=== PATIENT | female | born 1960 | race Caucasian/White ===

== ENCOUNTER 2019-09-16 12:26 | Outpatient (REF) | payer OTHER, SELFPAY ==
[2019-09-16 18:41] LABS: Hemoglobin A1C 10.1 % (3.8-5.6)
[2019-09-16 18:44] LABS: ALT 54 U/L (14-59); AST 47 U/L (15-37); Albumin 3.4 g/dL (3.4-5.0); Alkaline Phosphatase 49 U/L (46-116); Anion Gap 10.3 mmol/L (3-11); BUN 13 mg/dL (7-18); Bilirubin, Total 0.6 mg/dL (0.2-1.0); CO2 28.7 mmol/L (21.0-32.0); CREATININE 0.94 mg/dL (0.55-1.02); Calcium 8.9 mg/dL (8.5-10.1); Calculated LDL 58 mg/dL; Chloride 103 mmol/L (98-107); Cholesterol 141 mg/dL (<200); Glucose 233 mg/dL (74-106); HDL Cholesterol 41 mg/dL (40-60); Potassium 4.3 mmol/L (3.5-5.1); Sodium 142 mmol/L (136-145); Total Protein 6.7 g/dL (6.4-8.2); Triglyceride 212 mg/dL (<150)
[2019-09-16 19:23] LABS: Microalb ug/mg Crea 10.6 ug/mg Cr
== END 2019-09-16 12:46 ==
LOC: NCHCN 12:26
PROVIDERS: PCP Nurse Practitioner; Visit Provider Nurse Practitioner
DX: E11.9 Type 2 diabetes mellitus without complications (principal); I10 Essential (primary) hypertension; E78.5 Hyperlipidemia, unspecified
CPT/HCPCS: 80053; 80061; 82043; 82570; 83036

== ENCOUNTER 2019-11-13 02:35 | Outpatient (CLI) | payer OTHER, SELFPAY ==
--- NOTE | 2019-11-13 12:14 | DI.MAMMO_ITS ---
EXAM: MAMMO SCREENING CLINICAL HISTORY: SCREENING, Z12.29 TECHNIQUE: Mammograms were interpreted according to the usual protocol including computer analysis w [employer] CAD system, tomosynthesis and C-view imaging. COMPARISON: 2010 through 2018 FINDINGS: The breasts are composed of mainly fatty density , Breast Density category A. No suspicious masses or suspicious microcalcifications are seen. No skin thickening or abnormal axillary lymph nodes are seen. There has been no significant change from prior exams. IMPRESSION: Bi rads category 1, negative. Yearly screening mammography is recommended. Breast density category A, fatty density. Density:
== END 2019-11-13 02:55 ==
PROVIDERS: PCP Nurse Practitioner; Visit Provider Nurse Practitioner
DX: Z12.31 Encounter for screening mammogram for malignant neoplasm of breast (principal)
CPT/HCPCS: 77063; 77067

== ENCOUNTER 2020-05-26 20:58 | Outpatient (REF) | payer SELFPAY ==
[2020-05-28 17:17] LABS: Patient Race White; SARS-CoV-2 RNA Undetected (Undetected); SARS-CoV-2 Specimen Source Nasal
== END 2020-05-26 21:18 ==
LOC: NCHCN 20:58
PROVIDERS: PCP Nurse Practitioner; Visit Provider Nurse Practitioner
DX: Z11.59 Encounter for screening for other viral diseases (principal)
CPT/HCPCS: U0003

== ENCOUNTER 2020-06-23 14:56 | Outpatient (REF) | payer OTHER, SELFPAY ==
[2020-06-25 17:48] LABS: Patient Race White; SARS-CoV-2 RNA Undetected (Undetected); SARS-CoV-2 Specimen Source Nasal
== END 2020-06-23 15:16 ==
LOC: NCHCN 14:56
PROVIDERS: PCP Nurse Practitioner; Visit Provider Nurse Practitioner Family
DX: Z20.828 Contact with and (suspected) exposure to other viral communicable diseases (principal)
CPT/HCPCS: U0003

== ENCOUNTER 2021-02-17 12:50 | Outpatient (REF) | payer OTHER, SELFPAY ==
--- NOTE | 2021-02-17 12:15 | PAPFT_PTH ---
PATIENT: Jyoti Bonilla LOC: [facility]#:[id number] AGE/SX: 60/F ROOM: RE02/17/[address]: Akanksha Jackson : 1960 BED: DIS: 02/17/2021 SPEC #: [id number] RECD: 02/18/21 12:37 STATUS: JUAN MIGUEL REDany #: [id number] PATT: 02/17/21 12:[address]: Akanksha Jackson DEPT: [facility] Cytology RECD BY: Jessenia Narayanan Tissues: 1 - CX/ENDOCX FOR PAP SMEARS Procedures: PAP THIN PREP/UVM Screening HPV DNA PROBE Comments: [id number]
[2021-02-17 17:51] LABS: COMMENT (LAB VIEW ONLY) 401.37 mg/dL; Microalb ug/mg Crea 13.8 ug/mg Cr
[2021-02-17 20:23] LABS: ALT 49 U/L (14-59); AST 30 U/L (15-37); Albumin 3.6 g/dL (3.4-5.0); Alkaline Phosphatase 50 U/L (46-116); Anion Gap 10.7 mmol/L (3-11); BUN 15 mg/dL (7-18); Bilirubin, Total 0.4 mg/dL (0.2-1.0); CO2 27.3 mmol/L (21.0-32.0); Calcium 9.2 mg/dL (8.5-10.1); Calculated LDL 50 mg/dL (<100); Chloride 104 mmol/L (98-107); Cholesterol 130 mg/dL (<200); Estimated GFR 56.18 (mL/min/1.73m2); Glucose 232 mg/dL (74-106); HDL Cholesterol 46 mg/dL (40-60); Potassium 3.6 mmol/L (3.5-5.1); Sodium 142 mmol/L (136-145); Total Protein 6.9 g/dL (6.4-8.2); Triglyceride 174 mg/dL (<150)
== END 2021-02-17 12:51 | disposition home or self-care (01) ==
LOC: NCHCN 12:50
PROVIDERS: PCP Nurse Practitioner; Visit Provider Nurse Practitioner
DX: Z12.4 Encounter for screening for malignant neoplasm of cervix (principal); Z11.51 Encounter for screening for human papillomavirus (HPV); I10 Essential (primary) hypertension; E11.9 Type 2 diabetes mellitus without complications; E78.5 Hyperlipidemia, unspecified; Z00.00 Encounter for general adult medical examination without abnormal findings
CPT/HCPCS: 80053; 80061; 88142; 82043; 82570; 87624

== ENCOUNTER 2021-10-12 16:43 | Outpatient (REF) | payer OTHER, SELFPAY ==
[2021-10-12 15:31] LABS: BUN 15 mg/dL (7-18); CREATININE 0.8 mg/dL (0.55-1.02); Calcium 9.7 mg/dL (8.5-10.1); Chloride 103 mmol/L (98-107); Glucose 133 mg/dL (74-106); Sodium 141 mmol/L (136-145)
== END 2021-10-12 16:44 | disposition home or self-care (01) ==
LOC: LBN 16:43
PROVIDERS: PCP Nurse Practitioner; Visit Provider Nurse Practitioner Family
DX: E11.9 Type 2 diabetes mellitus without complications (principal)
CPT/HCPCS: 80048

== ENCOUNTER 2021-10-12 17:20 | Outpatient (REF) | payer OTHER, SELFPAY | END 2021-10-12 17:21 | disposition home or self-care (01) | LOC: LBN 17:20 | PROVIDERS: PCP Nurse Practitioner; Visit Provider Nurse Practitioner Family ==

== ENCOUNTER 2022-02-14 07:43 | Day surgery (SDC) | payer OTHER, SELFPAY ==
--- NOTE | 2022-02-14 06:41 | COLE_ITS ---
Colonoscopy Report Date of procedure: 02/14/22 Pre-op diagnosis general: Colon Cancer screening Post-op diagnosis procedure note: same Procedure: Colonoscopy Surgeon: Tracy Javier Anesthesia Type: General:No Airway Estimated blood loss (mL): 0 Pathology: none sent Complications: None Disposition: same day Indications: The patient is here for Colonoscopy pre-op. Her last screening was in 2010, at which time biopsies were taken however they were insufficient for diagnosis. She has no family history of colon cancer. She has not had any bowel habit changes. -Discussed colonoscopy bowel prep as well as the procedure. Discussed possible complications of the procedure to include bleeding, pain, perforation, missed small lesion/polyp, sore throat, aspiration and adverse reaction to the medications. Questions were answered to patient?s satisfaction. No guarantees were implied or given.? Prep: Miralax/Dulcolax Procedure Start Time: 08:33 Procedure End Time: 08:54 Retraction Time: 8 minutes Findings: Normal colonoscopy Procedure Description: After informed consent was obtained the patient was taken to the procedure room and placed in a left decubitous position. Monitors were applied and a time out was done. The patients name, date of , procedure, allergies to m edications and metal in their body was reviewed. The patient was then sedated. Once sedated and comfortable a rectal exam was done. External exam was normal. Internal exam revealed a normal sphincter tone and no palpable masses. The scope was then introduced and retro-flexed. No internal hemorrhoids, polyps or masses were identified on retro-flexion. The scope was then advanced to the cecum without difficulty. The ileocecal vlave and appendiceal orifice were identified. The prep was good. The scope was then slowly retracted over 8 minutes back into the rectum. There were no polyps. There was no diverticulosis noted. The scope was removed and the patient was woken up and taken back to Same day surgery in stable condition. The patient tolerated the procedure well and there were no immediate complications. Follow up: The patient should follow up in 10 years unless they develop changes in bowel habits or other new gastrointestinal complaints.
--- NOTE | 2022-02-14 06:42 | W.PM.DSUDISC ---
Discharge Plan Disposition Patient Disposition: HOME Condition: Good Discharge Details Reason For Visit: Colonoscopy Attending Provider: Tracy Javier Primary Care Provider: Akanksha Jackson Home Meds and New Rx's Prescriptions: Continued insulin glargine [Lantus Solostar U-100 Insulin] 100 unit/mL (3 mL) insulin pen 20 unit subcut QPM metformin 500 mg tablet 1,000 mg PO BID simvastatin 20 mg tablet 20 mg PO DAILY aspirin [Adult Aspirin Regimen] 81 mg tablet,delayed release (DR/EC) 81 mg PO DAILY cholecalciferol (vitamin D3) 25 mcg (1,000 unit) capsule 25 mcg PO DAILY omega-3 fatty acids 500 mg capsule 500 mg PO DAILY Antacid (calcium carbonate) 215 mg calcium (500 mg) tablet,chewable 430 mg PO DAILY multivitamin Tablet 1 tab PO DAILY lisinopril 5 mg tablet 5 mg PO DAILY Trulicity 3 mg/0.5 mL pen injector 3 mg subcut QWEEK Discharge Instructions Additional Instructions: Findings: Normal colonoscopy Follow up: 10 years Please call if you develop: fevers >101.5 Nausea or Vomiting Abdominal pain that is not transient Rectal bleeding that is more then a tbsp A hard abdomen and inability to pass gas DAY SURGERY UNIT POST ENDOSCOPY INSTRUCTIONS Instructions for everyone who is given Anesthesia: For your safety, please do the following for the next 24 Hours: a. Do not drive or operate dangerous equipment b. Do not drink alcohol beverages or use any recreational drugs for the first 24 hours or while taking pain medications. The medications in your body may have a reaction that can be dangerous. c. Do not make any important decisions or sign any important papers 1. Generally there are no restrictions on your activity after a day or so has gone by, but you may feel a bit fatigued for a few days. 2. After you arrive home you may have a light meal and return to a normal diet as you can tolerate it without feeling sick to your stomach. 3. After surgery, you may feel pain or discomfort. This should be only transient, but if it persists please contact your doctor. 4. If there are any questions regarding the findings of your procedure, please feel free to contact your doctor. 6. If you are unable to contact your doctor with a problem, contact the hospital at [phone]. 7. Continue all your regular medications unless directed otherwise. I understand the above instructions and have no questions. Signature of Patient or Responsible Adult Escort Date/Time Name of Responsible Adult Escort Signature of Nurse Date/Time Activity:: Activity as Tolerated Diet:: As Tolerated Discharge Orders Discharge Orders: Discharge Order (Routine); Ordered 02/14/22 Ordered By: Tracy Javier
[2022-02-14 08:05] VITALS: BP 142/73; PULSE 88; RESP 16; TEMP 35.9; O2SAT 97
[2022-02-14] MEDS: Lactated Ringers 1,000 ML 80 ML IV (08:13)
--- NOTE | 2022-02-14 08:18 | W.ANESPRE ---
General Info Date of Service Date Performed: 02/14/22 Height: 5 ft 5 in Weight: 110.4 kg Body Mass Index (BMI): 40.5 Surgical Procedure: Operation Date: 02/14/22 08:50 Proposed Procedure Side Surgeon bereket Javier MD Meds Allergies and Home Medications Allergies Allergy/AdvReac Type Severity Reaction Status Date / Time No Known Allergies Allergy Verified 02/14/22 08:02 Home Medication Medication Instructions Recorded aspirin 81 mg tablet,delayed 81 mg PO DAILY 01/21/22 release (Adult Aspirin Regimen) calcium carbonate 215 mg calcium 430 mg PO DAILY 01/21/22 (500 mg) chewable tablet (Antacid (calcium carbonate)) cholecalciferol (vitamin D3) 25 25 mcg PO DAILY 01/21/22 mcg (1,000 unit) capsule insulin glargine 100 unit/mL (3 20 unit subcut QPM 01/21/22 mL) subcutaneous pen (Lantus Solostar U-100 Insulin) metformin 500 mg tablet 1,000 mg PO BID 01/21/22 multivitamin 1 tab PO DAILY 01/21/22 omega-3 fatty acids 500 mg capsule 500 mg PO DAILY 01/21/22 simvastatin 20 mg tablet 20 mg PO DAILY 01/21/22 lisinopril 5 mg tablet 5 mg PO DAILY 01/27/22 dulaglutide 3 mg/0.5 mL 3 mg subcut QWEEK 01/28/22 subcutaneous pen injector (Trulicity) Current Visit Medications: Current Medications Generic Name Dose Route Start Last Admin Trade Name Freq PRN Reason Stop Dose Admin Hyoscyamine Sulfate 0.125 mg 02/14/22 06:43 Hyoscyamine 0.125 Mg Sl/Oral/Chew SL DIRECTED PRN Ringer's Solution 1,000 mls @ 80 mls/hr 02/14/22 06:00 02/14/22 08:13 IV 03/13/22 23:59 80 mls/hr INFUSION SILVIANO Administration IV Miscellaneous Supplies 1 each 02/14/22 06:00 Iv Access IV 03/13/22 23:59 DIRECTED SILVIANO Ondansetron HCl 4 mg 02/14/22 06:43 Ondansetron 4 Mg/2 Ml Vial IVP Q4H PRN PRN Nausea / Vomiting Sodium Chloride 0 ml 02/14/22 06:00 Normal Saline Flush 10 Ml Syr IV 03/13/22 23:59 PRN PRN Sodium Chloride 0 ml 02/14/22 06:00 Normal Saline 10 Ml Vial IJ 03/13/22 23:59 DIRECTED PRN Sterile Water 0 ml 02/14/22 06:00 Water,Injection,Sterile 10 Ml Vial IJ 03/13/22 23:59 DIRECTED PRN PFSH Active Problems Active Problems: Problem Status Onset Code Screening for colon cancer Z12.11 Diabetes E11.9 Hypertension I10 Morbid obesity E66.01 Medical History Medical History Chronic back pain Depression Headache Hyperlipidemia Neoplasm of unspecified nature of bone, soft tissue, 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 Surgical History Surgical History History of cholecystectomy History of colonoscopy History of tubal ligation Tobacco Smoking/Tobacco Use Status: Never Alcohol Alcohol Intake: current Alcohol intake frequency: a few times a month Alcohol type: wine and hard liquor Substance Use Substance use: Never Substance use type: does not use Vital Signs and Lab Results Vital Signs Most Recent Vital Signs in EMR: Most Recent Vital Signs Temp Pulse Resp BP Pulse Ox 35.9 C L 88 16 142/73 H 97 02/14/22 08:05 02/14/22 08:05 02/14/22 08:05 02/14/22 08:05 02/14/22 08:05 Point of Care Results Point of Care Results: Finger Stick Blood Glucose 99 02/14/22 08:12 Lab Results Blood Type / Crossmatch: No Data to Display Complete Blood Count: No Data to Display Complete Metabolic Panel: No Data to Display Liver Function Panel: No Data to Display Coagulation Panel: No Data to Display Cardiac Panel: No Data to Display Arterial Blood Gas: No Data to Display Venous Blood Gas: No Data to Display Pancreas Panel: No Data to Display Thyroid Panel: No Data to Display Infectious Disease: No Data to Display Blood Cultures: No Data to Display Toxicology Panel: No Data to Display Anesthesia Assessment and Plan Anesthesia History Personal History: No History of Anesthesia Complications Family History: No Family History of Anesthesia Complications Exercise Tolerance Exercise Tolerance: Metabolic Equivalents>4 Pertinent Negatives Pertinent Negatives: No Symptoms of GERD, No Major Cardiovascular Symptoms or Complaints and No Major Pulmonary Symptoms or Complaints Cardiac & Pulmonary Exam Cardiac Exam: Normal S1/S2 Heart Sounds Pulmonary Exam: Clear Bilateral Breath Sounds Implantable Cardiac Device Does patient have a Pacemaker or an ICD?: No Airway Exam Known Difficult Airway: No Mallampati Class: 3 Mouth Opening: Narrow (< 3cm) Thyromental Distance: Greater than 3 cm Neck Range of Motion: Full ROM Neck Circumference: Normal Teeth Condition: Normal Dentition ASA Classification ASA Score: ASA 3 Emergency Case?: No NPO Status NPO Status: NPO Clears >2 hours, Solids >8 hours Anesthesia Plan Resuscitation Status: Full Code Anesthesia Technique: General Anesthesia Airway Planned: Natural Airway Monitors Used: Standard Monitors
[2022-02-14 08:25] VITALS: BMI 40.5
[2022-02-14 09:00] VITALS: BP 106/57; PULSE 79; RESP 20; TEMP 36.1; O2SAT 96
[2022-02-14 09:26] VITALS: BP 111/63; PULSE 74; RESP 18; TEMP 36.1; O2SAT 96
--- NOTE | 2022-02-14 09:39 | W.ANESPOSTOP ---
Postoperative Evaluation Date, Time and Location Date Performed: 02/14/22 Time Performed: 09:15 Patient Location: Day Surgery Unit Vital Signs Most Recent Imported Vital Signs: Most Recent Vital Signs Temp Pulse Resp BP Pulse Ox 36.1 C L 74 18 111/63 96 02/14/22 09:26 02/14/22 09:26 02/14/22 09:26 02/14/22 09:26 02/14/22 09:26 Pain Score Most Recent Pain Score: Most Recent Pain Score Pain Level 0 02/14/22 09:26 Assessment Mental Status: Awake (Alert & Oriented to Patient Baseline) Airway and Respiratory Function: Patent airway with normal (patient baseline) respiratory exam Cardiovascular Function: Hemodynamically Stable Hydration Status: Adequately Hydrated Nausea & Vomiting: No Nausea or Vomiting Pain: Pt. Denies Any Pain Peripheral Nerve Block: Patient did not receive a nerve block
== END 2022-02-14 09:47 | disposition home or self-care (01) ==
PROVIDERS: PCP Nurse Practitioner; Visit Provider Surgery
PROC: 0DJD8ZZ Inspection of Lower Intestinal Tract, Via Natural or Artificial Opening Endoscopic (ICD-10-PCS; CPT 45378; principal; 2022-02-14 08:45)
DX: Z12.11 Encounter for screening for malignant neoplasm of colon (principal); E11.9 Type 2 diabetes mellitus without complications; E66.01 Morbid (severe) obesity due to excess calories; I10 Essential (primary) hypertension
CPT/HCPCS: 45378

== ENCOUNTER 2022-10-24 01:36 | Outpatient (CLI) | payer OTHER, SELFPAY ==
--- NOTE | 2022-10-24 12:45 | DI.MAMMO_ITS ---
Exam(s) MAMMO SCREENING EXAM: MAMMO SCREENING CLINICAL HISTORY: SCREENING, Z12.39 TECHNIQUE: Mammograms were interpreted according to the usual protocol including computer analysis w [employer] CAD system, tomosynthesis and C-view imaging. COMPARISON: 2013 through 2019 FINDINGS: The breasts are composed of mainly fatty density , Breast Density category A. No suspicious masses or suspicious microcalcifications are seen. No skin thickening or abnormal axillary lymph nodes are seen. There has been no significant change from prior exams. IMPRESSION: BI-RADS Category 1, Negative mammogram Yearly screening mammography is recommended. Breast Density - Category A, fatty density. A negative radiographic report should not delay biopsy if a dominant or clinically suspicious mass is present. Up to ten percent of cancers are not identified on mammography. A negative report may reinforce clinical impression. Adenosis and dense breasts may obscure an underlying neoplasm. False positive reports average 6 to 10%. Patient will receive a letter notifying them of these results.
== END 2022-10-24 01:56 ==
LOC: DI 01:36
PROVIDERS: PCP Nurse Practitioner; Visit Provider Nurse Practitioner Family
DX: Z12.31 Encounter for screening mammogram for malignant neoplasm of breast (principal)
CPT/HCPCS: 77063; 77067

== ENCOUNTER 2023-05-23 12:48 | Outpatient (CLI) | payer OTHER, SELFPAY ==
[2023-05-23 12:56] LABS: Abs Immature Grans 0.01 10^3/uL (0.0-0.06); Absolute Basophil Count 0.01 10^3/uL (0.0-0.2); Absolute Eosinophil Count 0.05 10^3/uL (0.0-0.7); Absolute Lymphocyte Count 1.47 10^3/uL (1.2-3.4); Absolute Monocyte Count 0.28 10^3/uL (0.1-0.8); Basophils % 0.2; Eosinophils % 1.2; HCT 38.3 % (36.0-46.0); HGB 12.4 g/dL (11.2-15.7); Immature Grans % 0.2; MCHC 32.4 % (32.0-36.0); MCV 93 fL (80-95); MPV 10.5 fL (8.0-11.0); Monocytes % 6.5; Neutrophils % 57.9; Platelet Count 100 10^3/uL (130-400); RBC 4.13 10^6/uL (3.93-5.22); RDW 13.2 % (11.7-14.6); RDW-SD 45.1 fL; WBC 4.32 10^3/uL (4.4-10.8)
[2023-05-23 13:20] LABS: ALT 54 U/L (14-59); AST 66 U/L (15-37); Albumin 3.2 g/dL (3.4-5.0); Alkaline Phosphatase 50 U/L (46-116); Anion Gap 9.2 mmol/L (3-11); BUN 20 mg/dL (7-18); Bilirubin, Total 0.4 mg/dL (0.2-1.0); CO2 25.8 mmol/L (21.0-32.0); Calcium 9.3 mg/dL (8.5-10.1); Calculated LDL 58 mg/dL (<100); Chloride 104 mmol/L (98-107); Cholesterol 145 mg/dL (<200); Estimated GFR 62.91 (mL/min/1.73m2); Glucose 195 mg/dL (74-106); HDL Cholesterol 46 mg/dL (40-60); Sodium 139 mmol/L (136-145); Total Protein 6.8 g/dL (6.4-8.2); Triglyceride 208 mg/dL (<150)
== END 2023-05-23 12:49 | disposition home or self-care (01) ==
LOC: LBO 12:48
PROVIDERS: PCP Nurse Practitioner; Visit Provider Nurse Practitioner Family
DX: E11.9 Type 2 diabetes mellitus without complications (principal); I10 Essential (primary) hypertension; E78.5 Hyperlipidemia, unspecified
CPT/HCPCS: 36415; 80053; 80061; 85025

== ENCOUNTER 2024-06-18 15:16 | Outpatient (CLI) | payer OTHER, SELFPAY ==
[2024-06-18 15:01] LABS: HCT 37.4 % (36.0-46.0); HGB 12.2 g/dL (11.2-15.7); MCH 29.6 pg (27.0-33.0); MCHC 32.6 % (32.0-36.0); MCV 91 fL (80-95); MPV 9.8 fL (8.0-11.0); Platelet Count 123 10^3/uL (130-400); RBC 4.12 10^6/uL (3.93-5.22); RDW 13.2 % (11.7-14.6); WBC 4.83 10^3/uL (4.4-10.8)
[2024-06-18 16:37] LABS: ALT 24 U/L (14-59); AST 25 U/L (15-37); Albumin 3.3 g/dL (3.4-5.0); Alkaline Phosphatase 59 U/L (46-116); Anion Gap 9.2 mmol/L (3-11); BUN 16 mg/dL (7-18); Bilirubin, Total 0.54 mg/dL (0.2-1.0); CO2 27.8 mmol/L (21.0-32.0); CREATININE 0.9 mg/dL (0.55-1.02); Calcium 9.6 mg/dL (8.5-10.1); Calculated LDL 99 mg/dL (<100); Chloride 109 mmol/L (98-107); Cholesterol 180 mg/dL (<200); Estimated GFR 70.95 (mL/min/1.73m2); Glucose 105 mg/dL (74-106); HDL Cholesterol 52 mg/dL (40-60); Potassium 4.3 mmol/L (3.5-5.1); Sodium 146 mmol/L (136-145); Total Protein 6.8 g/dL (6.4-8.2); Triglyceride 147 mg/dL (<150); Vitamin D 25 Total 36.6 ng/mL (30-100)
[2024-06-18 16:57] LABS: Hemoglobin A1C 5.7 % (<5.7)
[2024-06-18 23:27] LABS: HIV-1/2 Ag & Ab Screen Negative (Negative)
[2024-06-18 23:35] LABS: Hepatitis C Ab w Rflx HCV PCR Negative (Negative)
== END 2024-06-18 15:17 | disposition home or self-care (01) ==
LOC: LBO 15:18
PROVIDERS: Visit Provider Nurse Practitioner Family
DX: Z00.00 Encounter for general adult medical examination without abnormal findings (principal)
CPT/HCPCS: 36415; 80053; 80061; 82306; 85027; 86803; 87389; 83036

== ENCOUNTER 2024-06-26 02:22 | Outpatient (CLI) | payer OTHER, SELFPAY ==
--- NOTE | 2024-06-26 | DI.MAMMO_ITS ---
Exam(s) MAMMO SCREENING EXAM: MAMMO SCREENING CLINICAL HISTORY: SCREENING, Z12.31. TECHNIQUE: Bilateral full field digital CC and MLO mammographic images were obtained with 3D tomosyn thesis and utilizing computer aided detection (CAD). COMPARISON: Prior mammograms were reviewed. FINDINGS: There has been no significant change in the appearance and distribution of the fibroglandular tissue. Skin moles bilaterally again noted. There are no new spiculated masses nor malignant appearing microcalcification groups. There is no significant architectural distortion nor skin thickening-retraction. IMPRESSION: No radiographic evidence of malignancy. BI-RADS Category 1 - Negative Breast Density - Category A - Almost entirely fatty Breast density Category C or D implies that the patient has dense breast tissue. Dense breast tissue can make it harder to find cancer on a mammogram. Dense breast tissue is also associated with an incr eased risk of breast cancer. This information about the result of the mammogram report was provided to the patient to raise their awareness. Use this report when you speak with the patient about their risks for breast cancer, which includes their family history. At that time, you may recommend additional screening tests (Ultrasoun d or MRI) as these tests may add significant information. A negative radiographic report should not delay biopsy if a dominant or clinically suspicious mass is present. Up to ten percent of cancers are not identified on mammography. A negative report may reinforce clinical impression. Adenosis and dense breasts may obscure an underlying neoplasm. False positive reports average 6 to 10%. Patient will receive a letter notifying them of these results.
== END 2024-06-26 02:42 ==
LOC: DI 02:22
PROVIDERS: Visit Provider Nurse Practitioner Family
DX: Z12.31 Encounter for screening mammogram for malignant neoplasm of breast (principal)
CPT/HCPCS: 77063; 77067

== ENCOUNTER 2024-07-04 02:18 | Outpatient (CLI) | payer OTHER, SELFPAY ==
--- NOTE | 2024-07-04 | DI.DEXA_ITS ---
Exam(s) XR DEXA BONE DENSITY W/WO LALITHA EXAM: XR DEXA BONE DENSITY W/WO LALITHA CLINICAL HISTORY: Asymptomatic menopausal state, Z78.0; Screening for osteoporosis, Z13.820 TECHNIQUE: [employer] C densitometer analysis of left hip, lumbar spine and left forearm. Lat eral survey image of the thoracic and lumbar spine. COMPARISON: No exams were available for comparison FINDINGS: Lateral view of the thoracic and lumbar spine shows no evidence of compression fractures. Bone mineral density measurements of the lumbar spine correspond to a total T-score of 2.4, in the n ormal range. Bone mineral density measurements of the left hip correspond to a total T-score of 0.7. The femoral neck T-score is 0.7, in the normal range. Theleft forearm bone mineral density measurements correspond to a T-score of the distal 3rd of -0.5, in the normal range. IMPRESSION: Normal bone mineral density.
== END 2024-07-04 02:38 ==
PROVIDERS: PCP Nurse Practitioner Family; Visit Provider Nurse Practitioner Family
DX: Z13.820 Encounter for screening for osteoporosis (principal); Z78.0 Asymptomatic menopausal state
CPT/HCPCS: 77080

== ENCOUNTER 2024-10-10 14:32 | Outpatient (REF) | payer OTHER, SELFPAY ==
--- NOTE | 2024-10-10 14:30 | PAPFT_PTH ---
PATIENT: Jyoti Bonilla LOC: [facility] U#:[id number] AGE/SX: 64/F ROOM: RE10/10/[address]: Bonnie Crawford DO : 1960 BED: DIS: 10/10/2024 SPEC #: [id number] RECD: 10/10/24 17:36 STATUS: RAFAELAAarti REQ #: [id number] PATT: 10/10/24 14:[address]: Bonnie Crawford DEPT: [facility] Cytology RECD BY: Jessenia Narayanan ENTERED: 10/10/24 17:37 SP TYPE: PAPFT OTHR DR: JAYDA AGUILERA NP Tissues: 1 - CX/ENDOCX FOR PAP SMEARS Procedures: PAP THIN PREP/UVM Screening HPV DNA PROBE Comments: [id number] (HPV 16 & 18/45)
--- NOTE | 2024-10-10 14:30 | ENDOMET_PTH ---
PATIENT: Jyoti oBnilla LOC: [facility] U#:[id number] AGE/SX: 64/F ROOM: RE10/10/[address]: Bonnie Crawford DO : 1960 BED: DIS: 10/10/2024 SPEC #: [id number] RECD: 10/10/24 16:29 STATUS: JUAN MIGUEL RE #: [id number] PATT: 10/10/24 14:[address]: Bonnie Crawford DEPT: Surgical Specimen RECD BY: Jessenia Narayanan ENTERED: 10/10/24 16:30 SP TYPE: Endomet OTHR DR: JAYDA AGUILERA NP Tissues: 1 - ENDOMETRIUM BX/ALFREDA Procedures: GROSS AND MICRO LEVEL 4 IMMUNOPEROXIDASE STAIN Comments: [id number]
== END 2024-10-10 14:33 | disposition home or self-care (01) ==
LOC: LBN 14:32
PROVIDERS: PCP Nurse Practitioner Family; Visit Provider Obstetrics & Gynecology
DX: Z11.51 Encounter for screening for human papillomavirus (HPV) (principal); Z01.419 Encounter for gynecological examination (general) (routine) without abnormal findings; C54.1 Malignant neoplasm of endometrium
CPT/HCPCS: 88142; 88305; 87624; 88361

== ENCOUNTER 2025-01-15 02:35 | Outpatient (RCR) | payer OTHER, SELFPAY ==
[2025-01-15] MEDS: Normal Saline Flush 10 ML SYR IVP (07:59)
[2025-01-15 08:07] LABS: Abs Immature Grans 0.02 10^3/uL (0.0-0.06); Absolute Basophil Count 0.05 10^3/uL (0.0-0.2); Absolute Eosinophil Count 0.11 10^3/uL (0.0-0.7); Absolute Lymphocyte Count 2.02 10^3/uL (1.2-3.4); Absolute Monocyte Count 0.52 10^3/uL (0.1-0.8); Absolute Neutrophil Count 2.56 10^3/uL (1.2-6.7); Basophils % 0.9 %; Eosinophils % 2.1 %; HCT 34.2 % (36.0-46.0); HGB 11.2 g/dL (11.2-15.7); Immature Grans % 0.4 %; Lymphocytes % 38.3 %; MCH 28.3 pg (27.0-33.0); MCHC 32.7 % (32.0-36.0); MCV 86 fL (80-95); MPV 9.2 fL (8.0-11.0); Monocytes % 9.8 %; Neutrophils % 48.5 %; Platelet Count 193 10^3/uL (130-400); RBC 3.96 10^6/uL (3.93-5.22); RDW 15.3 % (11.7-14.6); RDW-SD 46.2 fL; WBC 5.28 10^3/uL (4.4-10.8)
[2025-01-15 08:37] LABS: ALT 28 U/L (14-59); AST 24 U/L (15-37); Albumin 2.7 g/dL (3.4-5.0); Alkaline Phosphatase 67 U/L (46-116); Anion Gap 10.4 mmol/L (3-11); BUN 15 mg/dL (7-18); Bilirubin, Total 0.3 mg/dL (0.2-1.0); CO2 25.6 mmol/L (21.0-32.0); CREATININE 0.8 mg/dL (0.55-1.02); Calcium 9.1 mg/dL (8.5-10.1); Chloride 106 mmol/L (98-107); Estimated GFR 81.21 (mL/min/1.73m2); Glucose 156 mg/dL (74-106); Potassium 3.2 mmol/L (3.5-5.1); Sodium 142 mmol/L (136-145); TSH 5.21 uIU/mL (0.36-3.74); Total Protein 6.5 g/dL (6.4-8.2)
== END 2025-02-01 23:59 | disposition home or self-care (01) ==
LOC: INF 02:35
PROVIDERS: Obstetrics & Gynecology Gynecologic Oncology; PCP Nurse Practitioner Family; Visit Provider Internal Medicine Hematology & Oncology
DX: C54.1 Malignant neoplasm of endometrium (principal)
CPT/HCPCS: 36591; 80053; 84439; 84443; 85025

== ENCOUNTER 2025-01-20 14:41 | Outpatient (CLI) | payer OTHER, SELFPAY ==
--- NOTE | 2025-01-20 | DI.US_ITS ---
Exam(s) US LOWER EXTREMITY VENOUS LT EXAM: US LOWER EXTREMITY VENOUS LT CLINICAL HISTORY: EDEMA LT LOWER LEG, ?? DVT,R60.0. TECHNIQUE: Lower extremity venous ultrasound performed using grayscale, color-flow, and spectral Do ppler analysis. COMPARISON: No exams were available for comparison FINDINGS: The common femoral, femoral and popliteal veins demonstrate normal compressibility, augmentation, and color Doppler. The posterior tibial and peroneal veins are patent. No saphenous vein thrombosis or other superficial venous thrombosis is seen. No hematoma or Martines's cyst is seen. IMPRESSION: Negative lower extremity ultrasound. No evidence of DVT. DATA REPOSITORY:
[2025-01-20 16:48] LABS: Bilirubin Negative (Negative); Blood Negative (Negative); Clarity Clear (Clear); Glucose Negative (Negative); Ketones Negative (Negative); Leukocyte Esterase Negative (Negative); Nitrite Negative (Negative); Urobilinogen 0.2 mg/dL (Up to 0.2); pH 5.5 (5-8)
== END 2025-01-20 14:42 | disposition home or self-care (01) ==
LOC: DI 14:41 → LBN 16:11
PROVIDERS: PCP Nurse Practitioner Family; Visit Provider Nurse Practitioner Family
DX: R35.0 Frequency of micturition (principal)
CPT/HCPCS: 81003; 93971

== ENCOUNTER 2025-02-05 02:03 | Outpatient (RCR) | payer OTHER, SELFPAY ==
[2025-02-05] MEDS: Normal Saline Flush 10 ML SYR IVP (07:47)
[2025-02-05 08:15] LABS: Abs Immature Grans 0.06 10^3/uL (0.0-0.06); Absolute Basophil Count 0.03 10^3/uL (0.0-0.2); Absolute Eosinophil Count 0.07 10^3/uL (0.0-0.7); Absolute Lymphocyte Count 2.41 10^3/uL (1.2-3.4); Absolute Monocyte Count 0.63 10^3/uL (0.1-0.8); Basophils % 0.4 %; Eosinophils % 0.9 %; HCT 33.3 % (36.0-46.0); HGB 10.6 g/dL (11.2-15.7); Immature Grans % 0.7 %; Lymphocytes % 29.4 %; MCH 28.6 pg (27.0-33.0); MCHC 31.8 % (32.0-36.0); MCV 90 fL (80-95); MPV 9.6 fL (8.0-11.0); Monocytes % 7.7 %; Neutrophils % 60.9 %; Platelet Count 190 10^3/uL (130-400); RBC 3.71 10^6/uL (3.93-5.22); RDW 18.6 % (11.7-14.6); RDW-SD 57.2 fL
[2025-02-05 08:56] LABS: ALT 24 U/L (14-59); AST 21 U/L (15-37); Albumin 3.1 g/dL (3.4-5.0); Alkaline Phosphatase 56 U/L (46-116); Anion Gap 11.2 mmol/L (3-11); BUN 17 mg/dL (7-18); Bilirubin, Total 0.5 mg/dL (0.2-1.0); CO2 25.8 mmol/L (21.0-32.0); CREATININE 0.9 mg/dL (0.55-1.02); Calcium 9.3 mg/dL (8.5-10.1); Chloride 105 mmol/L (98-107); Estimated GFR 70.51 (mL/min/1.73m2); Glucose 122 mg/dL (74-106); Potassium 3.8 mmol/L (3.5-5.1); Sodium 142 mmol/L (136-145); TSH 10.31 uIU/mL (0.36-3.74); Total Protein 7.1 g/dL (6.4-8.2)
[2025-02-05 09:26] LABS: T4 10.3 ug/dL (4.7-13.3)
[2025-02-05 10:21] LABS: FREE T4 1.25 ng/dL (0.76-1.46)
[2025-02-05 19:16] LABS: CA 125 38 U/mL (<30)
== END 2025-03-03 23:59 | disposition home or self-care (01) ==
LOC: INF 02:03
PROVIDERS: PCP Nurse Practitioner Family; Visit Provider Internal Medicine Hematology & Oncology
DX: C54.1 Malignant neoplasm of endometrium (principal); Z45.2 Encounter for adjustment and management of vascular access device
CPT/HCPCS: 36591; 80053; 86304; 84436; 84439; 84443; 85025

== ENCOUNTER 2025-02-28 16:51 | Inpatient (IN) | payer OTHER, SELFPAY ==
[2025-02-28] VITALS (41 sets, daily range): BP systolic 86–146; BP diastolic 22–81; PULSE 92–126; RESP 15–30; TEMP 36.7; O2SAT 91–95
--- NOTE | 2025-02-28 16:45 | RT.EKG_ITS ---
APPROVED REPORT Exam: Resting ECG Reason for Exam: dizziness Patient Location: E HR:105 bpm ECG Measurements Heart Rate 105 AXIS SC 147 P 42 QRSd 80 QRS -26 QT 330 T 28 QTc 436 Conclusion Sinus tachycardia 105 normal axis no stemi
--- NOTE | 2025-02-28 17:28 | W.ED.GENAD ---
Discharge Plan Disposition Patient Disposition: Admit to [facility] Condition: Stable Discharge Details Clinical Impression: Pleural effusion Primary Care Provider: JAYDA AGUILERA ED Provider: Rajinder Pete Home Meds and New Rx's Prescriptions: No Action ondansetron 4 mg tablet,disintegrating 4 - 8 mg PO Q8H PRN Patient Comments: place ONE TO TWO tablets ON THE TONGUE every EIGHT hours needed, not TO exceed FOUR tablets PER DAY prochlorperazine maleate 10 mg tablet 10 mg PO Q6H PRN Patient Comments: TAKE ONE TABLET BY MOUTH EVERY 6 HOURS ON schedule FOR THE first THREE DAYS AFTER chemotherapy, THEN take ONE tablet every SIX hours needed FOR NAUSEA AND vomiting dexamethasone 4 mg tablet 4 mg PO BID PRN Patient Comments: TAKE ONE TABLET BY MOUTH TWICE DAILY NEEDED FOR NAUSEA OR FOR VOMITING insulin glargine [Lantus Solostar U-100 Insulin] 100 unit/mL (3 mL) insulin pen 20 unit subcut QPM Patient Comments: states she is not taking - moved to [facility] metformin 500 mg tablet 1,000 mg PO BID simvastatin 20 mg tablet 20 mg PO DAILY cholecalciferol (vitamin D3) 25 mcg (1,000 unit) capsule 25 mcg PO DAILY omega-3 fatty acids 500 mg capsule 500 mg PO DAILY multivitamin Tablet 1 tab PO DAILY lisinopril 5 mg tablet 5 mg PO DAILY Antacid (calcium carbonate) 215 mg calcium (500 mg) tablet,chewable 500 mg PO DAILY cetirizine 5 mg tablet 5 mg PO DAILY PRN Ozempic 0.25 mg or 0.5 mg (2 mg/3 mL) pen injector 0.25 mg subcut QWEEK Rx Instructions: for 4 weeks insulin glargine U-300 conc [Toujeo Max U-300 SoloStar] 300 unit/mL (3 mL) insulin pen 20 unit subcut HS Xiidra 5 % dropperette 2 drp ophthalmic (eye) QAM AND QPM Rx Instructions: administer approximately 12 hours apart HPI General Date/Time Provider Initiated Documentation: 02/28/25 17:26. HPI Narrative: 64 year-old female presents to ED today by POV/ambulating with her with a chief complaint of increased dizziness, shortness of breath, only able to take a few steps with onset for weeks, but worse lately. Patient has active cancer treatment last chemo 02/05 with primary uterine mass, and mets to lungs- with history of pleural effusion requiring IR drainage at [facility]. Quality described as just feels weaker than normal, denies fever and chest pain, no radiation to nausea/vomiting, endorses diarrhea, denies fainting, denies fever, denies abdominal pain. Severity is described as severe for weakness. Palliating factors include nothing specific attempted. Provoking factors include nothing specific. Events leading up to the incident/Associated Symptoms: Patient has another upcoming 6 rounds of chemo. Patient not anticoagulated. Related Data Home Medications ?Medication ?Instructions ?Recorded ?Confirmed cholecalciferol (vitamin D3) 25 25 mcg PO DAILY 01/21/22 02/28/25 mcg (1,000 unit) capsule insulin glargine 100 unit/mL (3 20 unit subcut QPM 01/21/22 02/28/25 mL) subcutaneous pen (Lantus Solostar U-100 Insulin) metformin 500 mg tablet 1,000 mg PO BID 01/21/22 02/28/25 multivitamin 1 tab PO DAILY 01/21/22 02/28/25 omega-3 fatty acids 500 mg capsule 500 mg PO DAILY 01/21/22 02/28/25 simvastatin 20 mg tablet 20 mg PO DAILY 01/21/22 02/28/25 lisinopril 5 mg tablet 5 mg PO DAILY 01/27/22 02/28/25 calcium carbonate (Antacid 500 mg PO DAILY 08/08/24 02/28/25 (calcium carbonate)) cetirizine 5 mg tablet 5 mg PO DAILY PRN 12/10/24 02/28/25 semaglutide 0.25 mg or 0.5 mg (2 0.25 mg subcut QWEEK 12/10/24 02/28/25 mg/3 mL) subcutaneous pen injector (Ozempic) dexamethasone 4 mg tablet 4 mg PO BID PRN 01/07/25 02/28/25 ondansetron 4 mg disintegrating 4 - 8 mg PO Q8H PRN 01/07/25 02/28/25 tablet prochlorperazine maleate 10 mg 10 mg PO Q6H PRN 01/07/25 02/28/25 tablet insulin glargine U-300 conc 300 20 unit subcut HS 02/28/25 02/28/25 unit/mL (3 mL) subcutaneous pen (Toujeo Max U-300 SoloStar) lifitegrast 5 % eye drops in a 2 drp ophthalmic (eye) QAM AND QPM 02/28/25 02/28/25 dropperette (Xiidra) Allergies Allergy/AdvReac Type Severity Reaction Status Date / Time No Known Allergies Allergy Verified 02/28/25 17:06 General Stated Complaint: Dizzy/Sync BALTA: 3 Review of Systems All systems reviewed & are unremarkable except as noted in HPI and below Exam Narrative Exam Narrative: GENERAL APPEARANCE: Well-nourished, non-toxic, awake and alert, atraumatic, moderate acute distress. SKIN: Warm, pale, dry, intact, without rashes/lesions/ulcerations. HEAD: Normocephalic, atraumatic EYES: Normal conjunctiva, no exudates on lids/lashes. ENT: Nares patent, no circumoral cyanosis, no facial swelling NECK: Supple, trachea midline, painless cervical ROM. LUNGS/CHEST: Lungs - R lungs sound diminished, no wheezing L lung, labored respirations, normal A/P diameter, symmetrical expansion, no chest wall deformity HEART (CV/PV): Regular rate and rhythm without murmur, no peripheral edema, no JVD. ABDOMEN: Soft, non-distended, no guarding, no tenderness. MSK: Normal ROM, no swelling/deformity to bilateral UEs or LEs, moving all extremities without weakness, no cyanosis, spine midline without tenderness, normal curvature. NEURO: Mental Status AAOx4 - alert to person, place, time, events No facial droop, no forehead involvement. Motor: No focal weakness - strength 5/5 in bilateral UEs and LEs, proximal and distal, symmetric. Sensory: sensation intact to light touch globally. Gait normal: patient ambulated without ataxia into ED room. PSYCH: euthymic, cooperative, pleasant, appropriate speech Course Vital Signs Vital signs: Vital Signs Temperature 36.7 C 02/28/25 17:01 Pulse 110 H 02/28/25 17:01 Respiratory Rate 18 02/28/25 17:01 Blood Pressure 146/81 H 02/28/25 17:01 Pulse Oximetry 91 L 02/28/25 17:01 Temperature 36.7 C 02/28/25 17:01 Temperature Source Oral 02/28/25 17:01 Pulse 110 H 02/28/25 17:01 Respiratory Rate 18 02/28/25 17:20 Respiratory Effort Normal, Non-Labored 02/28/25 17:20 Respiratory Depth Normal 02/28/25 17:20 Respiratory Pattern Normal 02/28/25 17:20 Blood Pressure 146/81 H 02/28/25 17:01 Pulse Oximetry 91 L 02/28/25 17:01 Pain Level 0 02/28/25 17:01 Medical Decision Making This dictation utilizes [id number] dictation software and may contain unedited grammatical errors. 64 year-old female presents to ED today by POV/ambulating with her with a chief complaint of increased dizziness, shortness of breath, only able to take a few steps with onset for weeks, but worse lately. Patient has active cancer treatment last chemo 02/05 with primary uterine mass, and mets to lungs- with history of pleural effusion requiring IR drainage at [facility] [facility]. Quality described as just feels weaker than normal, denies fever and chest pain, no radiation to nausea/vomiting, endorses diarrhea, denies fainting, denies fever, denies abdominal pain. Severity is described as severe for weakness. Palliating factors include nothing specific attempted. Provoking factors include nothing specific. Events leading up to the incident/Associated Symptoms: Patient has another upcoming 6 rounds of chemo. Patients' medical history: Known uterine mass with tumors in the lungs, headache, back pain, palliative care, Port-A-Cath in place T2DM, hypertension. Family and social history: Lives at home with , no sick contacts, no recent travel, eating high protein diet for chemo. Pertinent exam findings / vital signs include diminished lung sounds in the right, transient hypotension, afebrile, no abdominal tenderness. Differential / pathologies of concern include pleural effusion, PE, pneumonia, sepsis, ACS, CHF, malignancy and further metastasis. Diagnostic studies of: - CBC, VBG, lactate, CMP, uric acid, phosphorus, magnesium, troponin, BNP,, lipase, TSH, procalcitonin, blood cultures, CTA chest PE study. Interventions of: -[facility] cannot accept transfer tonight- prior pleural effusion had required IR, do have IR consult pending. Possible to admit here- as drainage could possibly be performed here, Dr. Springer is aware, will pursue hospitalist admission- [facility] stated to call back tomorrow for possible transfer, vs down & back drain placement. Spoke with Dr. Early of IR who stated that down & back would not be possible over the weekend. Consulting with Dr. Chen for admission, accepted at 2228. 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 Her pleural effusion has returned, she is tachypneic and it is causing some mediastinal shift which I think should be admitted to the hospital, Dr. Springer is aware, he may be able to drain it though it may require IR as it has in the past, this should be evaluated through consult, [facility] would like us to call back tomorrow for possible transfer if we cannot take care of it at this hospital. The patient was onboard with this plan and her is aware of the plan as well. Disposition of Pleural Effusion. Patient verbalized understanding of the plan and return to ED criteria and engaged in shared decision making. Medical Records Medical records reviewed: Yes I reviewed the patient's medical records. Imaging Data Radiologic Study: Attestation: I personally reviewed and interpreted this imaging study as follows: Imaging: CT Scan Radiologist's impression: Exam: CTA Chest With Contrast Exam date and time: 02/28/2025 8:09 PM Age: 64 years old Clinical indication: Prior surgery; Surgery date: 1-6 months; Surgery type: Port; Tachy, SOB, active cancer. Patient has primary uterine cancer TECHNIQUE: Imaging protocol: Computed tomographic angiography of the chest with contrast. Exam focused on the arteries. 3D rendering (Not supervised by radiologist): MIP and/or 3D reconstructed images were created by the technologist. Radiation optimization: All CT scans at this facility use at least one of these dose optimization techniques: automated exposure control; mA and/or kV adjustment per patient size (includes targeted exams where dose is matched to clinical indication); or iterative reconstruction. Contrast material: [id number]; Contrast volume: 100 ml; Contrast route: INTRAVENOUS (IV); COMPARISON: US ABDOMEN LIMITED 08/29/2023 8:36 AM FINDINGS: Tubes, catheters and devices: Right chest wall port, satisfactory position. Pulmonary arteries: No pulmonary emboli. Aorta: 42 mm ascending aortic aneurysm. No rupture. Normal caliber of the descending aorta.. No aortic dissection. Lungs: Motion artifact in the lungs. Moderate multifocal right-sided airspace disease worst in the right lower lobe, pattern favoring compressive atelectasis over pneumonia. Scattered mild air trapping in the lungs. Pleural spaces: Moderate leftward cardiomediastinal shift due to the large right-sided pleural effusion. Large partially loculated right pleural effusion. No pneumothorax. Heart: No cardiomegaly. No pericardial effusion. Lymph nodes: No enlarged lymph nodes. Bones/joints: Chronic bony changes with no acute fracture. Soft tissues: Prominent subcutaneous fat. IMPRESSION: 1. Large partially loculated right pleural effusion. This causes moderate leftward cardiomediastinal shift. 2. Moderate multifocal right-sided airspace disease worst in the right lower lobe, pattern favoring compressive atelectasis over pneumonia. 3. Pulmonary air trapping, likely small airways disease. 4. Incidental findings as described. PROCEDURE INFORMATION: Exam: CT Abdomen And Pelvis With Contrast Exam date and time: 02/28/2025 8:09 PM Age: 64 years old Clinical indication: Prior surgery; Surgery date: 1-6 months; Surgery type: Port; Tachy, SOB, active cancer. Patient has primary uterine cancer TECHNIQUE: Imaging protocol: Computed tomography of the abdomen and pelvis with contrast. Radiation optimization: All CT scans at this facility use at least one of these dose optimization techniques: automated exposure control; mA and/or kV adjustment per patient size (includes targeted exams where dose is matched to clinical indication); or iterative reconstruction. Contrast material: [id number]; Contrast volume: 100 ml; Contrast route: INTRAVENOUS (IV); COMPARISON: US PELVIS TRANSVAGINAL 10/08/2024 12:03 PM FINDINGS: Liver: No hepatic masses. Gallbladder and biliary ducts: Cholecystectomy. Typical caliber of the CBD for a post cholecystectomy patient. Pancreas: No ductal dilation. No mass . Spleen: No splenomegaly or suspicious lesions. Adrenal glands: No suspicious mass. Kidneys and ureters: Benign-appearing renal cyst(s) and/or probable cyst(s). No renal masses or hydronephrosis bilaterally. Stomach and bowel: No obstruction. No mucosal thickening. Appendix: No evidence of appendicitis. Intraperitoneal space: No free air. No significant fluid collection. Vasculature: No abdominal aortic aneurysm. Lymph nodes: Mild multifocal retroperitoneal and moderate left iliac adenopathy likely metastatic given the history. Urinary bladder: No gross wall thickening. Reproductive: Coarsely calcified left adnexal lesion of about 3 cm. Very heterogeneous endometrium is consistent with the history of uterine malignancy. Bones/joints: Chronic bony changes with no acute fracture. Soft tissues: No suspicious lesions. IMPRESSION: 1. No acute findings. 2. Findings consistent with history of uterine malignancy with left iliac and retroperitoneal adenopathy likely metastatic. Additional findings as above. Dictated and Authenticated by: Laura Llamas MD. Lab Data Lab results reviewed: Yes I reviewed the patient's lab results. Labs: 02/28/25 19:39 Blood Blood Culture - Pending 02/28/25 17:40 Blood Blood Culture - Pending Laboratory Tests Range/Units 02/28/25 19:39 WBC (4.4-10.8) 10^3/uL 3.97 L RBC (3.93-5.22) 10^6/uL 3.68 L Hgb (11.2-15.7) g/dL 10.7 L Hct (36.0-46.0) % 33.6 L MCV (80-95) fL 91 MCH (27.0-33.0) pg 29.1 MCHC (32.0-36.0) % 31.8 L RDW (11.7-14.6) % 19.2 H Plt Count (130-400) 10^3/uL 155 MPV (8.0-11.0) fL 9.8 Immature Gran % % 0.5 Neutrophils % % 61.7 Lymphocytes % % 30.7 Monocytes % % 6.0 Eosinophils % % 0.8 Basophils % % 0.3 Nucleated RBC % (0.0-0.3) % 0.0 Absolute Neutrophils (1.2-6.7) 10^3/uL 2.45 Absolute Lymphocytes (1.2-3.4) 10^3/uL 1.22 Absolute Monocytes (0.1-0.8) 10^3/uL 0.24 Absolute Eosinophils (0.0-0.7) 10^3/uL 0.03 Absolute Basophils (0.0-0.2) 10^3/uL 0.01 VBG pH (7.31-7.41) 7.39 VBG pCO2 (41-51) mmHg 46 VBG pO2 mmHg 33 VBG HCO3 (23-28) mmol/L 28 VBG Total CO2 (24-29) mmol/L 26 VBG O2 Saturation % 59 VBG Base Excess (-2-3) mmol/L 3 VBG Lactate (<or=2.0) mmol/L 1.5 Sodium (136-145) mmol/L 141 Potassium (3.5-5.1) mmol/L 3.7 Chloride (98-107) mmol/L 104 Carbon Dioxide (21.0-32.0) mmol/L 29.5 Anion Gap (3-11) mmol/L 7.5 BUN (7-18) mg/dL 14 Creatinine (0.55-1.02) mg/dL 0.8 Est GFR (CKD-EPI 2020) (mL/min/1.73m2) 81.21 Glucose (74-106) mg/dL 92 Uric Acid (2.6-6.0) mg/dL 5.3 Calcium (8.5-10.1) mg/dL 9.2 Phosphorus (2.6-4.7) mg/dL 3.6 Magnesium (1.8-2.4) mg/dL 1.1 L Total Bilirubin (0.2-1.0) mg/dL 0.5 AST (15-37) U/L 23 ALT (14-59) U/L 21 Alkaline Phosphatase (46-116) U/L 50 Troponin I (<or=51) ng/L 7 NT-Pro-B Natriuret Pep (<300) pg/mL 93 Total Protein (6.4-8.2) g/dL 6.8 Albumin (3.4-5.0) g/dL 3.1 L Lipase (<78) U/L 29 Procalcitonin ng/mL < 0.10 TSH (0.36-3.74) uIU/mL 3.20 PFSH All Active Problems (Updated 02/28/25 @ 22:31 by Bay Chen) Pleural effusion (Acute) Advanced care planning/counseling discussion (Acute) Palliative care patient (Acute) Obesity (Chronic) Port-A-Cath in place (Acute) Stage IV adenocarcinoma of endometrium (Acute) Dx 2024: Large R pleural effusion and +retroperitoneal and pelvic lymph nodes. 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 Staging hysterectomy scheduled 12/10/24 Thickened endometrium (Acute) Postmenopausal bleeding (Acute) Nail dystrophy (Acute) Onychomycosis (Acute) Type 2 diabetes mellitus with peripheral neuropathy (Chronic) Peripheral neuropathy (Acute) Screening for colon cancer (Acute) Diabetes (Chronic) Hypertension (Chronic) Morbid obesity (Acute) Medical History Accessory skin tags Back pain Chronic back pain Depression Headache Hyperlipidemia Neoplasm of unspecified nature of bone, soft tissue, and skin (02/05/18) Ocular hypertension Seborrheic keratosis, inflamed Snoring (02/05/18) Surgical History History of cholecystectomy History of colonoscopy (~02/2022) History of tubal ligation Family History Father FH: prostate cancer Sister Cancer cervical Social History Smoking/Tobacco Use Status: Never Second Hand Exposure: No Smoking risk assessment performed?: Yes Alcohol Intake: former Drug use: Never Substance use type: does not use Household members: spouse Sexually active: Yes Current gender identity: female What is your relationship status?: Panel score (0-1 are the most socially isolated patients): 1 What type of physical activity do you participate in: none Seatbelt use: always Helmet use: Yes Do you feel safe at home: Yes Do you feel safe in your relationship?: Yes Female Reproductive History Menstrual Age of Menarche: 9 History History 4 Para 3 Hx # Term Pregnancies Multiple births Hx # Pregnancies Ectopic pregnancies AB induced Hx Number of Living Children AB spontaneous 1 Past Pregnancies Del. Date GA/Weeks # Preg Succ Route Wgt Sex Labor Lgth Anesthesia Location Prov Complic 08/29/87 37 No Yes vaginal 3316.894 g Female 12/21/89 40 Yes vaginal 3628.739 g Male 07/14/92 40 No Yes vaginal 3685.438 g Female
--- NOTE | 2025-02-28 17:30 | DI.CT_ITS ---
Exam(s) CT CHEST PE ABD PELVIS W EXAM: CT CHEST PE ABD PELVIS W CLINICAL HISTORY: tachy, SOB, active CA. TECHNIQUE: Imaging Protocol: Axial CT angiography was performed with multi- slice acquisition and multi-planar and/or 3D reconstructions. Computer aided detection (CAD) was utilized. CONTRAST MATERIAL: Intravenous: Omnipaque 350 Contrast volume:100 ml COMPARISON: US ABDOMEN ULTRASOUND from 06/09/2009 US US PELVIS TRANSVAGINAL from 10/08/2024 FINDINGS: CHEST: Pulmonary Arteries: No evidence of filling defects to suggest pulmonary emboli. Tracheobronchial tree: No bronchiectasis or mucus plugging. Mediastinum and Mery: No dominant adenopathy. Evaluation mildly limited by surrounding pleural fluid Pulmonary parenchyma: Evaluation is somewhat limited due to motion artifact. Diffuse bilateral ground-glass infiltrates. Compressive atelectasis of the right lower lobe. Pleura: Large partially loculated right pleural effusion causing some midline shift toward the left. No pneumothorax. Heart: The heart is notdilated. No coronary artery calcifications are seen. Mild calcification visible at the aortic valve. Aorta: Ascending aorta measures 4.5 cm. Descending aorta measures 2.3 cm. Bones: Unremarkable for age. No compression fracture. No visible lytic or blastic lesions. Tubes, Catheters, and Lines: Port in right upper chest wall. Soft tissues: Unremarkable. ABDOMEN and PELVIS: Liver: Normal size. Normal density. No suspicious measurable mass. Portal, Superior Mesenteric, and Splenic Veins: Unremarkable. Gallbladder and Biliary Tract: Cholecystectomy. No biliary dilatation. Pancreas: Normal density, no abnormal calcifications or inflammatory process. Spleen: Normal. Adrenals: No masses seen. Kidneys: Normal size, contour and axis. No radiodense stones. No obstructive uropathy. Simple renal cysts. No suspicious masses seen. Vasculature: Abdominal aorta non-dilated. Bowel: No obstruction or bowel wall thickening. Appendix is not visualized.. Peritoneal Cavity: No ascites, collection or mesenteric inflammatory response. Lymph Nodes: Mildly enlarged para-aortic lymph nodes measuring on the order of 13-15 millimeters. Enlarged iliac chain lymph nodes are also present. The largest node is on the left external iliac chain measuring 2.5 cm Soft Tissues: Unremarkable. Bladder: Symmetric distention, no gross wall thickening. 2.5 collection of rounded calcifications at superior aspect of bladder wall. It appears external to the bladder but abuts the wall. It may represent a bladder diverticulum with multiple calcifications or may be a diverticulum from adjacent sigmoid colon, however there are no other diverticula visible. It does not appear connected to the uterus or ovaries. No soft tissue components are visible. Reproductive Organs: Heterogeneous uterus consistent with the patient's history of uterine cancer. Both ovaries appear normal in size and appearance. No cyst or mass is identified. Bones: Unremarkable for age. No lytic or blastic lesions are identified.. IMPRESSION: 1. No evidence of pulmonary embolism. 2. Large right pleural effusion with compressive atelectasis and mediastinal shift. 3. Bilateral ground-glass opacities could represent expiratory changes and respiratory motion versus pneumonitis. 4. Heterogeneous uterus consistent with diagnosis of uterine CA. Enlarged para- aortic and iliac chain lymph nodes consistent with metastatic adenopathy. 5. Collection of calcifications at the superior bladder wall calcifications within colonic diverticula versus bladder diverticulum. The preliminary [facility] report was reviewed. RADIATION DOSE DELIVERED: Total DLP DATA REPOSITORY: All CT scans at this facility are submitted to the National Radiology Data Registry (NRDR) Dose Index Registry (DIR) with the [employer] ([employer]). RADIATION OPTIMIZATION: All CT scans at this facility use at least one of these dose optimization techniques: automated exposure control; mA and/or kV adjustment per patient size (includes targeted exams where dose is matched to clinical indication); or iterative reconstruction.
[2025-02-28 19:51] LABS: BE (Venous) 3 mmol/L (-2-3); HCO3 (Venous) 28 mmol/L (23-28); Lactate 1.5 mmol/L (<or=2.0); O2 Sat (Venous) 59 %; TCO2 (Venous) 26 mmol/L (24-29); pCO2 (Venous) 46 mmHg (41-51); pH (Venous) 7.39 (7.31-7.41); pO2 (Venous) 33 mmHg
[2025-02-28 19:53] LABS: Abs Immature Grans 0.02 10^3/uL (0.0-0.06); Absolute Basophil Count 0.01 10^3/uL (0.0-0.2); Absolute Eosinophil Count 0.03 10^3/uL (0.0-0.7); Absolute Lymphocyte Count 1.22 10^3/uL (1.2-3.4); Absolute Monocyte Count 0.24 10^3/uL (0.1-0.8); Absolute Neutrophil Count 2.45 10^3/uL (1.2-6.7); Basophils % 0.3 %; Eosinophils % 0.8 %; HCT 33.6 % (36.0-46.0); HGB 10.7 g/dL (11.2-15.7); Immature Grans % 0.5 %; Lymphocytes % 30.7 %; MCH 29.1 pg (27.0-33.0); MCHC 31.8 % (32.0-36.0); MCV 91 fL (80-95); MPV 9.8 fL (8.0-11.0); Neutrophils % 61.7 %; Platelet Count 155 10^3/uL (130-400); RBC 3.68 10^6/uL (3.93-5.22); RDW 19.2 % (11.7-14.6); RDW-SD 64.1 fL; WBC 3.97 10^3/uL (4.4-10.8)
[2025-02-28] MEDS: Omnipaque 350 MG/ML 100 ML BTL IJ (20:11)
[2025-02-28] MEDS: Normal Saline - Diluent 50 ML VIAL IJ (20:12)
[2025-02-28 20:21] LABS: ALT 21 U/L (14-59); AST 23 U/L (15-37); Albumin 3.1 g/dL (3.4-5.0); Alkaline Phosphatase 50 U/L (46-116); Anion Gap 7.5 mmol/L (3-11); BUN 14 mg/dL (7-18); Bilirubin, Total 0.5 mg/dL (0.2-1.0); CO2 29.5 mmol/L (21.0-32.0); CREATININE 0.8 mg/dL (0.55-1.02); Calcium 9.2 mg/dL (8.5-10.1); Chloride 104 mmol/L (98-107); Estimated GFR 81.21 (mL/min/1.73m2); Glucose 92 mg/dL (74-106); Lipase 29 U/L (<78); Magnesium 1.1 mg/dL (1.8-2.4); NT-proBNP 93 pg/mL (<300); Potassium 3.7 mmol/L (3.5-5.1); Sodium 141 mmol/L (136-145); Total Protein 6.8 g/dL (6.4-8.2); Troponin I 7 ng/L (<or=51)
[2025-02-28 20:22] LABS: PHOSPHORUS 3.6 mg/dL (2.6-4.7); Uric Acid 5.3 mg/dL (2.6-6.0)
[2025-02-28 20:24] LABS: Procalcitonin < 0.10 ng/mL
--- NOTE | 2025-02-28 20:51 | DI.VRAD_ITS ---
PROCEDURE INFORMATION: Exam: CTA Chest With Contrast Exam date and time: 02/28/2025 8:09 PM Age: 64 years old Clinical indication: Prior surgery; Surgery date: 1-6 months; Surgery type: Port; Tachy, SOB, active cancer. Patient has primary uterine cancer TECHNIQUE: Imaging protocol: Computed tomographic angiography of the chest with contrast. Exam focused on the arteries. 3D rendering (Not supervised by radiologist): MIP and/or 3D reconstructed images were created by the technologist. Radiation optimization: All CT scans at this facility use at least one of these dose optimization techniques: automated exposure control; mA and/or kV adjustment per patient size (includes targeted exams where dose is matched to clinical indication); or iterative reconstruction. Contrast material: [id number]; Contrast volume: 100 ml; Contrast route: INTRAVENOUS (IV); COMPARISON: US ABDOMEN LIMITED 08/29/2023 8:36 AM FINDINGS: Tubes, catheters and devices: Right chest wall port, satisfactory position. Pulmonary arteries: No pulmonary emboli. Aorta: 42 mm ascending aortic aneurysm. No rupture. Normal caliber of the descending aorta.. No aortic dissection. Lungs: Motion artifact in the lungs. Moderate multifocal right-sided airspace disease worst in the right lower lobe, pattern favoring compressive atelectasis over pneumonia. Scattered mild air trapping in the lungs. Pleural spaces: Moderate leftward cardiomediastinal shift due to the large right-sided pleural effusion. Large partially loculated right pleural effusion. No pneumothorax. Heart: No cardiomegaly. No pericardial effusion. Lymph nodes: No enlarged lymph nodes. Bones/joints: Chronic bony changes with no acute fracture. Soft tissues: Prominent subcutaneous fat. IMPRESSION: 1. Large partially loculated right pleural effusion. This causes moderate leftward cardiomediastinal shift. 2. Moderate multifocal right-sided airspace disease worst in the right lower lobe, pattern favoring compressive atelectasis over pneumonia. 3. Pulmonary air trapping, likely small airways disease. 4. Incidental findings as described. PROCEDURE INFORMATION: Exam: CT Abdomen And Pelvis With Contrast Exam date and time: 02/28/2025 8:09 PM Age: 64 years old Clinical indication: Prior surgery; Surgery date: 1-6 months; Surgery type: Port; Tachy, SOB, active cancer. Patient has primary uterine cancer TECHNIQUE: Imaging protocol: Computed tomography of the abdomen and pelvis with contrast. Radiation optimization: All CT scans at this facility use at least one of these dose optimization techniques: automated exposure control; mA and/or kV adjustment per patient size (includes targeted exams where dose is matched to clinical indication); or iterative reconstruction. Contrast material: [id number]; Contrast volume: 100 ml; Contrast route: INTRAVENOUS (IV); COMPARISON: US PELVIS TRANSVAGINAL 10/08/2024 12:03 PM FINDINGS: Liver: No hepatic masses. Gallbladder and biliary ducts: Cholecystectomy. Typical caliber of the CBD for a post cholecystectomy patient. Pancreas: No ductal dilation. No mass . Spleen: No splenomegaly or suspicious lesions. Adrenal glands: No suspicious mass. Kidneys and ureters: Benign-appearing renal cyst(s) and/or probable cyst(s). No renal masses or hydronephrosis bilaterally. Stomach and bowel: No obstruction. No mucosal thickening. Appendix: No evidence of appendicitis. Intraperitoneal space: No free air. No significant fluid collection. Vasculature: No abdominal aortic aneurysm. Lymph nodes: Mild multifocal retroperitoneal and moderate left iliac adenopathy likely metastatic given the history. Urinary bladder: No gross wall thickening. Reproductive: Coarsely calcified left adnexal lesion of about 3 cm. Very heterogeneous endometrium is consistent with the history of uterine malignancy. Bones/joints: Chronic bony changes with no acute fracture. Soft tissues: No suspicious lesions. IMPRESSION: 1. No acute findings. 2. Findings consistent with history of uterine malignancy with left iliac and retroperitoneal adenopathy likely metastatic. Additional findings as above. Dictated and Authenticated by: Laura Llamas MD. Orderin Yanci Calvillo MD
[2025-02-28] MEDS: MAGNESIUM SULFATE 2 GM/50 ML BAG IV_INF (21:02)
--- NOTE | 2025-02-28 22:28 | W.PM.HP.N ---
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 She also has lymph node involvement at the time of diagnosis. She is on chemotherapy but is having recurring loculated right pleural effusion which will need to be drained. This will be therapeutic. [place] radiology [place] [facility] [place] is [place] or at the first of the next week. Locally, did general surgery will be consulted for possible thoracentesis. Oxygen supplementation as needed. She is a full code. 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 She is hopeful for some response to chemotherapy. (3) Type 2 diabetes mellitus with peripheral neuropathy: Status: Chronic Assessment and plan: Hold outpatient medical therapy with glucometer measurements before meals and at bedtime and moderate sliding scale coverage while hospitalized. (4) Hypertension: Status: Chronic Assessment and plan: Continue outpatient medical therapy adjusting as needed. (5) Hyperlipidemia: Assessment and plan: Continue statin therapy. History of Present Illness History of Present Illness Chief Complaint: Increasing dizziness last 3 days. Narrative: This is a 64-year-old female patient who was diagnosed with endometrial adenocarcinoma which was metastatic at the time of diagnosis on October 17, 2024. She was having a CT scan in November 2024 when she was found to have a pleural effusion which was drained at [facility] She has ongoing chemotherapy and for the last 2 to 3 days she has had increasing dizziness with ambulation and shortness of breath. Reports to the ED for evaluation was found to have a loculated, large right pleural effusion causing leftward mediastinal shift with some atelectasis but no apparent infiltrates or pneumonia. Patient has had no fever or cough. She denies any peripheral edema. Surgery was consulted and will consider thoracentesis though they would prefer interventional radiology to see the patient at [facility] which will not happen over the weekend. If [facility] [place] over the weekend, they did discuss possible transfer as they are treating the patient. This is not emergent and the local surgical evaluate in the morning for possible local care. She remains a full code. Review of Systems Narrative: 13 point review of systems otherwise unrevealing or stable. PFSH All Active Problems (Updated 03/01/25 @ 01:05 by Bay Chen) Pleural effusion (Acute) Advanced care planning/counseling discussion (Acute) Palliative care patient (Acute) Obesity (Chronic) Port-A-Cath in place (Acute) Stage IV adenocarcinoma of endometrium (Chronic) Dx 2024: Large R pleural effusion and +retroperitoneal and pelvic lymph nodes. 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 Staging hysterectomy scheduled 12/10/24 Thickened endometrium (Acute) Postmenopausal bleeding (Acute) Nail dystrophy (Acute) Onychomycosis (Acute) Type 2 diabetes mellitus with peripheral neuropathy (Chronic) Peripheral neuropathy (Acute) Screening for colon cancer (Acute) Diabetes (Chronic) Hypertension (Chronic) Morbid obesity (Acute) Medical History Accessory skin tags Seborrheic keratosis, inflamed Back pain Headache Chronic back pain Ocular hypertension Hyperlipidemia Depression Snoring (02/05/18) Neoplasm of unspecified nature of bone, soft tissue, and skin (02/05/18) Surgical History History of colonoscopy (~02/2022) History of tubal ligation History of cholecystectomy Family History Father FH: prostate cancer Sister Cancer cervical Social History Smoking/Tobacco Use Status: Never Second Hand Exposure: No Smoking risk assessment performed?: Yes Alcohol Intake: former Drug use: Never Substance use type: does not use Household members: spouse Sexually active: Yes Current gender identity: female What is your relationship status?: Panel score (0-1 are the most socially isolated patients): 1 What type of physical activity do you participate in: none Seatbelt use: always Helmet use: Yes Do you feel safe at home: Yes Do you feel safe in your relationship?: Yes Female Reproductive History Menstrual Age of Menarche: 9 History History 4 Para 3 Hx # Term Pregnancies Multiple births Hx # Pregnancies Ectopic pregnancies AB induced Hx Number of Living Children AB spontaneous 1 Past Pregnancies Del. Date GA/Weeks # Preg Succ Route Wgt Sex Labor Lgth Anesthesia Location Prov Complic 12/26/87 37 No Yes vaginal 3316.894 g Female 12/21/89 40 Yes vaginal 3628.739 g Male 07/14/92 40 No Yes vaginal 3685.438 g Female Meds Allergies and Home Medications Allergies Allergy/AdvReac Type Severity Reaction Status Date / Time No Known Allergies Allergy Verified 02/28/25 17:06 Home Medications ?Medication ?Instructions ?Recorded ?Confirmed ?Type cholecalciferol (vitamin D3) 25 25 mcg PO DAILY 01/21/22 02/28/25 History mcg (1,000 unit) capsule insulin glargine 100 unit/mL (3 20 unit subcut QPM 01/21/22 02/28/25 History mL) subcutaneous pen (Lantus Solostar U-100 Insulin) metformin 500 mg tablet 1,000 mg PO BID 01/21/22 02/28/25 History multivitamin 1 tab PO DAILY 01/21/22 02/28/25 History omega-3 fatty acids 500 mg capsule 500 mg PO DAILY 01/21/22 02/28/25 History simvastatin 20 mg tablet 20 mg PO DAILY 01/21/22 02/28/25 History lisinopril 5 mg tablet 5 mg PO DAILY 01/27/22 02/28/25 History calcium carbonate (Antacid 500 mg PO DAILY 08/08/24 02/28/25 History (calcium carbonate)) cetirizine 5 mg tablet 5 mg PO DAILY PRN 12/10/24 02/28/25 History semaglutide 0.25 mg or 0.5 mg (2 0.25 mg subcut QWEEK 12/10/24 02/28/25 History mg/3 mL) subcutaneous pen injector (Ozempic) dexamethasone 4 mg tablet 4 mg PO BID PRN 01/07/25 02/28/25 History ondansetron 4 mg disintegrating 4 - 8 mg PO Q8H PRN 01/07/25 02/28/25 History tablet prochlorperazine maleate 10 mg 10 mg PO Q6H PRN 01/07/25 02/28/25 History tablet insulin glargine U-300 conc 300 20 unit subcut HS 02/28/25 02/28/25 History unit/mL (3 mL) subcutaneous pen (Toujeo Max U-300 SoloStar) lifitegrast 5 % eye drops in a 2 drp ophthalmic (eye) QAM AND QPM 02/28/25 02/28/25 History dropperette (Xiidra) Exam Narrative Exam Narrative: General: Patient is obese, she is wearing a scarf of her head with alopecia secondary to her chemotherapy, she is very talkative, alert and oriented x 3 and in no acute distress at rest. HEENT: Normocephalic, alopecia as mentioned, eyes with pupils equal and rest to light specially, extraocular movement intact and sclera anicteric. Oropharynx with moist oral mucosa and fair dentition. Neck: Supple without JVD. Back: Stooped posture without CVA tenderness. Lungs: Decreased aeration of the right hemithorax with some dullness to percussion, otherwise fair aeration with no focalizing rales or rhonchi. Breast: Exam deferred. Heart: Regular rate and rhythm with 3/6 systolic murmur over the apex. No appreciable gallop or rub. Abdomen: Obese contour, soft and nontender to palpation with no palpable hepatosplenomegaly. No guarding or rebound. Bowel sounds positive in all quadrants. Genitalia/rectal: Exam deferred. Extremities: Without clubbing, cyanosis or grossly pitting edema. Patient does have obesity over lower extremities. Fair capillary refill. Skin: Pale, warm and dry. No bruising. Neuro: Cranial nerves II through XII grossly intact, no focalizing motor deficits and no tremor. Psych: Normal affect and mood. No normal thought processes. Slightly pressured speech. Remote and recent memory intact. Results Imaging Imaging Studies: Exam: CTA Chest With Contrast Exam date and time: 02/28/2025 8:09 PM Age: 64 years old Clinical indication: Prior surgery; Surgery date: 1-6 months; Surgery type: Port; Tachy, SOB, active cancer. Patient has primary uterine cancer TECHNIQUE: Imaging protocol: Computed tomographic angiography of the chest with contrast. Exam focused on the arteries. 3D rendering (Not supervised by radiologist): MIP and/or 3D reconstructed images were created by the technologist. Radiation optimization: All CT scans at this facility use at least one of these dose optimization techniques: automated exposure control; mA and/or kV adjustment per patient size (includes targeted exams where dose is matched to clinical indication); or iterative reconstruction. Contrast material: [id number]; Contrast volume: 100 ml; Contrast route: INTRAVENOUS (IV); COMPARISON: US ABDOMEN LIMITED 08/29/2023 8:36 AM FINDINGS: Tubes, catheters and devices: Right chest wall port, satisfactory position. Pulmonary arteries: No pulmonary emboli. Aorta: 42 mm ascending aortic aneurysm. No rupture. Normal caliber of the descending aorta.. No aortic dissection. Lungs: Motion artifact in the lungs. Moderate multifocal right-sided airspace disease worst in the right lower lobe, pattern favoring compressive atelectasis over pneumonia. Scattered mild air trapping in the lungs. Pleural spaces: Moderate leftward cardiomediastinal shift due to the large right-sided pleural effusion. Large partially loculated right pleural effusion. No pneumothorax. Heart: No cardiomegaly. No pericardial effusion. Lymph nodes: No enlarged lymph nodes. Bones/joints: Chronic bony changes with no acute fracture. Soft tissues: Prominent subcutaneous fat. IMPRESSION: 1. Large partially loculated right pleural effusion. This causes moderate leftward cardiomediastinal shift. 2. Moderate multifocal right-sided airspace disease worst in the right lower lobe, pattern favoring compressive atelectasis over pneumonia. 3. Pulmonary air trapping, likely small airways disease. 4. Incidental findings as described. PROCEDURE INFORMATION: Exam: CT Abdomen And Pelvis With Contrast Exam date and time: 02/28/2025 8:09 PM Age: 64 years old Clinical indication: Prior surgery; Surgery date: 1-6 months; Surgery type: Port; Tachy, SOB, active cancer. Patient has primary uterine cancer TECHNIQUE: Imaging protocol: Computed tomography of the abdomen and pelvis with contrast. Radiation optimization: All CT scans at this facility use at least one of these dose optimization techniques: automated exposure control; mA and/or kV adjustment per patient size (includes targeted exams where dose is matched to clinical indication); or iterative reconstruction. Contrast material: [id number]; Contrast volume: 100 ml; Contrast route: INTRAVENOUS (IV); COMPARISON: US PELVIS TRANSVAGINAL 10/08/2024 12:03 PM FINDINGS: Liver: No hepatic masses. Gallbladder and biliary ducts: Cholecystectomy. Typical caliber of the CBD for a post cholecystectomy patient. Pancreas: No ductal dilation. No mass . Spleen: No splenomegaly or suspicious lesions. Adrenal glands: No suspicious mass. Kidneys and ureters: Benign-appearing renal cyst(s) and/or probable cyst(s). No renal masses or hydronephrosis bilaterally. Stomach and bowel: No obstruction. No mucosal thickening. Appendix: No evidence of appendicitis. Intraperitoneal space: No free air. No significant fluid collection. Vasculature: No abdominal aortic aneurysm. Lymph nodes: Mild multifocal retroperitoneal and moderate left iliac adenopathy likely metastatic given the history. Urinary bladder: No gross wall thickening. Reproductive: Coarsely calcified left adnexal lesion of about 3 cm. Very heterogeneous endometrium is consistent with the history of uterine malignancy. Bones/joints: Chronic bony changes with no acute fracture. Soft tissues: No suspicious lesions. IMPRESSION: 1. No acute findings. 2. Findings consistent with history of uterine malignancy with left iliac and retroperitoneal adenopathy likely metastatic. Additional findings as above. Labs 02/28/25 19:39 02/28/25 19:39 Labs: Laboratory Results - last 24 hr 02/28/25 19:39 WBC 3.97 L RBC 3.68 L Hgb 10.7 L Hct 33.6 L MCV 91 MCH 29.1 MCHC 31.8 L RDW 19.2 H Plt Count 155 MPV 9.8 Immature Gran % 0.5 Neutrophils % 61.7 Lymphocytes % 30.7 Monocytes % 6.0 Eosinophils % 0.8 Basophils % 0.3 Nucleated RBC % 0.0 Absolute Neutrophils 2.45 Absolute Lymphocytes 1.22 Absolute Monocytes 0.24 Absolute Eosinophils 0.03 Absolute Basophils 0.01 VBG pH 7.39 VBG pCO2 46 VBG pO2 33 VBG HCO3 28 VBG Total CO2 26 VBG O2 Saturation 59 VBG Base Excess 3 VBG Lactate 1.5 Sodium 141 Potassium 3.7 Chloride 104 Carbon Dioxide 29.5 Anion Gap 7.5 BUN 14 Creatinine 0.8 Est GFR (CKD-EPI 2020) 81.21 Glucose 92 Uric Acid 5.3 Calcium 9.2 Phosphorus 3.6 Magnesium 1.1 L Total Bilirubin 0.5 AST 23 ALT 21 Alkaline Phosphatase 50 Troponin I 7 NT-Pro-B Natriuret Pep 93 Total Protein 6.8 Albumin 3.1 L Lipase 29 Procalcitonin < 0.10 TSH 3.20 Last Vital Signs Temp 36.7 C 02/28/25 17:01 Pulse 102 H 02/28/25 21:06 Resp 18 02/28/25 21:06 BP 124/73 02/28/25 21:06 Pulse Ox 93 02/28/25 21:06 Time Spent Time spent with Patient: >75 minutes Time was spent: preparing to see the patient(eg.review tests), obtaining and/or reviewing separately otained hiistory, ordering medications,tests, procedures, referring, communicating with other health morning caregiver, indepentently interpreting results, counseling the patient and care coordination
[2025-02-28 23:45] LABS: Bilirubin Negative (Negative); Blood Negative (Negative); Clarity Clear (Clear); Glucose Negative (Negative); Ketones Negative (Negative); Leukocyte Esterase Negative (Negative); Nitrite Negative (Negative); Specific Gravity 1.015 (1.005-1.025); Urobilinogen 0.2 mg/dL (Up to 0.2); pH 5.5 (5-8)
[2025-03-01] VITALS (53 sets, daily range): BP systolic 106–138; BP diastolic 59–79; PULSE 89–128; RESP 17–30; TEMP 36.1–36.5; O2SAT 86–98; BMI 34.3
--- NOTE | 2025-03-01 | DI.RAD_ITS ---
Exam(s) XR PORTABLE CHEST AP EXAM: XR PORTABLE CHEST AP CLINICAL HISTORY: new pleurx catheter TECHNIQUE: 2D digital imaging was performed. COMPARISON: CT CT CHEST PE ABD PELVIS W from 02/28/2025 FINDINGS: A central venous catheter has been inserted via the internal jugular vein. The tip is somewhat difficult to visualize secondary to superimposition over the spine, however it appears to projects in the region of the right atrium LUNGS: Increased densities in the right lower lobe consistent with previously noted compressive atelectasis. The pleural effusion appears to have decreased from the previous exam. Clinical correlation recommended. HEART: Normal size. AORTA: Normal diameter. BONES: Unremarkable for age. Soft tissues: Unremarkable. IMPRESSION: Interval placement right-sided poor with tip in right atrium. No pneumothorax. Decreased size of right pleural effusion. DATA REPOSITORY: RADIATION DOSE DELIVERED:
--- NOTE | 2025-03-01 01:47 | NUR.NOTE ---
PT provided with inpatient bed while she stays in ED overnight Nursing Note:
--- NOTE | 2025-03-01 08:19 | W.SURGCON ---
Date of service: 03/01/25 Time of Service: 08:19 Assessment and Plan Assessment and plan (1) Pleural effusion: Status: Acute Assessment and plan: Jyoti has metastatic endometrial cancer with a malignant right-sided pleural effusion. I do think she would benefit from pleural drainage. I did perform a limited ultrasound at the bedside that demonstrates a massive pleural effusion, that is clearly accessible. These images were not saved. I recommended at the very least thoracentesis, but I also suggested insertion of a Pleurx catheter, as this effusion will almost certainly recur. Jyoti would like to discuss this with her prior to making any decisions. For right now she will stay n.p.o., and I will revisit her within the next hour or 2 and adjust our plan accordingly. History of Present Illness History of Present Illness Chief Complaint: Lightheadedness and exertional dyspnea Narrative: Jyoti is 64 years old. 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 This has been drained in the past, with favorable improvement of her symptoms, which largely are exertional dyspnea. Unfortunately, the effusion has recurred, and this is certainly contributing to some of her symptoms. During the course of our conversation, she has conversational dyspnea. She came to the emergency department, and underwent a CT scan of the chest abdomen and pelvis that demonstrates a massive right-sided pleural effusion with some evidence of mediastinal shift away from the effusion Review of Systems Constitutional Constitutional: Reports fatigue, Denies fever(s), Reports lethargy and Reports poor appetite Eyes Eyes: Reports system reviewed and no additional complaints, except as documented ENT Ears, Nose, Mouth, and Throat: Reports system reviewed and no additional complaints, except as documented Cardiovascular Cardiovascular: Denies chest pain and Reports dyspnea on exertion Respiratory Respiratory: Denies chest congestion, Reports cough, Denies pain on inspiration and Reports dyspnea on exertion Endocrine Endocrine: Reports fatigue Hematologic/Lymphatic Hematologic/Lymphatic: Reports easy bruising PFSH All Active Problems (Updated 03/01/25 @ 01:05 by Bay Chen) Pleural effusion (Acute) Advanced care planning/counseling discussion (Acute) Palliative care patient (Acute) Obesity (Chronic) Port-A-Cath in place (Acute) Stage IV adenocarcinoma of endometrium (Chronic) Dx 2024: Large R pleural effusion and +retroperitoneal and pelvic lymph nodes. 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 Staging hysterectomy scheduled 12/10/24 Thickened endometrium (Acute) Postmenopausal bleeding (Acute) Nail dystrophy (Acute) Onychomycosis (Acute) Type 2 diabetes mellitus with peripheral neuropathy (Chronic) Peripheral neuropathy (Acute) Screening for colon cancer (Acute) Diabetes (Chronic) Hypertension (Chronic) Morbid obesity (Acute) Medical History Accessory skin tags Seborrheic keratosis, inflamed Back pain Headache Chronic back pain Ocular hypertension Hyperlipidemia Depression Snoring (02/05/18) Neoplasm of unspecified nature of bone, soft tissue, and skin (02/05/18) Surgical History History of colonoscopy (~02/2022) History of tubal ligation History of cholecystectomy Family History Father FH: prostate cancer Sister Cancer cervical Social History Smoking/Tobacco Use Status: Never Second Hand Exposure: No Smoking risk assessment performed?: Yes Alcohol Intake: former Drug use: Never Substance use type: does not use Household members: spouse Sexually active: Yes Current gender identity: female What is your relationship status?: Panel score (0-1 are the most socially isolated patients): 1 What type of physical activity do you participate in: none Seatbelt use: always Helmet use: Yes Do you feel safe at home: Yes Do you feel safe in your relationship?: Yes Female Reproductive History Menstrual Age of Menarche: 9 History History 4 Para 3 Hx # Term Pregnancies Multiple births Hx # Pregnancies Ectopic pregnancies AB induced Hx Number of Living Children AB spontaneous 1 Past Pregnancies Del. Date GA/Weeks # Preg Succ Route Wgt Sex Labor Lgth Anesthesia Location Prov Complic 08/29/87 37 No Yes vaginal 7 lb 5 oz Female 12/21/89 40 Yes vaginal 8 lb Male 07/14/92 40 No Yes vaginal 8 lb 2 oz Female Exam Const General: cooperative and no acute distress Orientation: alert, awake and oriented x3 Neck Other: No appreciable jugular venous distention Resp Effort & Inspection: no tracheal deviation and no use of accessory muscles Auscultation: diminished lung sounds (Nearly absent on the right) and no wheezes Percussion: dullness Results Last Vital Signs Temp 98.1 F 02/28/25 17:01 Pulse 95 H 03/01/25 06:20 Resp 20 03/01/25 06:20 BP 138/69 03/01/25 06:56 Pulse Ox 89 L 03/01/25 06:20 Labs 02/28/25 19:39 02/28/25 19:39 Labs: Laboratory Results - last 24 hr 02/28/25 02/28/25 19:39 23:17 WBC 3.97 L RBC 3.68 L Hgb 10.7 L Hct 33.6 L MCV 91 MCH 29.1 MCHC 31.8 L RDW 19.2 H Plt Count 155 MPV 9.8 Immature Gran % 0.5 Neutrophils % 61.7 Lymphocytes % 30.7 Monocytes % 6.0 Eosinophils % 0.8 Basophils % 0.3 Nucleated RBC % 0.0 Absolute Neutrophils 2.45 Absolute Lymphocytes 1.22 Absolute Monocytes 0.24 Absolute Eosinophils 0.03 Absolute Basophils 0.01 VBG pH 7.39 VBG pCO2 46 VBG pO2 33 VBG HCO3 28 VBG Total CO2 26 VBG O2 Saturation 59 VBG Base Excess 3 VBG Lactate 1.5 Sodium 141 Potassium 3.7 Chloride 104 Carbon Dioxide 29.5 Anion Gap 7.5 BUN 14 Creatinine 0.8 Est GFR (CKD-EPI 2020) 81.21 Glucose 92 Uric Acid 5.3 Calcium 9.2 Phosphorus 3.6 Magnesium 1.1 L Total Bilirubin 0.5 AST 23 ALT 21 Alkaline Phosphatase 50 Troponin I 7 NT-Pro-B Natriuret Pep 93 Total Protein 6.8 Albumin 3.1 L Lipase 29 Procalcitonin < 0.10 TSH 3.20 Urine Color Yellow Urine Clarity Clear Urine pH 5.5 Ur Specific [place] 1.015 Urine Protein Negative Urine Ketones Negative Urine Blood Negative Urine Nitrite Negative Urine Bilirubin Negative Urine Urobilinogen 0.2 Ur Leukocyte Esterase Negative Urine Glucose Negative Imaging CT scan - chest: report reviewed and image reviewed
--- NOTE | 2025-03-01 08:57 | W.EDPROG ---
Date of service: 03/01/25 Time of Service: 08:57 Medical Decision Making Patient was admitted to surgery during the late afternoon yesterday. However because of bed availability the patient has been held in the ED until a bed opens up. Patient is a candidate for surgical procedure, Dr. Springer discussed the case with myself and at this time after contacting the nursing phosphatic fertilizer supervisor there still is no bed availability on the floor or in the ICU. Patient does need surgical management. Patient will be brought to the OR for surgical management, and then because there is no bed upstairs and we are still holding, the ER is functioning as the transition higher level of care. Patient will be brought back to the ER not as an ED patient but as an admitted floor patient being held in the ED under the care of the admitting surgical physician until a bed becomes available upstairs. This decision was made through shared decision making process with myself and Dr. Springer. We are happy to help and assist in any way needed here in the ED in the meantime due to the bed crisis. Discharge Plan Disposition Patient Disposition: Admit to [facility] Condition: Stable Discharge Details Clinical Impression: Pleural effusion Admit Date/Time: 02/28/25 22:38 Admit Provider: Bay Chen Attending Provider: Bay Chen Primary Care Provider: JAYDA AGUILERA ED Provider: Rajinder Pete
--- NOTE | 2025-03-01 09:35 | INITIAL_ITS ---
Date of service: 03/01/25 Time of Service: 09:35 Care Management Initial Assmt Initial Assessment Reason for Hospitalization: dizziness, PE Functional Status/Living Situation Patient Presentation: Christina was sitting up in her bed when CM met with her. She was pleasant and engaged well in conversation. She reported that she had been in the ED for an extended time, waiting for a bed to open on M/S; she went to the OR this morning prior to coming to M/S to have a Pleurx catheter placed. She stated that per MD, she will remain overnight, and will likely discharge home tomorrow. Christina reported that she and her , Mil, live in [place] together. They have three children; their daughter Apolonia lives in [place], [place]. 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 She stated that she hasn't been driving a lot due to her recent dizziness, but is otherwise still fairly independent. She is receiving cancer treatment at the [facility], and also sees Palliative care in the same building. CM will continue to follow. Town of Residence: [place] Resides with: Spouse (Mil) Significant Other/Family: Out of area Natural Supports: , Mil two daughters, one in [place], [place], and one in [place], [place]; son, Jesse in [place], [place] Employment Status: Retired Instrumental Activities of Daily Living (ADLs): Independent Medications Medication Management: No Issues/Barriers identified Advance Directives Advance Directives: Do you have an Advance Directive: N , 14:08 AD On File at [facility]: N 02/28/13, 14:08 Date Asked 02/28/25 02/28/25, 16:52 AD Date Reviewed COLST On File at [facility] COLST Date Scanned Code Status Resuscitation Status Full Code Insurance Coverage/Financial Issues Insurance: [facility] ([facility]) Care Team Visit Care Team Role Provider Type Tawny Mendoza NP NURSE PRACTITIONER JAYDA AGUILERA NP Primary Care Provider [facility] STAFF PHYSICIAN Clayton Springer MD Other Providers [facility] STAFF PHYSICIAN LAURA Beck Emergency Provider [employer] Bay Chen Admit Provider NON-[facility] STAFF PHYSICIAN Attending Provider Discharge Potential Discharge Needs: PCP F/U Appt Anticipated Barriers to Discharge: None Identified Patient/Family Education Needs: Review discharge instructions, discuss Ask Me Three Transportation: Private vehicle Plan: Anticipate Jyoti will return home once medically cleared. Her will drive her home via private vehicle. She will follow up with her PCP and discharge plan of care. CM will continue to follow. Social Determinants of Health Screening Will the Patient Participate in the Screening?: Declined to provide PFSH All Active Problems (Updated 03/01/25 @ 01:05 by Bay Chen) Pleural effusion (Acute) Advanced care planning/counseling discussion (Acute) Palliative care patient (Acute) Obesity (Chronic) Port-A-Cath in place (Acute) Stage IV adenocarcinoma of endometrium (Chronic) Dx 2024: Large R pleural effusion and +retroperitoneal and pelvic lymph nodes. 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 Staging hysterectomy scheduled 12/10/24 Thickened endometrium (Acute) Postmenopausal bleeding (Acute) Nail dystrophy (Acute) Onychomycosis (Acute) Type 2 diabetes mellitus with peripheral neuropathy (Chronic) Peripheral neuropathy (Acute) Screening for colon cancer (Acute) Diabetes (Chronic) Hypertension (Chronic) Morbid obesity (Acute) Medical History Accessory skin tags Seborrheic keratosis, inflamed Back pain Headache Chronic back pain Ocular hypertension Hyperlipidemia Depression Snoring (02/05/18) Neoplasm of unspecified nature of bone, soft tissue, and skin (02/05/18) Surgical History History of colonoscopy (~02/2022) History of tubal ligation History of cholecystectomy Family History Father FH: prostate cancer Sister Cancer cervical Social History Smoking/Tobacco Use Status: Never Second Hand Exposure: No Smoking risk assessment performed?: Yes Alcohol Intake: former Drug use: Never Substance use type: does not use Household members: spouse Housing: house Sexually active: Yes Current gender identity: female What is your relationship status?: Panel score (0-1 are the most socially isolated patients): 1 What type of physical activity do you participate in: none Seatbelt use: always Helmet use: Yes Do you feel safe at home: Yes Do you feel safe in your relationship?: Yes Female Reproductive History Menstrual Age of Menarche: 9 History History 4 Para 3 Hx # Term Pregnancies Multiple births Hx # Pregnancies Ectopic pregnancies AB induced Hx Number of Living Children AB spontaneous 1 Past Pregnancies Del. Date GA/Weeks # Preg Succ Route Wgt Sex Labor Lgth Anesth esia Location Prov Complic 08/29/87 37 No Yes vaginal 3316.894 g Female 12/21/89 40 Yes vaginal 3628.739 g Male 07/14/92 40 No Yes vaginal 3685.438 g Female
--- NOTE | 2025-03-01 10:21 | W.ANESPRE ---
General Info Date of Service Date Performed: 03/01/25 Height: 5 ft 4 in Weight: 90.718 kg Body Mass Index (BMI): 34.3 Meds Allergies and Home Medications Allergies Allergy/AdvReac Type Severity Reaction Status Date / Time No Known Allergies Allergy Verified 02/28/25 17:06 Home Medication ?Medication ?Instructions ?Recorded cholecalciferol (vitamin D3) 25 25 mcg PO DAILY 01/21/22 mcg (1,000 unit) capsule insulin glargine 100 unit/mL (3 20 unit subcut QPM 01/21/22 mL) subcutaneous pen (Lantus Solostar U-100 Insulin) metformin 500 mg tablet 1,000 mg PO BID 01/21/22 multivitamin 1 tab PO DAILY 01/21/22 omega-3 fatty acids 500 mg capsule 500 mg PO DAILY 01/21/22 simvastatin 20 mg tablet 20 mg PO DAILY 01/21/22 lisinopril 5 mg tablet 5 mg PO DAILY 01/27/22 calcium carbonate (Antacid 500 mg PO DAILY 08/08/24 (calcium carbonate)) cetirizine 5 mg tablet 5 mg PO DAILY PRN 12/10/24 semaglutide 0.25 mg or 0.5 mg (2 0.25 mg subcut QWEEK 12/10/24 mg/3 mL) subcutaneous pen injector (Ozempic) dexamethasone 4 mg tablet 4 mg PO BID PRN 01/07/25 ondansetron 4 mg disintegrating 4 - 8 mg PO Q8H PRN 01/07/25 tablet prochlorperazine maleate 10 mg 10 mg PO Q6H PRN 01/07/25 tablet insulin glargine U-300 conc 300 20 unit subcut HS 02/28/25 unit/mL (3 mL) subcutaneous pen (Toujeo Max U-300 SoloStar) lifitegrast 5 % eye drops in a 2 drp ophthalmic (eye) QAM AND QPM 02/28/25 dropperette (Xiidra) Current Visit Medications: Current Medications Generic Name Dose Route Start Last Admin Trade Name Freq PRN Reason Stop Dose Admin Iohexol 100 ml 02/28/25 20:15 02/28/25 20:11 Omnipaque 350 Mg/Ml 100 Ml Btl IJ 03/30/25 23:59 100 ml DIRECTED SILVIANO Administration Sodium Chloride 50 ml 02/28/25 20:15 02/28/25 20:12 Normal Saline - Diluent 50 Ml Vial IJ 50 ml .FOR DI USE SILVIANO Administration PFSH Active Problems Active Problems: Problem Status Onset Code Pleural effusion Acute J90 Advanced care planning/counseling discussion Acute Z71.89 Palliative care patient Acute Z51.5 Obesity Chronic E66.9 Port-A-Cath in place Acute Z95.828 Stage IV adenocarcinoma of endometrium Chronic C54.1 Serous carcinoma of body of uterus Acute C54.9 Thickened endometrium Acute R93.89 Postmenopausal bleeding Acute N95.0 Nail dystrophy Acute L60.3 Onychomycosis Acute B35.1 Type 2 diabetes mellitus with peripheral neuropathy Chronic E11.42 Peripheral neuropathy Acute G62.9 Screening for colon cancer Acute Z12.11 Diabetes Chronic E11.9 Hypertension Chronic I10 Morbid obesity Acute E66.01 Medical History Medical History Accessory skin tags Seborrheic keratosis, inflamed Back pain Headache Chronic back pain Ocular hypertension Hyperlipidemia Depression Snoring (02/05/18) Neoplasm of unspecified nature of bone, soft tissue, and skin (02/05/18) Medical History Comments:: Patient has chronic allergies w/ runny nose. Surgical History Surgical History History of colonoscopy (~02/2022) History of tubal ligation History of cholecystectomy Tobacco Smoking/Tobacco Use Status: Never Passive smoking exposure: No Second hand exposure: No Alcohol Alcohol Intake: former Substance Use Substance use: Never Substance use type: does not use Prental History History 4 Para 3 Hx # Term Pregnancies Multiple births Hx # Pregnancies Ectopic pregnancies AB induced Hx Number of Living Children AB spontaneous 1 Past Pregnancies Del. Date GA/Weeks # Preg Succ Route Wgt Sex Labor Lgth Anesthesia Location Prov Complic 08/29/87 37 No Yes vaginal 3316.894 g Female 12/21/89 40 Yes vaginal 3628.739 g Male 07/14/92 40 No Yes vaginal 3685.438 g Female Vital Signs and Lab Results Vital Signs Most Recent Vital Signs in EMR: Most Recent Vital Signs Temp Pulse Resp BP Pulse Ox 36.7 C 93 H 20 138/69 89 L 02/28/25 17:01 03/01/25 06:55 03/01/25 06:20 03/01/25 06:56 03/01/25 06:20 Point of Care Results Point of Care Results: Finger Stick Blood Glucose 102 03/01/25 09:01 Lab Results 02/28/25 19:39 02/28/25 19:39 Complete Blood Count: WBC, (4.4-10.8) 3.97 10^3/uL L 02/28/25, 19:39 RBC, (3.93-5.22) 3.68 10^6/uL L 02/28/25, 19:39 Hgb, (11.2-15.7) 10.7 g/dL L 02/28/25, 19:39 Hct, (36.0-46.0) 33.6 % L 02/28/25, 19:39 Plt Count, (130-400) 155 10^3/uL 02/28/25, 19:39 VBG Lactate, (<or=2.0) 1.5 mmol/L 02/28/25, 19:39 Complete Metabolic Panel: Sodium, (136-145) 141 mmol/L 02/28/25, 19:39 Potassium, (3.5-5.1) 3.7 mmol/L 02/28/25, 19:39 Chloride, (98-107) 104 mmol/L 02/28/25, 19:39 Carbon Dioxide, (21.0-32.0) 29.5 mmol/L 02/28/25, 19:39 BUN, (7-18) 14 mg/dL 02/28/25, 19:39 Creatinine, (0.55-1.02) 0.8 mg/dL 02/28/25, 19:39 Est GFR (CKD-EPI 2020), (mL/min/1.73m2) 81.21 02/28/25, 19:39 Magnesium, (1.8-2.4) 1.1 mg/dL L 02/28/25, 19:39 Calcium, (8.5-10.1) 9.2 mg/dL 02/28/25, 19:39 Albumin, (3.4-5.0) 3.1 g/dL L 02/28/25, 19:39 Glucose, (74-106) 92 mg/dL 02/28/25, 19:39 Liver Function Panel: ALT, (14-59) 21 U/L 02/28/25, 19:39 AST, (15-37) 23 U/L 02/28/25, 19:39 Cardiac Panel: Troponin I, (<or=51) 7 ng/L 02/28/25 NT-Pro-B Natriuret Pep, (<300) 93 pg/mL 02/28/25 Venous Blood Gas: VBG pH, (7.31-7.41) 7.39 02/28/25, 19:39 VBG pO2 33 mmHg 02/28/25, 19:39 VBG pCO2, (41-51) 46 mmHg 02/28/25, :39 VBG O2 Saturation 59 % 02/28/25, :39 VBG HCO3, (23-28) 28 mmol/L 02/28/25, 19:39 VBG Base Excess, (-2-3) 3 mmol/L 02/28/25, :39 VBG Total CO2, (24-29) 26 mmol/L 02/28/25, :39 Pancreas Panel: Lipase, (<78) 29 U/L 02/28/25, 19:39 Thyroid Panel: TSH, (0.36-3.74) 3.20 uIU/mL 02/28/25, 19:39 Thyroxine (T4), (4.7-13.3) 10.3 ug/dL 02/05/25, 07:35 Imaging and Studies Imaging and Studies Study information below may be from another EMR and interpreted by another provider. Please see original notes in EMR for more complete details. EKG Summary: 02/28/25: Exam: Resting ECG Reason for Exam: dizziness Patient Location: E HR:105 bpm ECG Measurements Heart Rate 105 AXIS SD 147 P 42 QRSd 80 QRS -26 QT 330 T28 QTc 436 Conclusion Sinus tachycardia 105 normal axis no stemi Anesthesia Assessment and Plan Anesthesia History Personal History: No History of Anesthesia Complications Family History: No Family History of Anesthesia Complications Exercise Tolerance Exercise Tolerance: Metabolic Equivalents>4 Pertinent Negatives Pertinent Negatives: No Major Cardiovascular Symptoms or Complaints and No Major Pulmonary Symptoms or Complaints Cardiac & Pulmonary Exam Cardiac Exam: Normal S1/S2 Heart Sounds Pulmonary Exam: Clear Bilateral Breath Sounds Implantable Cardiac Device Does patient have a Pacemaker or an ICD?: No Airway Exam Known Difficult Airway: No Mallampati Class: 3 Mouth Opening: Narrow (< 3cm) Thyromental Distance: Greater than 3 cm Neck Range of Motion: Full ROM Neck Circumference: Normal Teeth Condition: Normal Dentition ASA Classification ASA Score: ASA 4 Emergency Case?: Yes NPO Status NPO Status: Full Stomach (Patient reports she took half a dose of Ozempic yesterday.) Anesthesia Plan Resuscitation Status: Full Code Anesthesia Technique: MAC Anesthesia Airway Planned: Natural Airway Monitors Used: Standard Monitors Preoperative Comments:: Plan for Dr. Springer to start procedure as LA, and will assist if indicated. Plan to avoid GA/ETT if possible and only provide MAC anesthesia given Ozempic status.
[2025-03-01] MEDS: ceFAZolin 2 GM/50 ML BAG IVPB (11:00)
--- NOTE | 2025-03-01 11:46 | ROE_ITS ---
Operative Note Operative Note PRE-OP DIAGNOSIS: Right-sided malignant pleural effusion POST-OP DIAGNOSIS: same PROCEDURE: Insertion of right sided Pleurx catheter SURGEON: Clayton Springer ANESTHESIA TYPE: Local By Surgeon Refer to Anesthesia Record ESTIMATED BLOOD LOSS: 5 PATHOLOGY: none sent COMPLICATIONS: None Patient was transported to: other (Patient boarding in the emergency department) Patient's condition: stable Implants: Pleurx catheter system Indications: Jyoti is a 64-year-old woman with a symptomatic recurrent right-sided pleural effusion. Findings: Simple appearing right-sided malignant pleural effusion Procedure Description: I explained the procedure of a Pleurx catheter insertion tomorrow and explained the risks and the benefits. She was able to provide informed consent. We moved her back to the operating room, she was left on her hospital stretcher. A few moments were taken to make sure that she was padded and supported appropriately. The right breast was taped out of the way. I performed a limited ultrasound of the right hemithorax confirming the presence of a large right-sided pleural effusion. These images were not saved. I marked the skin at the appropriate locations. I then prepped and draped the skin. I anesthetized the access site, as well as the tunneling site for the catheter. Then made a small skin incision, and directly entered the pleural space over the rib while aspirating. Thin straw-colored effusion was withdrawn, and the needle was left in place. The guidewire was advanced into the pleural space. I gently enlarged the insertion site, then made a small incision at the skin insertion site. I then delivered the Pleurx catheter through the insertion site up to the access site using the tunneling device according to the cash management coordinator's instructions until the Pleurx cuff was appropriately located in the subcutaneous space. The access site was then dilated, and the introducer was advanced over the guidewire, which was subsequently removed. The catheter was advanced through the peel-away introducer and gently delivered into the pleural space. The peel-away introducer was completely removed, and the catheter was gently palpated to ensure that it was appropriately oriented without any kinking and deep enough within the subcutaneous space for protection. A total of 1500 mL of effusion was drained. Jyoti did experience a little bit of coughing and mild chest discomfort with pulmonary reexpansion, so drainage was discontinued at that point. The access site was then closed with a interrupted Vicryl suture. The catheter was affixed to the skin with silk suture. The padded dressing, and occlusive dressing was then applied. Jyoti was transferred back to her hospital room. Date of Procedure: 03/01/25
--- NOTE | 2025-03-01 11:47 | NUR.NOTE ---
Patient returns from the OR s/p chest tube placement under local anesthesia. Patient comfortable at the moment. VSS. Report received from OR staff.
--- NOTE | 2025-03-01 12:35 | W.PM.PROGNOT ---
Date of Service Date of service: 03/01/25 Time of Service: 12:35 Assessment and Plan Assessment and plan (1) Pleural effusion: Status: Acute Assessment and plan: Status post Pleurx catheter placement by Dr. 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 She is hopeful for some response to chemotherapy. (3) Type 2 diabetes mellitus with peripheral neuropathy: Status: Chronic Assessment and plan: Hold outpatient medical therapy with glucometer measurements before meals and at bedtime and moderate sliding scale coverage while hospitalized. (4) Hypertension: Status: Chronic Assessment and plan: Continue outpatient medical therapy adjusting as needed. (5) Hyperlipidemia: Assessment and plan: Continue statin therapy. discussed with DR Lala Subjective Subjective Patient reports: no new complaints, tolerating liquids well and afebrile; denies shortness of breath Interval history since last seen: Pleurx catheter placed by Dr. Springer patient tolerated well Reports fatigue as she has not slept significantly since her arrival here last evening Exam Narrative Exam Narrative: Chronically ill-appearing female older than stated age head is atraumatic eyes nonicteric noninjected oral mucosas dry neck full range of motion cardiovascular regular rate and rhythm respirations even unlabored expiratory wheezing 0 Pleurx catheter intact right chest wall no crepitus dressing clean dry and intact no drainage abdomen round nontender moves all extremities equally neurologic she is awake alert oriented no focal deficits psychiatric appropriate mood and affect Objective Last Vital Signs Temp 36.7 C 02/28/25 17:01 Pulse 89 03/01/25 12:10 Resp 18 03/01/25 11:50 BP 113/65 03/01/25 12:00 Pulse Ox 93 03/01/25 12:10 Laboratory Results - last 24 hr 02/28/25 02/28/25 19:39 23:17 WBC 3.97 L RBC 3.68 L Hgb 10.7 L Hct 33.6 L MCV 91 MCH 29.1 MCHC 31.8 L RDW 19.2 H Plt Count 155 MPV 9.8 Immature Gran % 0.5 Neutrophils % 61.7 Lymphocytes % 30.7 Monocytes % 6.0 Eosinophils % 0.8 Basophils % 0.3 Nucleated RBC % 0.0 Absolute Neutrophils 2.45 Absolute Lymphocytes 1.22 Absolute Monocytes 0.24 Absolute Eosinophils 0.03 Absolute Basophils 0.01 VBG pH 7.39 VBG pCO2 46 VBG pO2 33 VBG HCO3 28 VBG Total CO2 26 VBG O2 Saturation 59 VBG Base Excess 3 VBG Lactate 1.5 Sodium 141 Potassium 3.7 Chloride 104 Carbon Dioxide 29.5 Anion Gap 7.5 BUN 14 Creatinine 0.8 Est GFR (CKD-EPI 2020) 81.21 Glucose 92 Uric Acid 5.3 Calcium 9.2 Phosphorus 3.6 Magnesium 1.1 L Total Bilirubin 0.5 AST 23 ALT 21 Alkaline Phosphatase 50 Troponin I 7 NT-Pro-B Natriuret Pep 93 Total Protein 6.8 Albumin 3.1 L Lipase 29 Procalcitonin < 0.10 TSH 3.20 Urine Color Yellow Urine Clarity Clear Urine pH 5.5 Ur Specific [place] 1.015 Urine Protein Negative Urine Ketones Negative Urine Blood Negative Urine Nitrite Negative Urine Bilirubin Negative Urine Urobilinogen 0.2 Ur Leukocyte Esterase Negative Urine Glucose Negative Time Spent with Patient Time Spent with Patient: 35-49 minutes Time was spent: preparing to see the patient(eg.review tests), obtaining and/or reviewing separately otained hiistory, ordering medications,tests, procedures, referring, communicating with other health auto care center manager, indepentently interpreting results and counseling the patient
--- NOTE | 2025-03-01 13:17 | DI.VRAD_ITS ---
PROCEDURE INFORMATION: Exam: XR Chest Exam date and time: 03/01/2025 11:59 AM Age: 64 years old Clinical indication: Other: New pleurx catheter; Prior surgery; Surgery date: Post-operative (0-2 days) TECHNIQUE: Imaging protocol: Radiologic exam of the chest. Views: 1 view. COMPARISON: CT CHEST PE ABD PELVIS W 02/28/2025 8:09 PM FINDINGS: Tubes, catheters and devices: There is a right internal jugular venous Port a catheter, tip is projecting over right atrium. Lungs: There is airspace opacity in the right lower lung which may represent atelectasis or consolidation. Mild interstitial and perihilar opacities in the bilateral lungs suspicious of pulmonary edema. Pleural spaces: There has been improvement of the right pleural effusion with mild residual effusion suspected. The effusion may extend into the minor fissure. Heart/Mediastinum: Unremarkable. No cardiomegaly. Bones/joints: Unremarkable. IMPRESSION: 1. There has been improvement of the right pleural effusion. There is stable airspace opacity in the right lower lung which may represent atelectasis or consolidation. 2. Interstitial and perihilar thickening suspicious of pulmonary edema. Dictated and Authenticated by: Guillermo Bailey MD. Orderin Gian Arnold MD
--- NOTE | 2025-03-01 13:49 | W.PC.ACHO ---
Registration Status: ADM IN Primary Language: Preferred Language: Yoruba ED Information & Data Chief Complaint Dizzy/Sync 02/28/25 17:29 Triage Note Pt states she has cancer and 02/28/25 17:01 had chemo 6/. States since that episode has had intermittent episodes of dizziness since. Pt states last night it was enough that she could only take small steps at a time. Pt does not feel dizzy at this moment. Medical / Surgical History (Last Reviewed 02/28/25 @ 22:28 by Bay Chen) Accessory skin tags Seborrheic keratosis, inflamed Back pain Headache Chronic back pain Ocular hypertension Hyperlipidemia Depression Snoring (02/05/18) Neoplasm of unspecified nature of bone, soft tissue, and skin (02/05/18) (Last Reviewed 02/28/25 @ 22:28 by Bay Chen) History of colonoscopy (~02/2022) History of tubal ligation History of cholecystectomy Most Recent Vital Signs Temperature 36.5 C 03/01/25 13:31 Temperature Source Tympanic 03/01/25 13:31 Pulse 100 H 03/01/25 13:31 Pulse 90 03/01/25 11:50 Respiratory Rate 18 03/01/25 13:31 Respiratory Effort Normal, Non-Labored 02/28/25 17:20 Respiratory Depth Normal 02/28/25 17:20 Respiratory Pattern Normal 02/28/25 17:20 Blood Pressure 114/59 L 03/01/25 13:31 Blood Pressure Mean 77 03/01/25 13:31 Pulse Oximetry 94 03/01/25 13:31 Oxygen Delivery Method Room Air 03/01/25 13:31 Oxygen Flow Rate 0 03/01/25 13:31 Pain Level 0 03/01/25 13:31 Allergies No Known Allergies Allergy (Verified 02/28/25 17:06) Precautions Isolation Standard precaution 02/28/25 17:05 IV IV Catheter Type [Right Saline Lock Antecubital] IV Catheter Gauge [Right 20 Antecubital] Diet Orders Category Date Time Status DIET [Diabetes Consistent CHO] [DIET] Nutrition 03/01/25 Lunch Active Diabetes Consistent CHO/Heart Healthy [DIET] Nutrition 03/01/25 Breakfast Active Diagnostics 03/01/25 02/28/25 02/28/25 Range/Units 13:29 23:17 19:39 WBC 3.97 L (4.4-10.8) 10^3/uL RBC 3.68 L (3.93-5.22) 10^6/uL Hgb 10.7 L (11.2-15.7) g/dL Hct 33.6 L (36.0-46.0) % MCV 91 (80-95) fL MCH 29.1 (27.0-33.0) pg MCHC 31.8 L (32.0-36.0) % RDW 19.2 H (11.7-14.6) % Plt Count 155 (130-400) 10^3/uL MPV 9.8 (8.0-11.0) fL Immature Gran % 0.5 % Neutrophils % 61.7 % Lymphocytes % 30.7 % Monocytes % 6.0 % Eosinophils % 0.8 % Basophils % 0.3 % Nucleated RBC % 0.0 (0.0-0.3) % Absolute Neutrophils 2.45 (1.2-6.7) 10^3/uL Absolute Lymphocytes 1.22 (1.2-3.4) 10^3/uL Absolute Monocytes 0.24 (0.1-0.8) 10^3/uL Absolute Eosinophils 0.03 (0.0-0.7) 10^3/uL Absolute Basophils 0.01 (0.0-0.2) 10^3/uL PT Pending INR Pending VBG pH 7.39 (7.31-7.41) VBG pCO2 46 (41-51) mmHg VBG pO2 33 mmHg VBG HCO3 28 (23-28) mmol/L VBG Total CO2 26 (24-29) mmol/L VBG O2 Saturation 59 % VBG Base Excess 3 (-2-3) mmol/L VBG Lactate 1.5 (<or=2.0) mmol/L Sodium 141 (136-145) mmol/L Potassium 3.7 (3.5-5.1) mmol/L Chloride 104 (98-107) mmol/L Carbon Dioxide 29.5 (21.0-32.0) mmol/L Anion Gap 7.5 (3-11) mmol/L BUN 14 (7-18) mg/dL Creatinine 0.8 (0.55-1.02) mg/dL Est GFR (CKD-EPI 2020) 81.21 (mL/min/1.73m2) Glucose 92 (74-106) mg/dL Uric Acid 5.3 (2.6-6.0) mg/dL Calcium 9.2 (8.5-10.1) mg/dL Phosphorus 3.6 (2.6-4.7) mg/dL Magnesium 1.1 L (1.8-2.4) mg/dL Total Bilirubin 0.5 (0.2-1.0) mg/dL AST 23 (15-37) U/L ALT 21 (14-59) U/L Alkaline Phosphatase 50 (46-116) U/L Troponin I 7 (<or=51) ng/L NT-Pro-B Natriuret Pep 93 (<300) pg/mL Total Protein 6.8 (6.4-8.2) g/dL Albumin 3.1 L (3.4-5.0) g/dL Lipase 29 (<78) U/L Procalcitonin < 0.10 ng/mL TSH 3.20 (0.36-3.74) uIU/mL Urine Color Yellow (Yellow) Urine Clarity Clear (Clear) Urine pH 5.5 (5-8) Ur Specific [place] 1.015 (1.005-1.025) Urine Protein Negative (Neg-Trace) mg/dL Urine Ketones Negative (Negative) mg/dL Urine Blood Negative (Negative) Urine Nitrite Negative (Negative) Urine Bilirubin Negative (Negative) Urine Urobilinogen 0.2 (Up to 0.2) mg/dL Ur Leukocyte Esterase Negative (Negative) Urine Glucose Negative (Negative) mg/dL 02/28/25 22:14 Blood Culture - Pending Blood 02/28/25 19:39 Blood Culture - Pending Blood [id number]-Amvu Documentation Fingerstick Glucose Start: 03/01/25 09:02 Freq: Status: Complete Protocol: Activity Type Activity Date Activity User E-sign Co-sign Detail Recorded Client Recorded Date Recorded By Document 03/01/25 09:01 MARIA A [place](3) [id number] 03/01/25 09:02 MARIA A [place](4) Intake and Output - 24 Hour Total 02/28/25 16:51 thru 03/01/25 11:24 Intake Total 50 Balance 50 Weight 90.718 kg Intake: IV 50 Falls Risk Assessment History of Falls No History 02/28/25 17:23 Contributing Factors No Factors 02/28/25 17:23 Ambulatory Aids Independent 02/28/25 17:23 Tubes/Lines None 02/28/25 17:23 Gait Evaluation W/no contributing factors 02/28/25 17:23 Cognition No cognitive impairment 02/28/25 17:23 Fall Total Score 10 02/28/25 17:23 Level of Risk Standard/Low Risk 02/28/25 17:23 Problems (Last Reviewed 02/28/25 @ 22:28 by Bay Chen) Pleural effusion (Acute) Stage IV adenocarcinoma of endometrium (Chronic) Type 2 diabetes mellitus with peripheral neuropathy (Chronic) Hypertension (Chronic) Notes 03/01/25 11:47 Nursing Notes by Angie Garcia Patient returns from the OR s/p chest tube placement under local anesthesia. Patient comfortable at the moment. VSS. Report received from OR staff. Initialized on 03/01/25 11:47 - END OF NOTE 03/01/25 01:47 Nursing Notes by Don Modi PT provided with inpatient bed while she stays in ED overnight Nursing Note: Initialized on 03/01/25 01:47 - END OF NOTE v v v v v v v v v Sending and/or Receiving Nurses: Please use comment section below to note any information pertinent to the patient hand-off not included above. Information / Comments: Report called at 12:40. ED request ms staff transport pt to med surg approx 30-40 minutes after report called. Report received from: Dhara garcia, ED RN
[2025-03-01 14:19] LABS: INR 1.1 (0.9-1.1); Prothrombin Time 10.7 sec (9.1-11.1)
[2025-03-01] MEDS: Heparin 5,000 UNITS/ML VIAL 5000 UNITS SC ×2 (15:21→21:51)
[2025-03-01] MEDS: Multivitamin TAB 1 TAB PO (15:21)
[2025-03-01] MEDS: Normal Saline Flush 10 ML SYR IVP ×2 (15:22→20:03)
[2025-03-01] MEDS: Acetaminophen 325 MG TAB PO (15:26)
[2025-03-01] MEDS: Simvastatin 20 MG TAB PO (20:02)
[2025-03-01] MEDS: Melatonin 3 MG TAB PO (20:02)
[2025-03-01] MEDS: Acetaminophen 325 MG TAB 650 MG PO (23:38)
[2025-03-02 04:50] VITALS: BP 104/67; PULSE 96; RESP 24; TEMP 36.7; O2SAT 91
[2025-03-02] MEDS: Heparin 5,000 UNITS/ML VIAL 5000 UNITS SC (05:49)
[2025-03-02 06:31] LABS: HCT 28.9 % (36.0-46.0); HGB 9.2 g/dL (11.2-15.7); MCH 28.8 pg (27.0-33.0); MCHC 31.8 % (32.0-36.0); MCV 91 fL (80-95); MPV 9.6 fL (8.0-11.0); Platelet Count 143 10^3/uL (130-400); RBC 3.19 10^6/uL (3.93-5.22); RDW 19.1 % (11.7-14.6); WBC 3.17 10^3/uL (4.4-10.8)
[2025-03-02 06:52] LABS: ALT 22 U/L (14-59); AST 19 U/L (15-37); Albumin 2.8 g/dL (3.4-5.0); Alkaline Phosphatase 47 U/L (46-116); Anion Gap 10.8 mmol/L (3-11); BUN 10 mg/dL (7-18); Bilirubin, Total 0.4 mg/dL (0.2-1.0); CO2 26.2 mmol/L (21.0-32.0); CREATININE 0.6 mg/dL (0.55-1.02); Calcium 8.7 mg/dL (8.5-10.1); Chloride 104 mmol/L (98-107); Estimated GFR 98.93 (mL/min/1.73m2); Glucose 112 mg/dL (74-106); Magnesium 1.3 mg/dL (1.8-2.4); Potassium 3.5 mmol/L (3.5-5.1); Sodium 141 mmol/L (136-145); Total Protein 6.1 g/dL (6.4-8.2)
[2025-03-02] MEDS: Cholecalciferol (Vitamin D3) 1,000 UNIT TAB 1000 UNITS PO (08:02)
[2025-03-02] MEDS: Lisinopril 5 MG TAB PO (08:02)
[2025-03-02] MEDS: Multivitamin TAB 1 TAB PO (08:02)
[2025-03-02] MEDS: Normal Saline Flush 10 ML SYR IVP (08:02)
[2025-03-02 08:05] VITALS: BP 110/68; PULSE 90; RESP 16; TEMP 36; O2SAT 93
[2025-03-02] MEDS: Ibuprofen 600 MG TAB PO (08:39)
--- NOTE | 2025-03-02 11:08 | W.PM.DS.N ---
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 (3) Type 2 diabetes mellitus with peripheral neuropathy: Status: Chronic (4) Hypertension: Status: Chronic (5) Hyperlipidemia: Discharge Plan Disposition Patient Disposition: Home W/Home Health Services Condition: Improving Discharge Details Reason For Visit: Pleural effusion with tachypnea, Hypomagnesemia Admit Date/Time: 02/28/25 22:38 Admit Provider: Bay Chen Attending Provider: Bay Chen Primary Care Provider: JAYDA AGUILERA [facility] Hospital Course Hospital Course: This is a 64-year-old female patient past medical history significant for stage IV adenocarcinoma of the endometrium type 2 diabetes mellitus hypertension presents to the emergency department with complaints of shortness of breath. Found to have large pleural effusion. Surgery was consulted and Pleurx catheter placed. Her symptoms markedly improved after catheter placement. She has remained hemodynamically stable with no new complaints. She is being discharged to home to resume her usual medications no new prescriptions. She will be discharged with new home health services including nursing to help with Pleurx catheter care and assessment. Monitoring for complications. Discharge discussed with Dr. Calderon Dickson and New Rx's Prescriptions: Continued ondansetron 4 mg tablet,disintegrating 4 - 8 mg PO Q8H PRN Patient Comments: place ONE TO TWO tablets ON THE TONGUE every EIGHT hours needed, not TO exceed FOUR tablets PER DAY prochlorperazine maleate 10 mg tablet 10 mg PO Q6H PRN Patient Comments: TAKE ONE TABLET BY MOUTH EVERY 6 HOURS ON schedule FOR THE first THREE DAYS AFTER chemotherapy, THEN take ONE tablet every SIX hours needed FOR NAUSEA AND vomiting dexamethasone 4 mg tablet 4 mg PO BID PRN Patient Comments: TAKE ONE TABLET BY MOUTH TWICE DAILY NEEDED FOR NAUSEA OR FOR VOMITING insulin glargine [Lantus Solostar U-100 Insulin] 100 unit/mL (3 mL) insulin pen 20 unit subcut QPM Patient Comments: states she is not taking - moved to [facility] metformin 500 mg tablet 1,000 mg PO BID simvastatin 20 mg tablet 20 mg PO DAILY cholecalciferol (vitamin D3) 25 mcg (1,000 unit) capsule 25 mcg PO DAILY omega-3 fatty acids 500 mg capsule 500 mg PO DAILY multivitamin Tablet 1 tab PO DAILY lisinopril 5 mg tablet 5 mg PO DAILY Antacid (calcium carbonate) 215 mg calcium (500 mg) tablet,chewable 500 mg PO DAILY cetirizine 5 mg tablet 5 mg PO DAILY PRN Ozempic 0.25 mg or 0.5 mg (2 mg/3 mL) pen injector 0.25 mg subcut QWEEK Rx Instructions: for 4 weeks insulin glargine U-300 conc [Toujeo Max U-300 SoloStar] 300 unit/mL (3 mL) insulin pen 20 unit subcut HS Xiidra 5 % dropperette 2 drp ophthalmic (eye) QAM AND QPM Rx Instructions: administer approximately 12 hours apart Discharge Instructions Instructions: Pleural effusion, How to Care for a Pleural Catheter Additional Instructions: pleurx care as directed Stand Alone Forms: Nursing Discharge Form Referrals: JAYDA AGUILERA NP [Primary Care Provider, Medicine] Referral Note: Please call the office to set up a hospital follow up within 7-10 days Clayton Springer MD [ [facility] STAFF PHYSICIAN, Surgery] Referral Note: Please call the office on Monday to make an appointment. Activity:: Activity as Tolerated Equipment/Supplies:: No Equipment Needed Diet:: As Tolerated Discharge Orders Discharge Orders: Discharge Order (Routine); Ordered 03/02/25 Ordered By: Tawny Mendoza Discharge Data Discharge Date/Time-TO BE ENTERED AT DEPARTURE: 03/02/25 13:23 DS: Summary Time Spent with Patient providing and/or coordinating discharge services: Greater than 30 minutes Status at Discharge Functional status at discharge: independent ambulation Overall status at discharge: patient is progressing back to baseline Mental Status: mental status grossly normal Speech and Movement: speech and movement normal Mood: congruent mood Affect: normal affect Exam Narrative Exam Narrative: Chronically ill-appearing female older than stated age head is atraumatic eyes nonicteric noninjected oral mucosas dry neck full range of motion cardiovascular regular rate and rhythm respirations even unlabored Pleurx catheter intact right chest wall no crepitus dressing clean dry and intact no drainage abdomen round nontender moves all extremities equally neurologic she is awake alert oriented no focal deficits psychiatric appropriate mood and affect Psych Mental Status: mental status grossly normal Speech and Movement: speech and movement normal Mood: congruent mood Affect: normal affect DS: Data Vitals/I&O Vitals and I&O: Vital Signs Temperature 36 C L 03/02/25 08:05 Temperature Source Temporal Artery Scan 03/02/25 08:05 Pulse 90 03/02/25 08:05 Pulse Rhythm Regular 03/01/25 13:52 Pulse 90 03/01/25 11:50 Respiratory Rate 16 03/02/25 08:05 Respiratory Effort Normal, Non-Labored 03/01/25 13:52 Respiratory Depth Normal 03/01/25 13:52 Respiratory Pattern Normal 03/01/25 13:52 Blood Pressure 110/68 03/02/25 08:05 Blood Pressure Mean 82 03/02/25 08:05 Pulse Oximetry 93 03/02/25 08:05 Oxygen Delivery Method Room Air 03/02/25 08:05 Oxygen Flow Rate 0 03/02/25 08:05 Pain Level 6 03/02/25 08:39 Intake & Output 03/01/25 03/01/25 03/02/25 11:59 23:59 11:59 Intake Total 50 / 100 50 / 100 100 / 100 Output Total 800 / 800 Balance 50 / 100 50 / 100 -700 / -700 Weight 90.718 kg 92.164 kg 91.1 kg Intake: IV 50 / 100 50 / 100 100 / 100 Output: Urine 800 / 800 Other: Urine Color Yellow Urine Appearance Clear Clear Urine Odor None Data Completed and Pending Labs on day of discharge: Labs from last 24 hours 03/02/25 03/01/25 06:10 13:50 WBC 3.17 L RBC 3.19 L Hgb 9.2 L Hct 28.9 L MCV 91 MCH 28.8 MCHC 31.8 L RDW 19.1 H Plt Count 143 MPV 9.6 PT 10.7 INR 1.1 Sodium 141 Potassium 3.5 Chloride 104 Carbon Dioxide 26.2 Anion Gap 10.8 BUN 10 Creatinine 0.6 Est GFR (CKD-EPI 2020) 98.93 Glucose 112 H Calcium 8.7 Magnesium 1.3 L Total Bilirubin 0.4 AST 19 ALT 22 Alkaline Phosphatase 47 Total Protein 6.1 L Albumin 2.8 L Preliminary micro results at discharge 02/28/25 22:14 Blood Blood Culture - Preliminary NO GROWTH 24 HOURS 02/28/25 19:39 Blood Blood Culture - Preliminary NO GROWTH 24 HOURS PFSH All Active Problems (Updated 03/01/25 @ 01:05 by Bay Chen) Pleural effusion (Acute) Advanced care planning/counseling discussion (Acute) Palliative care patient (Acute) Obesity (Chronic) Port-A-Cath in place (Acute) Stage IV adenocarcinoma of endometrium (Chronic) Dx 2024: Large R pleural effusion and +retroperitoneal and pelvic lymph nodes. 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 Staging hysterectomy scheduled 12/10/24 Thickened endometrium (Acute) Postmenopausal bleeding (Acute) Nail dystrophy (Acute) Onychomycosis (Acute) Type 2 diabetes mellitus with peripheral neuropathy (Chronic) Peripheral neuropathy (Acute) Screening for colon cancer (Acute) Diabetes (Chronic) Hypertension (Chronic) Morbid obesity (Acute) Medical History Accessory skin tags Seborrheic keratosis, inflamed Back pain Headache Chronic back pain Ocular hypertension Hyperlipidemia Depression Snoring (02/05/18) Neoplasm of unspecified nature of bone, soft tissue, and skin (02/05/18) Surgical History History of colonoscopy (~02/2022) History of tubal ligation History of cholecystectomy Family History Father FH: prostate cancer Sister Cancer cervical Social History Smoking/Tobacco Use Status: Never Second Hand Exposure: No Smoking risk assessment performed?: Yes Alcohol Intake: former Drug use: Never Substance use type: does not use Household members: spouse Housing: house Sexually active: Yes Current gender identity: female What is your relationship status?: Panel score (0-1 are the most socially isolated patients): 1 What type of physical activity do you participate in: none Seatbelt use: always Helmet use: Yes Do you feel safe at home: Yes Do you feel safe in your relationship?: Yes Female Reproductive History Menstrual Age of Menarche: 9 History History 4 Para 3 Hx # Term Pregnancies Multiple births Hx # Pregnancies Ectopic pregnancies AB induced Hx Number of Living Children AB spontaneous 1 Past Pregnancies Del. Date GA/Weeks # Preg Succ Route Wgt Sex Labor Lgth Anesthesia Location Prov Complic 08/29/87 37 No Yes vaginal 3316.894 g Female 12/21/89 40 Yes vaginal 3628.739 g Male 07/14/92 40 No Yes vaginal 3685.438 g Female Time Spent with Patient Time Spent with Patient: 45-69 minutes Time was spent: preparing to see the patient(eg.review tests), obtaining and/or reviewing separately otained hiistory, referring, communicating with other health health care assistant, indepentently interpreting results, counseling the patient and care coordination
--- NOTE | 2025-03-02 11:11 | PDOC.HHF2F_ITS ---
Home Health Referral Home Health Orders Clinical synopsis of why skilled professionals are needed: new pleural catheter, Medical diagnosis necessitation home health referral: pleural effusion, s/p Pleurx catheter placement Registered Nurse: Check all that apply Assess for exacerbation of medical condition, instruct patient/caregivers on signs and symptoms to report for early detection: Ordered Assess wound for signs and symptoms of infection, instruct on wound care and/or provide skilled wound care consisting of: Pleurx catheter evaluation and care Encounter Date and Reason: I certify that a FTF encounter for this patient was performed on March 02, 2025 and that such encounter was related to the primary reason the patient requires home health services. The encounter was conducted in the following manner: * By me as the certifying physician, [employer], PA or * By an inpatient physician, [employer]ER or PA during an inpatient stay who communicated findings to me, Certification And Authentication I certify that I composed the above information based on my clinical judgment relating to this patient's medical condition and, if applicable, clinical findings communicated to me by the NPP or inpatient physician who performed the FTF encounter. Name of Provider that will be monitoring home health services: JAYDA AGUILERA
--- NOTE | 2025-03-02 13:38 | PDOC.CMDIS ---
Date of service: 03/02/25 Time of Service: 13:38 LACE Index Scoring Tool Questions: Length of Stay (in days): 2 Was the patient admitted via the E.D.?: Yes Comorbidities: Diabetes w/o Complication and Metastatic Solid Tumor E.D. Visits: 0 Answers: Total Score: 10 Risk of Readmission: High Risk Care Management Discharge Plan Reason for Hospitalization: PE with tachypnea Discharge Plan: Jyoti returned home today with new orders for HH RN. She was transported home via private vehicle by family. She will follow up with her PCP and discharge plan of care. She was happy to be going home. She reported that her daughter was planning on visiting and staying with her for a short time after discharge. Patient/Family Education Needs: Review discharge instructions and limitations, discussion of self care needs including ask me three. Services Needed at Discharge: Home Health Care Services (new HH RN)
== END 2025-03-02 13:23 | disposition home health service (06) | DRG 181 ==
LOC: ER 23:39 → EDHOLD 03-01 07:28 → PDS 03-01 10:46 → EDHOLD 03-01 11:40 → MS 03-01 13:17
PROVIDERS: Surgery; Admitting Provider Family Medicine; Emergency Provider Physician Assistant; PCP Nurse Practitioner Family; Responsible Provider Nurse Practitioner Acute Care; Visit Provider Family Medicine
PROC: 0W9930Z Drainage of Right Pleural Cavity with Drainage Device, Percutaneous Approach (ICD-10-PCS; CPT 32554; principal; 2025-03-01 10:35)
DX: C78.2 Secondary malignant neoplasm of pleura (principal); C77.5 Secondary and unspecified malignant neoplasm of intrapelvic lymph nodes; C78.7 Secondary malignant neoplasm of liver and intrahepatic bile duct; C79.51 Secondary malignant neoplasm of bone; C79.11 Secondary malignant neoplasm of bladder; J91.0 Malignant pleural effusion; C54.1 Malignant neoplasm of endometrium; E11.42 Type 2 diabetes mellitus with diabetic polyneuropathy; I10 Essential (primary) hypertension; E78.2 Mixed hyperlipidemia; Z95.828 Presence of other vascular implants and grafts; E66.01 Morbid (severe) obesity due to excess calories; B35.1 Tinea unguium; F32.A Depression, unspecified; E78.5 Hyperlipidemia, unspecified; G89.29 Other chronic pain; Z68.34 Body mass index [BMI] 34.0-34.9, adult; Z79.899 Other long term (current) drug therapy; E83.42 Hypomagnesemia; Z79.84 Long term (current) use of oral hypoglycemic drugs; Z79.4 Long term (current) use of insulin
CPT/HCPCS: 32550; 00123; 36415; 36416; 71275; 74177; 80053; 82805; 82962; 83690; 84145; 85027; 87040; 93005; 96365; 96366; 99285; 71045; 81003; 83605; 83735; 83880; 84100; 84443; 84484; 84550; 85025; 85610; 93010; 99223; 99239; J0690; J1644; J1815; J3475; J3490

== ENCOUNTER 2025-03-12 03:35 | Outpatient (RCR) | payer OTHER, SELFPAY ==
[2025-03-12 07:43] LABS: Abs Immature Grans 0.01 10^3/uL (0.0-0.06); HCT 32.6 % (36.0-46.0); HGB 10.3 g/dL (11.2-15.7); Immature Grans % 0.2 %; MCH 29.2 pg (27.0-33.0); MCHC 31.6 % (32.0-36.0); MCV 92 fL (80-95); MPV 9.0 fL (8.0-11.0); Platelet Count 179 10^3/uL (130-400); RBC 3.53 10^6/uL (3.93-5.22); RDW 17.2 % (11.7-14.6); RDW-SD 57.7 fL; WBC 4.08 10^3/uL (4.4-10.8)
[2025-03-12] MEDS: Normal Saline Flush 10 ML SYR IVP (07:52)
[2025-03-12 08:09] LABS: ALT 18 U/L (14-59); AST 19 U/L (15-37); Albumin 2.8 g/dL (3.4-5.0); Alkaline Phosphatase 56 U/L (46-116); Anion Gap 8.9 mmol/L (3-11); BUN 12 mg/dL (7-18); Bilirubin, Total 0.3 mg/dL (0.2-1.0); CO2 28.1 mmol/L (21.0-32.0); Calcium 9.1 mg/dL (8.5-10.1); Chloride 105 mmol/L (98-107); Estimated GFR 81.21 (mL/min/1.73m2); Glucose 175 mg/dL (74-106); Potassium 3.9 mmol/L (3.5-5.1); Sodium 142 mmol/L (136-145); TSH 8.04 uIU/mL (0.36-3.74); Total Protein 6.7 g/dL (6.4-8.2)
== END 2025-04-03 23:59 | disposition home or self-care (01) ==
LOC: INF 03:35
PROVIDERS: Obstetrics & Gynecology Gynecologic Oncology; PCP Nurse Practitioner Family; Visit Provider Internal Medicine Hematology & Oncology
DX: C54.1 Malignant neoplasm of endometrium (principal); Z45.2 Encounter for adjustment and management of vascular access device
CPT/HCPCS: 36591; 80053; 84439; 84443; 85025

== ENCOUNTER 2025-03-22 01:51 | Inpatient (IN) | payer OTHER, SELFPAY ==
[2025-03-22] VITALS (225 sets, daily range): BP systolic 96–164; BP diastolic 53–110; PULSE 91–135; RESP 8–33; TEMP 36.4–39.3; O2SAT 86–96
--- NOTE | 2025-03-22 02:00 | DI.RAD_ITS ---
Exam(s) XR CHEST 2V PA LATERAL EXAM: XR CHEST 2V PA LATERAL CLINICAL HISTORY: febrile on chemo TECHNIQUE: 2D digital imaging was performed of the chest. Two images were obtained. PA and lateral views were obtained. COMPARISON: CR OPERATIVE CHOLANGIOGRAM from 06/11/[address] CHEST PE ABD PELVIS W from 02/28/2025 CR,XR XR PORTABLE CHEST AP from 03/01/2025 FINDINGS: MEDIASTINUM: Normal. HEART: Normal. PULMONARY VASCULATURE: Normal. LUNGS: The left lung is clear. There is a small right pleural effusion. There is an infiltrate seen in the right lower lobe. The infiltrate appears to have improved compared to the CT scan and chest x-ray from 02/28 and 628. PLEURAL SPACE: No pleural effusion or pneumothorax. BONE:Within normal limits for the patient's age. OTHER FINDINGS:The venous catheter is in good position. IMPRESSION: 1. Persistent small right pleural effusion. 2. Right basilar infiltrate. It appears to have improved compared to the examination from 02/28/2025. 3. The preliminary [facility] report was reviewed. DATA REPOSITORY: RADIATION DOSE DELIVERED:
[2025-03-22 02:28] LABS: BE (Venous) 5 mmol/L (-2-3); HCO3 (Venous) 29 mmol/L (23-28); O2 Sat (Venous) 70 %; TCO2 (Venous) 27 mmol/L (24-29); pCO2 (Venous) 42 mmHg (41-51); pO2 (Venous) 37 mmHg
[2025-03-22 02:36] LABS: Abs Immature Grans 0.00 10^3/uL (0.0-0.06); HCT 27.9 % (36.0-46.0); HGB 9.0 g/dL (11.2-15.7); Immature Grans % 0.0 %; MCH 29.0 pg (27.0-33.0); MCHC 32.3 % (32.0-36.0); MCV 90 fL (80-95); MPV 10.2 fL (8.0-11.0); Platelet Count 116 10^3/uL (130-400); RBC 3.10 10^6/uL (3.93-5.22); RDW 15.7 % (11.7-14.6); RDW-SD 51.0 fL
[2025-03-22] MEDS: Normal Saline 1,000 ML 1000 ML IV ×2 (02:44→02:46)
[2025-03-22 02:53] LABS: WBC 1.16 10^3/uL (4.4-10.8)
[2025-03-22 02:56] LABS: ALT 34 U/L (14-59); AST 31 U/L (15-37); Albumin 2.7 g/dL (3.4-5.0); Alkaline Phosphatase 48 U/L (46-116); Anion Gap 8.7 mmol/L (3-11); BUN 23 mg/dL (7-18); Bilirubin, Total 0.4 mg/dL (0.2-1.0); CO2 28.3 mmol/L (21.0-32.0); Calcium 8.7 mg/dL (8.5-10.1); Chloride 104 mmol/L (98-107); Estimated GFR 81.21 (mL/min/1.73m2); Glucose 236 mg/dL (74-106); Magnesium 1.0 mg/dL (1.8-2.4); Potassium 3.6 mmol/L (3.5-5.1); Sodium 141 mmol/L (136-145); Total Protein 6.3 g/dL (6.4-8.2)
[2025-03-22] MEDS: PIPERACILLIN/TAZO 4.5 GM in Normal Saline 100 ML IVPB (02:57)
[2025-03-22 03:00] LABS: RBC Morphology Normal
--- NOTE | 2025-03-22 03:00 | RT.EKG_ITS ---
APPROVED REPORT Exam: Resting ECG Reason for Exam: [id number] Patient Location: E HR:101 bpm ECG Measurements Heart Rate 101 AXIS KS 160 P 44 QRSd 78 QRS -21 QT 351 T 34 QTc 455 Conclusion Sinus tachycardia...rate> [address] segment or T wave abnormalities to suggest occlusive MT
--- NOTE | 2025-03-22 03:25 | W.ED.GENAD ---
Discharge Plan Discharge Details Chief Complaint: Fever Primary Care Provider: JAYDA AGUILERA ED Provider: Vani Briggs Home Meds and New Rx's Prescriptions: No Action ondansetron 4 mg tablet,disintegrating 4 - 8 mg PO Q8H PRN Patient Comments: place ONE TO TWO tablets ON THE TONGUE every EIGHT hours needed, not TO exceed FOUR tablets PER DAY prochlorperazine maleate 10 mg tablet 10 mg PO Q6H PRN Patient Comments: TAKE ONE TABLET BY MOUTH EVERY 6 HOURS ON schedule FOR THE first THREE DAYS AFTER chemotherapy, THEN take ONE tablet every SIX hours needed FOR NAUSEA AND vomiting dexamethasone 4 mg tablet 4 mg PO BID PRN Patient Comments: TAKE ONE TABLET BY MOUTH TWICE DAILY NEEDED FOR NAUSEA OR FOR VOMITING insulin glargine [Lantus Solostar U-100 Insulin] 100 unit/mL (3 mL) insulin pen 20 unit subcut QPM Patient Comments: states she is not taking - moved to [facility] metformin 500 mg tablet 1,000 mg PO BID simvastatin 20 mg tablet 20 mg PO DAILY cholecalciferol (vitamin D3) 25 mcg (1,000 unit) capsule 25 mcg PO DAILY omega-3 fatty acids 500 mg capsule 500 mg PO DAILY multivitamin Tablet 1 tab PO DAILY Antacid (calcium carbonate) 215 mg calcium (500 mg) tablet,chewable 500 mg PO DAILY cetirizine 5 mg tablet 5 mg PO DAILY PRN Ozempic 0.25 mg or 0.5 mg (2 mg/3 mL) pen injector 0.5 mg subcut QWEEK Rx Instructions: on mondays insulin glargine U-300 conc [Toujeo Max U-300 SoloStar] 300 unit/mL (3 mL) insulin pen 12 unit subcut HS Xiidra 5 % dropperette 2 drp ophthalmic (eye) QAM AND QPM Rx Instructions: administer approximately 12 hours apart (DME) Dexcom G7 Sensor Device MISCELLANEOUS Patient Comments: USE DIRECTED HPI General Mode of arrival: ambulatory. Date/Time Provider Initiated Documentation: 03/22/25 01:54. Limitations to Documentation: no limitations. Information obtained by: patient. HPI Narrative: 64yo F with hx HTN, DM, metastatic endometrial cancer on chemo last on 03/13/25, port in place as well as chest tube for recurrent malignant pleural effusion, presenting for fever of 38.7C. Today felt generally unwell. This afternoon noted mild nasal congestion. No cough or difficulty breathing. Has had some nausea but not worse than usual after chemo; no vomiting, diarrhea, or abdominal pain. No dysuria or hematuria. No rash. Woke with right shoulder pain which she attributed to sleeping position, worse with movement, does seem to radiate into her neck. No headache. Went to bed, woke around 2230 with chills and at that point checked her temperature which was 38.7. She called her oncologist and was advised to present to the ED. Related Data Home Medications ?Medication ?Instructions ?Recorded ?Confirmed cholecalciferol (vitamin D3) 25 25 mcg PO DAILY 01/21/22 03/22/25 mcg (1,000 unit) capsule insulin glargine 100 unit/mL (3 20 unit subcut QPM 01/21/22 03/22/25 mL) subcutaneous pen (Lantus Solostar U-100 Insulin) Held on 03/22/25. Instructions: Changed by Provider metformin 500 mg tablet 1,000 mg PO BID 01/21/22 03/22/25 multivitamin 1 tab PO DAILY 01/21/22 03/22/25 omega-3 fatty acids 500 mg capsule 500 mg PO DAILY 01/21/22 03/22/25 simvastatin 20 mg tablet 20 mg PO DAILY 01/21/22 03/22/25 calcium carbonate (Antacid 500 mg PO DAILY 08/08/24 03/22/25 (calcium carbonate)) Held on 03/22/25. Instructions: Pt Stopped/Never Started cetirizine 5 mg tablet 5 mg PO DAILY PRN 12/10/24 03/22/25 semaglutide 0.25 mg or 0.5 mg (2 0.5 mg subcut QWEEK 12/10/24 03/22/25 mg/3 mL) subcutaneous pen injector (Ozempic) dexamethasone 4 mg tablet 4 mg PO BID PRN 01/07/25 03/22/25 ondansetron 4 mg disintegrating 4 - 8 mg PO Q8H PRN 01/07/25 03/22/25 tablet prochlorperazine maleate 10 mg 10 mg PO Q6H PRN 01/07/25 03/22/25 tablet insulin glargine U-300 conc 300 12 unit subcut HS 02/28/25 03/22/25 unit/mL (3 mL) subcutaneous pen (Toujeo Max U-300 SoloStar) lifitegrast 5 % eye drops in a 2 drp ophthalmic (eye) QAM AND QPM 02/28/25 03/22/25 dropperette (Xiidra) blood-glucose sensor (Dexcom G7 03/22/25 03/22/25 Sensor device) Allergies Allergy/AdvReac Type Severity Reaction Status Date / Time No Known Allergies Allergy Verified 03/22/25 02:00 General Stated Complaint: Fever BALTA: 3 Review of Systems Narrative: see HPI Exam Narrative Exam Narrative: General: Alert, well appearing, well nourished, in no acute distress. Head: Normocephalic, atraumatic Neck: Trachea midline, ?Neck supple. ENT: ?MMM.? No oropharygeal lesions or exudate. Chest: Chest tube Chest port site nontender with no surrounding erythema. Cardiac: ?RRR, no murmurs appreciated Resp: No respiratory distress. CTAB. Abd: ?Soft, non-distended, nontender : ?No suprapubic tenderness. No CVA tenderness. Extremities: ?No deformities.? No peripheral edema. Muscular tenderness around right shoulder including trapezius & SCM. Neurologic: GCS 15. ? Moves all extremities freely against gravity. No neck stiffness. -Kernig's -Brudzijohnki. Course Vital Signs Vital signs: Vital Signs Temperature 37.1 C 03/22/25 01:55 Pulse 132 H 03/22/25 01:55 Respiratory Rate 24 03/22/25 01:55 Blood Pressure 164/110 H 03/22/25 01:55 Pulse Oximetry 95 03/22/25 01:55 Temperature 36.4 C L 03/22/25 02:03 Temperature Source Temporal Artery Scan 03/22/25 02:03 Pulse 130 H 03/22/25 02:03 Respiratory Rate 25 H 03/22/25 02:03 Blood Pressure 138/77 03/22/25 02:03 Blood Pressure Position Sitting 03/22/25 02:03 Pulse Oximetry 94 03/22/25 02:03 Oxygen Delivery Method Room Air 03/22/25 02:03 Oxygen Flow Rate 0 03/22/25 01:55 Pain Level 3 03/22/25 02:03 Comment 36.6C via tympanic 03/22/25 01:55 Lab/Test Results Lab/Test Results: 03/22/25 02:24 Blood Blood Culture - Pending 03/22/25 02:04 Blood Blood Culture - Pending Laboratory Tests Range/Units 03/22/25 02:24 WBC (4.4-10.8) 10^3/uL 1.16 L* RBC (3.93-5.22) 10^6/uL 3.10 L Hgb (11.2-15.7) g/dL 9.0 L Hct (36.0-46.0) % 27.9 L MCV (80-95) fL 90 MCH (27.0-33.0) pg 29.0 MCHC (32.0-36.0) % 32.3 RDW (11.7-14.6) % 15.7 H Plt Count (130-400) 10^3/uL 116 L MPV (8.0-11.0) fL 10.2 Immature Gran % % 0.0 Neutrophils % % 19.7 Lymphocytes % % 62.1 Monocytes % % 16.4 Eosinophils % % 0.9 Basophils % % 0.9 Nucleated RBC % (0.0-0.3) % 4.3 H Absolute Neutrophils (1.2-6.7) 10^3/uL 0.23 L* Absolute Lymphocytes (1.2-3.4) 10^3/uL 0.72 L Absolute Monocytes (0.1-0.8) 10^3/uL 0.19 Absolute Eosinophils (0.0-0.7) 10^3/uL 0.01 Absolute Basophils (0.0-0.2) 10^3/uL 0.01 RBC Morphology Normal VBG pH (7.31-7.41) 7.44 H VBG pCO2 (41-51) mmHg 42 VBG pO2 mmHg 37 VBG HCO3 (23-28) mmol/L 29 H VBG Total CO2 (24-29) mmol/L 27 VBG O2 Saturation % 70 VBG Base Excess (-2-3) mmol/L 5 H VBG Lactate (<or=2.0) mmol/L 2.0 Sodium (136-145) mmol/L 141 Potassium (3.5-5.1) mmol/L 3.6 Chloride (98-107) mmol/L 104 Carbon Dioxide (21.0-32.0) mmol/L 28.3 Anion Gap (3-11) mmol/L 8.7 BUN (7-18) mg/dL 23 H Creatinine (0.55-1.02) mg/dL 0.8 Est GFR (CKD-EPI 2020) (mL/min/1.73m2) 81.21 Glucose (74-106) mg/dL 236 H Calcium (8.5-10.1) mg/dL 8.7 Magnesium (1.8-2.4) mg/dL 1.0 L Total Bilirubin (0.2-1.0) mg/dL 0.4 AST (15-37) U/L 31 ALT (14-59) U/L 34 Alkaline Phosphatase (46-116) U/L 48 Total Protein (6.4-8.2) g/dL 6.3 L Albumin (3.4-5.0) g/dL 2.7 L Medical Decision Making 64yo F with hx HTN, DM, metastatic uterine cancer on chemo last on 03/13/25, port in place as well as chest tube for recurrent pleural effusion, presenting for fever of 38.7C. Tachcyardiac on arrival to 132. Initial eval and resus: -Treatment for presumed neutropenic fever here ordered immediately on arrival including broad spectrum antibiotics, IVFB, blood & urine culture, CXR, respiratory viral swab and bloodwork. -On exam she is well appearing. Reports nasal congestion starting this afternoon, otherwise denies infectious symptoms. Did wake this morning with some right shoulder pain radiating into her neck; has tenderness to trapezius and SCM on exam as well as cervical paraspinal tenderness up to occiput. No midline tenderness and her neck is supple with no meningeal signs. No headache and normal neurologic exam. Not suggestive of meningitis and LP is not with risk in this presumed neutropenic patient; given very low suspicion would not do at this time. ED course: -Labs reviewed as below, CBC with neutropenia (WBC 1, ANC 0.23) and anemia at baseline, CMP with no actionable abnormalities, Mg low at 1.0 (IV replacement ordered and will get EKG), VBG with no acidosis and initial lactate 2.0. Respiratory viral swab negative. UA sent and pending. -EKG SR, appropriate intervals, no sequlaea of hypomag. -CXR independently reviewed, right pleural effusion present. -On reassessment HR improved to low 100's. -Repeat lactate downtrending -Attempted to draw pleural fluid from indwelling chest tube however appropriate equipment not available in the ED, nursing will see if can obtain from upstairs otherwise may need assistance from surgery to draw from pleurvac (will defer this to admitting team if unable to get in the ED). Discussed with [facility] obstetrician gynecologist/oncology, agree with plan of care, cefepime for abx would also be acceptable; no indication for transfer at this time. Discussed [facility] hospitalist Dr. Chen; pt accepted to medicine service. Requested bridging orders be placed which was done. Awaiting transfer to the floor. Medical Records Medical records reviewed: Yes I reviewed the patient's medical records. Lab Data Lab results reviewed: Yes I reviewed the patient's lab results. Labs: 03/22/25 04:54 Urine - Clean Catch Urine Culture - Pending 03/22/25 04:01 Blood Blood Culture - Pending 03/22/25 02:24 Blood Blood Culture - Pending Laboratory Tests Range/Units 03/22/25 03/22/25 03/22/25 01:50 02:24 04:01 WBC (4.4-10.8) 10^3/uL 1.16 L* RBC (3.93-5.22) 10^6/uL 3.10 L Hgb (11.2-15.7) g/dL 9.0 L Hct (36.0-46.0) % 27.9 L MCV (80-95) fL 90 MCH (27.0-33.0) pg 29.0 MCHC (32.0-36.0) % 32.3 RDW (11.7-14.6) % 15.7 H Plt Count (130-400) 10^3/uL 116 L MPV (8.0-11.0) fL 10.2 Immature Gran % % 0.0 Neutrophils % % 19.7 Lymphocytes % % 62.1 Monocytes % % 16.4 Eosinophils % % 0.9 Basophils % % 0.9 Nucleated RBC % (0.0-0.3) % 4.3 H Absolute Neutrophils (1.2-6.7) 10^3/uL 0.23 L* Absolute Lymphocytes (1.2-3.4) 10^3/uL 0.72 L Absolute Monocytes (0.1-0.8) 10^3/uL 0.19 Absolute Eosinophils (0.0-0.7) 10^3/uL 0.01 Absolute Basophils (0.0-0.2) 10^3/uL 0.01 RBC Morphology Normal VBG pH (7.31-7.41) 7.44 H VBG pCO2 (41-51) mmHg 42 VBG pO2 mmHg 37 VBG HCO3 (23-28) mmol/L 29 H VBG Total CO2 (24-29) mmol/L 27 VBG O2 Saturation % 70 VBG Base Excess (-2-3) mmol/L 5 H VBG Lactate (<or=2.0) mmol/L 2.0 1.6 Sodium (136-145) mmol/L 141 Potassium (3.5-5.1) mmol/L 3.6 Chloride (98-107) mmol/L 104 Carbon Dioxide (21.0-32.0) mmol/L 28.3 Anion Gap (3-11) mmol/L 8.7 BUN (7-18) mg/dL 23 H Creatinine (0.55-1.02) mg/dL 0.8 Est GFR (CKD-EPI 2020) (mL/min/1.73m2) 81.21 Glucose (74-106) mg/dL 236 H Calcium (8.5-10.1) mg/dL 8.7 Magnesium (1.8-2.4) mg/dL 1.0 L Total Bilirubin (0.2-1.0) mg/dL 0.4 AST (15-37) U/L 31 ALT (14-59) U/L 34 Alkaline Phosphatase (46-116) U/L 48 Total Protein (6.4-8.2) g/dL 6.3 L Albumin (3.4-5.0) g/dL 2.7 L COVID-19 Source Nasopharynx SARS-CoV-2 (PCR) (Negative) Negative Influenza Type A (PCR) (Negative) Negative Influenza Type B (PCR) (Negative) Negative RSV (PCR) (Negative) Negative PFSH All Active Problems (Updated 03/03/25 @ 00:03 by MARIA A COL[place]) Pleural effusion (Acute) Advanced care planning/counseling discussion (Acute) Palliative care patient (Acute) Obesity (Chronic) Port-A-Cath in place (Acute) Stage IV adenocarcinoma of endometrium (Chronic) Dx 2024: Large R pleural effusion and +retroperitoneal and pelvic lymph nodes. 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 Staging hysterectomy scheduled 12/10/24 Thickened endometrium (Acute) Postmenopausal bleeding (Acute) Nail dystrophy (Acute) Onychomycosis (Acute) Type 2 diabetes mellitus with peripheral neuropathy (Chronic) Peripheral neuropathy (Acute) Screening for colon cancer (Acute) Diabetes (Chronic) Hypertension (Chronic) Morbid obesity (Acute) Medical History Accessory skin tags Seborrheic keratosis, inflamed Back pain Headache Chronic back pain Ocular hypertension Hyperlipidemia Depression Snoring (02/05/18) Neoplasm of unspecified nature of bone, soft tissue, and skin (02/05/18) Surgical History History of colonoscopy (~02/2022) History of tubal ligation History of cholecystectomy Family History Father FH: prostate cancer Sister Cancer cervical Social History Smoking/Tobacco Use Status: Never Second Hand Exposure: No Smoking risk assessment performed?: Yes Alcohol Intake: former Drug use: Never Substance use type: does not use Household members: spouse Housing: house Sexually active: Yes Current gender identity: female What is your relationship status?: Panel score (0-1 are the most socially isolated patients): 1 What type of physical activity do you participate in: none Seatbelt use: always Helmet use: Yes Do you feel safe at home: Yes Do you feel safe in your relationship?: Yes Female Reproductive History Menstrual Age of Menarche: 9 History History 4 Para 3 Hx # Term Pregnancies Multiple births Hx # Pregnancies Ectopic pregnancies AB induced Hx Number of Living Children AB spontaneous 1 Past Pregnancies Del. Date GA/Weeks # Preg Succ Route Wgt Sex Labor Lgth Anesthesia Location Prov Complic 08/29/87 37 No Yes vaginal 3316.894 g Female 12/21/89 40 Yes vaginal 3628.739 g Male 11/10/92 40 No Yes vaginal 3685.438 g Female
[2025-03-22] MEDS: MAGNESIUM SULFATE 1 GM/100 ML BAG IV_INF (03:32)
[2025-03-22] MEDS: LINEZOLID 600 MG/300 ML BAG 300 MG IVPB (03:46)
[2025-03-22 03:59] LABS: COVID-19 PCR Negative (Negative); RSV PCR Negative (Negative)
--- NOTE | 2025-03-22 04:05 | DI.VRAD_ITS ---
PROCEDURE INFORMATION: Exam: XR Chest Exam date and time: 03/22/2025 3:09 AM Age: 64 years old Clinical indication: Fever; Prior surgery; Surgery date: 6+ months; Surgery type: Port; Febrile on chemo. Patient has primary uterine cancer TECHNIQUE: Imaging protocol: Radiologic exam of the chest. Views: 2 views. COMPARISON: XR PORTABLE CHEST AP 03/01/2025 11:59 AM FINDINGS: Tubes, catheters and devices: Right chest wall port tip is in the distal SVC. Lungs: See Pleural spaces finding. Pleural spaces: Small to moderate volume right-sided pleural effusion. Probable airspace opacity underlying the right pleural effusion, may signify pneumonia/aspiration. Heart/Mediastinum: Unremarkable. No cardiomegaly. Bones/joints: Unremarkable. IMPRESSION: 1. Small to moderate volume right-sided pleural effusion. 2. Probable airspace opacity underlying the right pleural effusion, may signify pneumonia/aspiration. Dictated and Authenticated by: Joel Samano MD. Orderin Chester Ludwig MD
[2025-03-22] MEDS: Ondansetron 4 MG/2 ML VIAL IVP (05:56)
[2025-03-22 05:59] LABS: Glucose Negative (Negative)
--- NOTE | 2025-03-22 06:23 | W.PCEDHO ---
Registration Status: REG ER Primary Language: Preferred Language: Estonian ED Information & Data Chief Complaint Fever 03/22/25 03:43 Triage Note Pt undergoing chemo 03/22/25 01:55 infusions for uterine ca w/ mets. 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 Also, new stiffness and discomfort in neck and down into R shoulder. No meds CUTTING TOOL SHARP[employer]. Medical / Surgical History (Last Reviewed 02/28/25 @ 22:28 by Bay Chen) Accessory skin tags Seborrheic keratosis, inflamed Back pain Headache Chronic back pain Ocular hypertension Hyperlipidemia Depression Snoring (02/05/18) Neoplasm of unspecified nature of bone, soft tissue, and skin (02/05/18) (Last Reviewed 02/28/25 @ 22:28 by Bay Chen) History of colonoscopy (~02/2022) History of tubal ligation History of cholecystectomy Most Recent Vital Signs Temperature 36.4 C L 03/22/25 02:03 Temperature Source Temporal Artery Scan 03/22/25 02:03 Pulse 105 H 03/22/25 05:56 Respiratory Rate 23 03/22/25 05:56 Blood Pressure 115/59 L 03/22/25 05:51 Blood Pressure Mean 75 03/22/25 05:51 Blood Pressure Position Sitting 03/22/25 02:03 Pulse Oximetry 93 03/22/25 05:58 Oxygen Delivery Method Nasal Cannula 03/22/25 05:58 Oxygen Flow Rate 2 03/22/25 05:58 Pain Level 3 03/22/25 02:03 Comment 36.6C via tympanic 03/22/25 01:55 Allergies No Known Allergies Allergy (Verified 03/22/25 02:00) Precautions Isolation Protective precaution 03/22/25 02:03 IV IV Catheter Type [Right POWER PORT Subclavian] IV Catheter Gauge [Right 22 Subclavian] Diet Orders Category Date Time Status Regular/Normal [DIET] Nutrition 03/22/25 Breakfast Active Diagnostics 03/22/25 03/22/25 03/22/25 Range/Units 05:17 04:54 04:01 WBC (4.4-10.8) 10^3/uL RBC (3.93-5.22) 10^6/uL Hgb (11.2-15.7) g/dL Hct (36.0-46.0) % MCV (80-95) fL MCH (27.0-33.0) pg MCHC (32.0-36.0) % RDW (11.7-14.6) % Plt Count (130-400) 10^3/uL MPV (8.0-11.0) fL Immature Gran % % Neutrophils % % Lymphocytes % % Monocytes % % Eosinophils % % Basophils % % Nucleated RBC % (0.0-0.3) % Absolute Neutrophils (1.2-6.7) 10^3/uL Absolute Lymphocytes (1.2-3.4) 10^3/uL Absolute Monocytes (0.1-0.8) 10^3/uL Absolute Eosinophils (0.0-0.7) 10^3/uL Absolute Basophils (0.0-0.2) 10^3/uL RBC Morphology VBG pH (7.31-7.41) VBG pCO2 (41-51) mmHg VBG pO2 mmHg VBG HCO3 (23-28) mmol/L VBG Total CO2 (24-29) mmol/L VBG O2 Saturation % VBG Base Excess (-2-3) mmol/L VBG Lactate 1.6 (<or=2.0) mmol/L Sodium (136-145) mmol/L Potassium (3.5-5.1) mmol/L Chloride (98-107) mmol/L Carbon Dioxide (21.0-32.0) mmol/L Anion Gap (3-11) mmol/L BUN (7-18) mg/dL Creatinine (0.55-1.02) mg/dL Est GFR (CKD-EPI 2020) (mL/min/1.73m2) Glucose (74-106) mg/dL Calcium (8.5-10.1) mg/dL Magnesium (1.8-2.4) mg/dL Total Bilirubin (0.2-1.0) mg/dL AST (15-37) U/L ALT (14-59) U/L Alkaline Phosphatase (46-116) U/L Total Protein (6.4-8.2) g/dL Albumin (3.4-5.0) g/dL Urine Color Yellow (Yellow) Urine Clarity Clear (Clear) Urine pH 5.5 (5-8) Ur Specific [place] 1.020 (1.005-1.025) Urine Protein Negative (Neg-Trace) mg/dL Urine Ketones Negative (Negative) mg/dL Urine Blood Negative (Negative) Urine Nitrite Negative (Negative) Urine Bilirubin Negative (Negative) Urine Urobilinogen 0.2 (Up to 0.2) mg/dL Ur Leukocyte Esterase Trace H (Negative) Urine RBC 3-5 H (0-2) HPF Urine WBC 5-10 (0-5) HPF Ur Epithelial Cells Moderate (Negative) HPF Urine Crystals Negative (Negative) HPF Urine Bacteria Few (Negative) HPF Urine Casts Negative (Negative) LPF Urine Mucus Negative (Negative) Ur Culture Indicated? C&S Done As Ordered Urine Glucose Negative (Negative) mg/dL Fluid Type Pending Fluid Source Pending Fluid Color Pending Fluid Clarity Pending Fluid WBC Pending Fld Polynuclear WBCs % Pending Fluid Mononuclear Cell Pending Fluid Glucose Pending Fluid Total Protein Pending Fluid Albumin Pending Fluid LDH Pending COVID-19 Source SARS-CoV-2 (PCR) (Negative) Influenza Type A (PCR) (Negative) Influenza Type B (PCR) (Negative) RSV (PCR) (Negative) Path Cons Comment Pending 03/22/25 03/22/25 Range/Units 02:24 01:50 WBC 1.16 L* (4.4-10.8) 10^3/uL RBC 3.10 L (3.93-5.22) 10^6/uL Hgb 9.0 L (11.2-15.7) g/dL Hct 27.9 L (36.0-46.0) % MCV 90 (80-95) fL MCH 29.0 (27.0-33.0) pg MCHC 32.3 (32.0-36.0) % RDW 15.7 H (11.7-14.6) % Plt Count 116 L (130-400) 10^3/uL MPV 10.2 (8.0-11.0) fL Immature Gran % 0.0 % Neutrophils % 19.7 % Lymphocytes % 62.1 % Monocytes % 16.4 % Eosinophils % 0.9 % Basophils % 0.9 % Nucleated RBC % 4.3 H (0.0-0.3) % Absolute Neutrophils 0.23 L* (1.2-6.7) 10^3/uL Absolute Lymphocytes 0.72 L (1.2-3.4) 10^3/uL Absolute Monocytes 0.19 (0.1-0.8) 10^3/uL Absolute Eosinophils 0.01 (0.0-0.7) 10^3/uL Absolute Basophils 0.01 (0.0-0.2) 10^3/uL RBC Morphology Normal VBG pH 7.44 H (7.31-7.41) VBG pCO2 42 (41-51) mmHg VBG pO2 37 mmHg VBG HCO3 29 H (23-28) mmol/L VBG Total CO2 27 (24-29) mmol/L VBG O2 Saturation 70 % VBG Base Excess 5 H (-2-3) mmol/L VBG Lactate 2.0 (<or=2.0) mmol/L Sodium 141 (136-145) mmol/L Potassium 3.6 (3.5-5.1) mmol/L Chloride 104 (98-107) mmol/L Carbon Dioxide 28.3 (21.0-32.0) mmol/L Anion Gap 8.7 (3-11) mmol/L BUN 23 H (7-18) mg/dL Creatinine 0.8 (0.55-1.02) mg/dL Est GFR (CKD-EPI 2020) 81.21 (mL/min/1.73m2) Glucose 236 H (74-106) mg/dL Calcium 8.7 (8.5-10.1) mg/dL Magnesium 1.0 L (1.8-2.4) mg/dL Total Bilirubin 0.4 (0.2-1.0) mg/dL AST 31 (15-37) U/L ALT 34 (14-59) U/L Alkaline Phosphatase 48 (46-116) U/L Total Protein 6.3 L (6.4-8.2) g/dL Albumin 2.7 L (3.4-5.0) g/dL Urine Color (Yellow) Urine Clarity (Clear) Urine pH (5-8) Ur Specific [place] (1.005-1.025) Urine Protein (Neg-Trace) mg/dL Urine Ketones (Negative) mg/dL Urine Blood (Negative) Urine Nitrite (Negative) Urine Bilirubin (Negative) Urine Urobilinogen (Up to 0.2) mg/dL Ur Leukocyte Esterase (Negative) Urine RBC (0-2) HPF Urine WBC (0-5) HPF Ur Epithelial Cells (Negative) HPF Urine Crystals (Negative) HPF Urine Bacteria (Negative) HPF Urine Casts (Negative) LPF Urine Mucus (Negative) Ur Culture Indicated? Urine Glucose (Negative) mg/dL Fluid Type Fluid Source Fluid Color Fluid Clarity Fluid WBC Fld Polynuclear WBCs % Fluid Mononuclear Cell Fluid Glucose Fluid Total Protein Fluid Albumin Fluid LDH COVID-19 Source Nasopharynx SARS-CoV-2 (PCR) Negative (Negative) Influenza Type A (PCR) Negative (Negative) Influenza Type B (PCR) Negative (Negative) RSV (PCR) Negative (Negative) Path Cons Comment Pending 03/22/25 04:54 Urine Culture - Pending Urine - Clean Catch 03/22/25 05:17 Body Fluid Culture - Pending Thoracentesis Gram Stain - Pending 03/22/25 05:17 Anaerobic Culture - Pending Pleural - Right 03/22/25 04:01 Blood Culture - Pending Blood 03/22/25 02:24 Blood Culture - Pending Blood Intake and Output - 24 Hour Total 03/22/25 01:51 thru 03/22/25 05:06 Intake Total 2500 Balance 2500 Weight 89.811 kg Intake: IV 2500 Falls Risk Assessment History of Falls No History 03/22/25 02:03 Contributing Factors No Factors 03/22/25 02:03 Ambulatory Aids Independent 03/22/25 02:03 Tubes/Lines None 03/22/25 02:03 Gait Evaluation No gait disturbance 03/22/25 02:03 Cognition No cognitive impairment 03/22/25 02:03 Fall Total Score 0 03/22/25 02:03 Level of Risk Standard/Low Risk 03/22/25 02:03 v v v v v v v v v Sending and/or Receiving Nurses: Please use comment section below to note any information pertinent to the patient hand-off not included above. Information / Comments: Report received from: Monika TRAN no questions
--- NOTE | 2025-03-22 07:00 | W.PM.HP.N ---
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 She also had blood cultures and urine culture. She has been started on IV antibiotic therapy now on cefepime and vancomycin with acyclovir for antiviral effects with some lesions on her left hand. These may be early herpetic parul. She is on reverse isolation and will be monitored closely for worsening symptoms or focal infection such as progression of her right possible infiltrate. Once her ANC recovers over 500s and is trending with improvement and if she has no recurrent fever, convert to oral antibiotic therapy if culture positive versus discontinue IV antibiotic therapy and have follow-up closely with oncology and PCP. Possible source of fever being pneumonia should be covered by broad-spectrum antibiotic coverage. She is a full code. (2) Pleural effusion: Start date: 03/22/25 Status: Acute Assessment and plan: Patient is status post thoracentesis with Pleur-evac for palliative care. There is a question of right infiltrate which will be covered by treatment of her neutropenia with fever. Blood cultures were performed. Pleural fluid was sent for evaluation. (3) Thrombocytopenia due to drugs: Start date: 03/22/25 Status: Acute Assessment and plan: This most likely is secondary to chemotherapy and patient will not be on Lovenox or heparin for DVT prophylaxis until this improves with trending. (4) Hypomagnesemia: Start date: 03/22/25 Status: Acute Assessment and plan: Replete IV and trend labs. (5) Stage IV adenocarcinoma of endometrium: Status: Chronic Assessment and plan: Endometrial bleeding in October 2024 with positive biopsy revealing high-grade endometrial adenocarcinoma she has completed her fourth cycle initially diagnosed with local mets and retroperitoneal mets with malignant pleural effusion. Now presents with complications of neutropenia and fever. She was initiated on IV antibiotics and will be continued on vancomycin and cefepime. (6) Type 2 diabetes mellitus with peripheral neuropathy: Status: Chronic Assessment and plan: Glucometer measurements before meals and at bedtime with moderate sliding scale coverage while hospitalized. Hold outpatient medical therapy. (7) Hypertension: Status: Chronic Assessment and plan: Continue outpatient medical therapy. Adjust as needed. (8) Depression: Assessment and plan: Continue outpatient medical therapy. History of Present Illness History of Present Illness Chief Complaint: Fever at home with recent chemotherapy for stage IV endometrial cancer. Narrative: This is a 64-year-old female patient diagnosed with stage IV endometrial cancer presenting with vaginal bleeding and having a positive endometrial biopsy in October 2024 for a high-grade endometrial carcinoma with local and retroperitoneal metastases as well as malignant pleural effusion as evaluated. She began chemotherapy on December 23, 2024. She has had 4 rounds of chemotherapy cycles with the last finishing 03/13/2025. She does have possible pleural metastases with a Pleur-evac over her right chest with recent pleural fluid thoracentesis. She also has a IV port with central venous line access over her right chest. She reported to the ED with fever at home and slight cough which is not changing but no other symptoms. Imaging did reveal possible right lower lobe infiltrate with question aspiration but she also had residual pleural fluid. Her white count was 1.16 thousand with an ANC of 230. Because of fever and presentation post chemotherapy, the patient was admitted for neutropenia with fever coverage. She was given Zosyn and Zyvox in the ED but will be continued on cefepime and vancomycin. She also will have acyclovir with some slight painful red lesions over her fingertips on the left hand. She has no dysuria or GI symptoms. She has had no syncope. She is a diabetic on therapy with stable hyperglycemia. She is a full code. Review of Systems Narrative: 13 point review of systems otherwise unrevealing or stable. [facility] All Active Problems (Updated 03/22/25 @ 07:34 by Bay Chen) Thrombocytopenia due to drugs (Acute) Hypomagnesemia (Acute) Neutropenia (Acute) Sepsis (Acute) Neutropenia with fever (Acute) Pleural effusion (Acute) Advanced care planning/counseling discussion (Acute) Palliative care patient (Acute) Obesity (Chronic) Port-A-Cath in place (Acute) Stage IV adenocarcinoma of endometrium (Chronic) Dx 2024: Large R pleural effusion and +retroperitoneal and pelvic lymph nodes. 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 Staging hysterectomy scheduled 12/10/24 Thickened endometrium (Acute) Postmenopausal bleeding (Acute) Nail dystrophy (Acute) Onychomycosis (Acute) Type 2 diabetes mellitus with peripheral neuropathy (Chronic) Peripheral neuropathy (Acute) Screening for colon cancer (Acute) Diabetes (Chronic) Hypertension (Chronic) Morbid obesity (Acute) Medical History Accessory skin tags Seborrheic keratosis, inflamed Back pain Headache Chronic back pain Ocular hypertension Hyperlipidemia Depression Snoring (02/05/18) Neoplasm of unspecified nature of bone, soft tissue, and skin (02/05/18) Surgical History History of colonoscopy (~02/2022) History of tubal ligation History of cholecystectomy Family History Father FH: prostate cancer Sister Cancer cervical Social History Smoking/Tobacco Use Status: Never Second Hand Exposure: No Smoking risk assessment performed?: Yes Alcohol Intake: former Drug use: Never Substance use type: does not use Household members: spouse Housing: house Sexually active: Yes Current gender identity: female What is your relationship status?: Panel score (0-1 are the most socially isolated patients): 1 What type of physical activity do you participate in: none Seatbelt use: always Helmet use: Yes Do you feel safe at home: Yes Do you feel safe in your relationship?: Yes Female Reproductive History Menstrual Age of Menarche: 9 History History 4 Para 3 Hx # Term Pregnancies Multiple births Hx # Pregnancies Ectopic pregnancies AB induced Hx Number of Living Children AB spontaneous 1 Past Pregnancies Del. Date GA/Weeks # Preg Succ Route Wgt Sex Labor Lgth Anesthesia Location Prov Complic 08/29/87 37 No Yes vaginal 3316.894 g Female 12/21/89 40 Yes vaginal 3628.739 g Male 07/14/92 40 No Yes vaginal 3685.438 g Female Meds Allergies and Home Medications Allergies Allergy/AdvReac Type Severity Reaction Status Date / Time No Known Allergies Allergy Verified 03/22/25 02:00 Home Medications ?Medication ?Instructions ?Recorded ?Confirmed ?Type cholecalciferol (vitamin D3) 25 25 mcg PO DAILY 01/21/22 03/22/25 History mcg (1,000 unit) capsule insulin glargine 100 unit/mL (3 20 unit subcut QPM 01/21/22 03/22/25 History mL) subcutaneous pen (Lantus Solostar U-100 Insulin) Held on 03/22/25. Instructions: Changed by Provider metformin 500 mg tablet 1,000 mg PO BID 01/21/22 03/22/25 History multivitamin 1 tab PO DAILY 01/21/22 03/22/25 History omega-3 fatty acids 500 mg capsule 500 mg PO DAILY 01/21/22 03/22/25 History simvastatin 20 mg tablet 20 mg PO DAILY 01/21/22 03/22/25 History calcium carbonate (Antacid 500 mg PO DAILY 08/08/24 03/22/25 History (calcium carbonate)) Held on 03/22/25. Instructions: Pt Stopped/Never Started cetirizine 5 mg tablet 5 mg PO DAILY PRN 12/10/24 03/22/25 History semaglutide 0.25 mg or 0.5 mg (2 0.5 mg subcut QWEEK 12/10/24 03/22/25 History mg/3 mL) subcutaneous pen injector (Ozempic) dexamethasone 4 mg tablet 4 mg PO BID PRN 01/07/25 03/22/25 History ondansetron 4 mg disintegrating 4 - 8 mg PO Q8H PRN 01/07/25 03/22/25 History tablet prochlorperazine maleate 10 mg 10 mg PO Q6H PRN 01/07/25 03/22/25 History tablet insulin glargine U-300 conc 300 12 unit subcut HS 02/28/25 03/22/25 History unit/mL (3 mL) subcutaneous pen (Toujeo Max U-300 SoloStar) lifitegrast 5 % eye drops in a 2 drp ophthalmic (eye) QAM AND QPM 02/28/25 03/22/25 History dropperette (Xiidra) blood-glucose sensor (Dexcom G7 03/22/25 03/22/25 History Sensor device) Exam Narrative Exam Narrative: General: Patient is moderate to morbidly obese, alert and oriented x 3 and in no acute distress. She is lying comfortably in bed with a slightly dry cough with grunting. HEENT: Normocephalic, eyes with pupils equal and reactive to light symmetrically, extraocular movement intact and sclera anicteric. Oropharynx with moist mucosa and fair dentition. Neck: Supple without JVD. Back: Stooped posture without CVA tenderness. Lungs: Fair aeration with decreased aeration at the right base, no focalizing rales or rhonchi. No expiratory wheeze. Chest: Mediport over right upper chest in place and Pleur-evac present. No crepitus over these areas. Heart: Regular rate and rhythm with no murmurs or gallops appreciated. Breast: Exam deferred. Abdomen: Obese contour, soft and nontender to palpation with no palpable hepatosplenomegaly. Bowel sounds positive all quadrants. Genitalia/rectal: Exam deferred. Extremities: Without clubbing, cyanosis or grossly pitting edema. Fair capillary refill. Skin: Pale, warm and dry. No bruising. Erythematous slight blistering lesions over the left thumb and finger with slight surrounding erythema and no drainage. Neuro: Cranial nerves II through XII gross intact, no focalized motor deficits and no tremor. Psych: Slightly anxious, mood is normal. No abnormal thought processes. Remote and recent memory grossly intact. Results Imaging Imaging Studies: Exam: XR Chest Exam date and time: 03/22/2025 3:09 AM Age: 64 years old Clinical indication: Fever; Prior surgery; Surgery date: 6+ months; Surgery type: Port; Febrile on chemo. Patient has primary uterine cancer TECHNIQUE: Imaging protocol: Radiologic exam of the chest. Views: 2 views. COMPARISON: XR PORTABLE CHEST AP 03/01/2025 11:59 AM FINDINGS: Tubes, catheters and devices: Right chest wall port tip is in the distal SVC. Lungs: See Pleural spaces finding. Pleural spaces: Small to moderate volume right-sided pleural effusion. Probable airspace opacity underlying the right pleural effusion, may signify pneumonia/aspiration. Heart/Mediastinum: Unremarkable. No cardiomegaly. Bones/joints: Unremarkable. IMPRESSION: 1. Small to moderate volume right-sided pleural effusion. 2. Probable airspace opacity underlying the right pleural effusion, may signify pneumonia/aspiration. Labs 03/22/25 02:24 03/22/25 02:24 Labs: Laboratory Results - last 24 hr 03/22/25 03/22/25 03/22/25 01:50 02:24 04:01 WBC 1.16 L* RBC 3.10 L Hgb 9.0 L Hct 27.9 L MCV 90 MCH 29.0 MCHC 32.3 RDW 15.7 H Plt Count 116 L MPV 10.2 Immature Gran % 0.0 Neutrophils % 19.7 Lymphocytes % 62.1 Monocytes % 16.4 Eosinophils % 0.9 Basophils % 0.9 Nucleated RBC % 4.3 H Absolute Neutrophils 0.23 L* Absolute Lymphocytes 0.72 L Absolute Monocytes 0.19 Absolute Eosinophils 0.01 Absolute Basophils 0.01 RBC Morphology Normal VBG pH 7.44 H VBG pCO2 42 VBG pO2 37 VBG HCO3 29 H VBG Total CO2 27 VBG O2 Saturation 70 VBG Base Excess 5 H VBG Lactate 2.0 1.6 Sodium 141 Potassium 3.6 Chloride 104 Carbon Dioxide 28.3 Anion Gap 8.7 BUN 23 H Creatinine 0.8 Est GFR (CKD-EPI 2020) 81.21 Glucose 236 H Calcium 8.7 Magnesium 1.0 L Total Bilirubin 0.4 AST 31 ALT 34 Alkaline Phosphatase 48 Total Protein 6.3 L Albumin 2.7 L Urine Color Urine Clarity Urine pH Ur Specific [place] Urine Protein Urine Ketones Urine Blood Urine Nitrite Urine Bilirubin Urine Urobilinogen Ur Leukocyte Esterase Urine RBC Urine WBC Ur Epithelial Cells Urine Crystals Urine Bacteria Urine Casts Urine Mucus Ur Culture Indicated? Urine Glucose COVID-19 Source Nasopharynx SARS-CoV-2 (PCR) Negative Influenza Type A (PCR) Negative Influenza Type B (PCR) Negative RSV (PCR) Negative 03/22/25 04:54 WBC RBC Hgb Hct MCV MCH MCHC RDW Plt Count MPV Immature Gran % Neutrophils % Lymphocytes % Monocytes % Eosinophils % Basophils % Nucleated RBC % Absolute Neutrophils Absolute Lymphocytes Absolute Monocytes Absolute Eosinophils Absolute Basophils RBC Morphology VBG pH VBG pCO2 VBG pO2 VBG HCO3 VBG Total CO2 VBG O2 Saturation VBG Base Excess VBG Lactate Sodium Potassium Chloride Carbon Dioxide Anion Gap BUN Creatinine Est GFR (CKD-EPI 2020) Glucose Calcium Magnesium Total Bilirubin AST ALT Alkaline Phosphatase Total Protein Albumin Urine Color Yellow Urine Clarity Clear Urine pH 5.5 Ur Specific [place] 1.020 Urine Protein Negative Urine Ketones Negative Urine Blood Negative Urine Nitrite Negative Urine Bilirubin Negative Urine Urobilinogen 0.2 Ur Leukocyte Esterase Trace H Urine RBC 3-5 H Urine WBC 5-10 Ur Epithelial Cells Moderate Urine Crystals Negative Urine Bacteria Few Urine Casts Negative Urine Mucus Negative Ur Culture Indicated? C&S Done As Ordered Urine Glucose Negative COVID-19 Source SARS-CoV-2 (PCR) Influenza Type A (PCR) Influenza Type B (PCR) RSV (PCR) Last Vital Signs Temp 36.7 C 03/22/25 06:16 Pulse 113 H 03/22/25 06:16 Resp 22 03/22/25 06:16 BP 111/53 L 03/22/25 06:16 Pulse Ox 93 03/22/25 06:16 Time Spent Time spent with Patient: >75 minutes Time was spent: preparing to see the patient(eg.review tests), obtaining and/or reviewing separately otained hiistory, ordering medications,tests, procedures, indepentently interpreting results, counseling the patient and care coordination
--- NOTE | 2025-03-22 08:34 | INITIAL_ITS ---
Date of service: 03/22/25 Time of Service: 08:34 Care Management Initial Assmt Initial Assessment Reason for Hospitalization: sepsis Functional Status/Living Situation Patient Presentation: Jyoti was lying in bed, reading a book when CM arrived. She presented to the ER feeling generally unwell. Per report, Jyoti has metastatic endometrial cancer, chemo last on 03/13/25, port in place as well as chest tube for recurrent malignant pleural effusion. Jyoti is pleasant and engages in conversation easily. This morning she states she is feeling nauseous and requested some crackers. 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 She shares she is [place], she is from [place] and moved here for some time ago. She has 5 steps to get outside her home, and states they are no issue for her. Jyoti reports she is independent at baseline, and continues to drive when she feels steady enough to do so. Jyoti is currently seen by [facility] RN and will be a resumption of this service at discharge. CM will continue to follow. Town of Residence: [place] Resides with: Spouse Significant Other/Family: Out of area (3 children. 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 Activities of Daily Living (ADLs): Independent Activities/Hobbies/SocialSupport: Traveling Medications Medication Management: No Issues/Barriers identified Physical Functioning/Mobility Assistive Device: none Advance Directives Advance Directives: Do you have an Advance Directive: N , 14:08 AD On File at [facility]: N 02/28/13, 14:08 Date Asked 03/10/25 03/10/25, 09:45 AD Date Reviewed COLST On File at [facility] COLST Date Scanned Code Status Resuscitation Status Full Code Portal Pt does not currently have a portal and education provided: Yes Insurance Coverage/Financial Issues Insurance: Health Plans ([employer] [facility] ONLY!) - [id number] Care Team Visit Care Team Role Provider Type Travon Hogue MD MD [facility] STAFF PHYSICIAN JAYDA AGUILERA NP Primary Care Provider NON-[employer] [facility] [facility] [employer] STAFF PHYSICIAN Vani Briggs MD Emergency Provider [facility] STAFF PHYSICIAN Bay Chen Admit Provider NON-[facility] STAFF PHYSICIAN Attending Provider Discharge Potential Discharge Needs: PCP F/U Appt Anticipated Barriers to Discharge: Medical Status Patient/Family Education Needs: Review discharge instructions, discuss Ask Me Three Transportation: Private vehicle Plan: Anticipate, Jyoti will be discharged home with a resumption of RN, once medically ready. She will follow up with her community providers and plan of care. She will transport via private vehicle by her . CM will continiue to follow. Social Determinants of Health Screening Social Determinants of health last assessed in clinic: 03/22/25 Will the Patient Participate in the Screening?: Yes Do you worry about having a steady place to live?: no Problems where you live: no known problems In the past 12 months, have you had to go without electric, gas, oil or water in your home?: no 1. Within the past 12 months, we worried whether our food would run out before we got money to buy more.: Never true 2. Within the past 12 months, the food we bought just didn't last and we didn't have money to get more.: Never true Has lack of transportation kept you from medical appointments or from doing things needed for daily living?: no Has anyone in your life made you feel unsafe or unsupported?: no How hard is it for you to pay for the very basics like food, housing, medical care, and heating? Would you say it is:: Not hard at all Do you want help finding or keeping work or a job?: I do not need or want help If for any reason you need help with day-to-day activities such as bathing, preparing meals, shopping, managing finances, etc., do you get the help you need?: I don?t need any help How often do you feel lonely or isolated from those around you?: Never Do you speak a language other than Ukrainian at home?: No Does the patient want assistance with any of the above?: No PFSH All Active Problems (Updated 03/22/25 @ 07:34 by Bay Chen) Thrombocytopenia due to drugs (Acute) Hypomagnesemia (Acute) Neutropenia (Acute) Sepsis (Acute) Neutropenia with fever (Acute) Pleural effusion (Acute) Advanced care planning/counseling discussion (Acute) Palliative care patient (Acute) Obesity (Chronic) Port-A-Cath in place (Acute) Stage IV adenocarcinoma of endometrium (Chronic) Dx 2024: Large R pleural effusion and +retroperitoneal and pelvic lymph nodes. 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 Staging hysterectomy scheduled 12/10/24 Thickened endometrium (Acute) Postmenopausal bleeding (Acute) Nail dystrophy (Acute) Onychomycosis (Acute) Type 2 diabetes mellitus with peripheral neuropathy (Chronic) Peripheral neuropathy (Acute) Screening for colon cancer (Acute) Diabetes (Chronic) Hypertension (Chronic) Morbid obesity (Acute) Medical History Accessory skin tags Seborrheic keratosis, inflamed Back pain Headache Chronic back pain Ocular hypertension Hyperlipidemia Depression Snoring (02/05/18) Neoplasm of unspecified nature of bone, soft tissue, and skin (02/05/18) Surgical History History of colonoscopy (~02/2022) History of tubal ligation History of cholecystectomy Family History Father FH: prostate cancer Sister Cancer cervical Social History Smoking/Tobacco Use Status: Never Second Hand Exposure: No Smoking risk assessment performed?: Yes Alcohol Intake: former Drug use: Never Substance use type: does not use Household members: spouse Housing: house Sexually active: Yes Current gender identity: female What is your relationship status?: Panel score (0-1 are the most socially isolated patients): 1 What type of physical activity do you participate in: none Seatbelt use: always Helmet use: Yes Do you feel safe at home: Yes Do you feel safe in your relationship?: Yes Female Reproductive History Menstrual Age of Menarche: 9 History History 4 Para 3 Hx # Term Pregnancies Multiple births Hx # Pregnancies Ectopic pregnancies AB induced Hx Number of Living Children AB spontaneous 1 Past Pregnancies Del. Date GA/Weeks # Preg Succ Route Wgt Sex Labor Lgth Anesth esia Location Prov Complic 08/29/87 37 No Yes vaginal 3316.894 g Female 12/21/89 40 Yes vaginal 3628.739 g Male 07/14/92 40 No Yes vaginal 3685.438 g Female
[2025-03-22] MEDS: MAGNESIUM SULFATE 2 GM/50 ML BAG IV_INF (09:14)
[2025-03-22] MEDS: Insulin Aspart 300 UNITS/3 ML PEN SC ×3 (09:16→16:55)
[2025-03-22] MEDS: CEFEPIME 2 GM in Normal Saline 100 ML IVPB ×2 (10:04→16:56)
[2025-03-22] MEDS: ACYCLOVIR SODIUM 700 MG in Normal Saline 250 ML 250 MG IVPB ×2 (10:06→16:58)
[2025-03-22] MEDS: VANCOMYCIN/WATER (PEG) 2 GM/400 ML BAG IVPB (10:07)
[2025-03-22] MEDS: Acetaminophen 325 MG TAB 650 MG PO ×2 (10:08→23:05)
[2025-03-22] MEDS: Multivitamin TAB 1 TAB PO (10:08)
[2025-03-22] MEDS: Normal Saline Flush 10 ML SYR IVP ×3 (10:08→20:59)
[2025-03-22] MEDS: Simvastatin 20 MG TAB PO (11:51)
[2025-03-22 16:18] LABS: Vancomycin, Random 34.9 ug/mL (5.0-10.0)
[2025-03-22] MEDS: VANCOMYCIN/WATER (PEG) 1 GM/200 ML BAG IVPB (22:16)
[2025-03-23] VITALS (88 sets, daily range): BP systolic 97–114; BP diastolic 53–67; PULSE 89–125; RESP 9–40; TEMP 36.6–37.6; O2SAT 86–97
[2025-03-23] MEDS: CEFEPIME 2 GM in Normal Saline 100 ML IVPB ×4 (00:44→23:32)
[2025-03-23] MEDS: ACYCLOVIR SODIUM 700 MG in Normal Saline 250 ML 250 MG IVPB ×3 (01:52→17:15)
[2025-03-23 07:11] LABS: Abs Immature Grans 0.00 10^3/uL (0.0-0.06); HCT 23.4 % (36.0-46.0); HGB 7.3 g/dL (11.2-15.7); Immature Grans % 0.0 %; MCH 28.9 pg (27.0-33.0); MCHC 31.2 % (32.0-36.0); MCV 93 fL (80-95); MPV 9.7 fL (8.0-11.0); RBC 2.53 10^6/uL (3.93-5.22); RDW 15.9 % (11.7-14.6); RDW-SD 53.4 fL
[2025-03-23 07:28] LABS: ALT 29 U/L (14-59); AST 20 U/L (15-37); Albumin 2.1 g/dL (3.4-5.0); Alkaline Phosphatase 40 U/L (46-116); Anion Gap 7.3 mmol/L (3-11); BUN 12 mg/dL (7-18); Bilirubin, Total 0.5 mg/dL (0.2-1.0); CO2 26.7 mmol/L (21.0-32.0); Calcium 8.0 mg/dL (8.5-10.1); Chloride 108 mmol/L (98-107); Estimated GFR 98.93 (mL/min/1.73m2); Glucose 106 mg/dL (74-106); Magnesium 1.4 mg/dL (1.8-2.4); Potassium 3.4 mmol/L (3.5-5.1); Sodium 142 mmol/L (136-145); Total Protein 5.7 g/dL (6.4-8.2)
[2025-03-23 07:46] LABS: RBC Morphology Normal; WBC 1.14 10^3/uL (4.4-10.8)
[2025-03-23 07:47] LABS: Platelet Count 90 10^3/uL (130-400)
[2025-03-23] MEDS: Omega-3 Fatty Acids 1000 MG CAP PO (08:03)
[2025-03-23] MEDS: Multivitamin TAB 1 TAB PO (08:03)
[2025-03-23] MEDS: Cholecalciferol (Vitamin D3) 1,000 UNIT TAB 1000 UNITS PO (08:03)
[2025-03-23] MEDS: Simvastatin 20 MG TAB PO (08:03)
[2025-03-23] MEDS: Normal Saline Flush 10 ML SYR IVP ×6 (08:04→20:29)
[2025-03-23] MEDS: VANCOMYCIN/WATER (PEG) 1 GM/200 ML BAG IVPB (09:42)
--- NOTE | 2025-03-23 11:16 | W.PM.PROGNOT ---
Date of Service Date of service: 03/23/25 Time of Service: 11:16 Assessment and Plan Assessment and plan (1) Neutropenia with fever: Start date: 03/22/25 Status: Acute Assessment and plan: This is a 64-year-old lady who is now finished with her fourth cycle of chemotherapy for high-grade endometrial adenocarcinoma which is stage IV. 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 She also had blood cultures and urine culture. She has been started on IV antibiotic therapy now on cefepime and vancomycin with acyclovir for antiviral effects with some lesions on her left hand. These may be early herpetic parul. She is on reverse isolation and will be monitored closely for worsening symptoms or focal infection such as progression of her right possible infiltrate. Once her ANC recovers over 500s and is trending with improvement and if she has no recurrent fever, convert to oral antibiotic therapy if culture positive versus discontinue IV antibiotic therapy and have follow-up closely with oncology and PCP. Possible source of fever being pneumonia should be covered by broad-spectrum antibiotic coverage. She is a full code. 03/23/25 POC d/w Dr Eugene (rougher operator-onc [facility] who agrees with plan of continued iv abx until anc greater than 500. States that the dropping anc is most likely 2/2 dianna from recent chemo. Also, there is a recommendation to start dvtp 2/2 being hypercoagulable with malignancy (2) Pleural effusion: Start date: 03/22/25 Status: Acute Assessment and plan: Patient is status post thoracentesis with Pleur-evac for palliative care. There is a question of right infiltrate which will be covered by treatment of her neutropenia with fever. Blood cultures were performed. Pleural fluid was sent for evaluation. 03/23/25 Called lab and there is no pleural fluid cultures pending. Pt states that her pleurex has not been accessed. D/W who state that the pt will need a vacuum bottle and adapter to drain fluid. CXR does not indicated any pleural effusion. Pt has now been on abx since before admission (ED) so would expect low yield. Pt will need abx regardless as she has a neutropenic fever (3) Thrombocytopenia due to drugs: Start date: 03/22/25 Status: Acute Assessment and plan: This most likely is secondary to chemotherapy and patient will not be on Lovenox or heparin for DVT prophylaxis until this improves with trending. 03/23/25 Recommendations from rougher operator/onc are to give heparin as long as plt are over 50. (4) Hypomagnesemia: Start date: 03/22/25 Status: Acute Assessment and plan: Replete IV and trend labs. 03/23/25 replace (5) Stage IV adenocarcinoma of endometrium: Status: Chronic Assessment and plan: Endometrial bleeding in October 2024 with positive biopsy revealing high-grade endometrial adenocarcinoma she has completed her fourth cycle initially diagnosed with local mets and retroperitoneal mets with malignant pleural effusion. Now presents with complications of neutropenia and fever. She was initiated on IV antibiotics and will be continued on vancomycin and cefepime. (6) Type 2 diabetes mellitus with peripheral neuropathy: Status: Chronic Assessment and plan: Glucometer measurements before meals and at bedtime with moderate sliding scale coverage while hospitalized. Hold outpatient medical therapy. (7) Hypertension: Status: Chronic Assessment and plan: Continue outpatient medical therapy. Adjust as needed. (8) Depression: Assessment and plan: Continue outpatient medical therapy. (9) Hypokalemia: Status: Acute Assessment and plan: replace and recheck labs Subjective Subjective Interval history since last seen: Pt seen and examined in her room this am. Pt states that no fluid has been drained from her pleurex catheter. Exam Narrative Exam Narrative: heent-ncat mmm bald neck-no lad no jvd cv-rrr no mrg lungs-ctab no amu chest wall-port/pleurex does not appear infected abd-sntndbsa ext-no cce bilat neuro- non focal Objective Last Vital Signs Temp 37.1 C 03/23/25 08:37 Pulse 103 H 03/23/25 10:30 Resp 19 03/23/25 10:30 BP 103/62 03/23/25 08:37 Pulse Ox 92 03/23/25 10:30 Laboratory Results - last 24 hr 03/22/25 03/23/25 13:00 05:30 WBC 1.14 L* RBC 2.53 L Hgb 7.3 L Hct 23.4 L MCV 93 MCH 28.9 MCHC 31.2 L RDW 15.9 H Plt Count 90 L MPV 9.7 Immature Gran % 0.0 Neutrophils % 7.8 Lymphocytes % 66.7 Monocytes % 23.7 Eosinophils % 0.9 Basophils % 0.9 Nucleated RBC % 0.0 Absolute Neutrophils 0.09 L* Absolute Lymphocytes 0.76 L Absolute Monocytes 0.27 Absolute Eosinophils 0.01 Absolute Basophils 0.01 RBC Morphology Normal Sodium 142 Potassium 3.4 L Chloride 108 H Carbon Dioxide 26.7 Anion Gap 7.3 BUN 12 Creatinine 0.6 Est GFR (CKD-EPI 2020) 98.93 Glucose 106 Calcium 8.0 L Magnesium 1.4 L Total Bilirubin 0.5 AST 20 ALT 29 Alkaline Phosphatase 40 L Total Protein 5.7 L Albumin 2.1 L Random Vancomycin 34.9 Time Spent with Patient Time Spent with Patient: 35-49 minutes Time was spent: preparing to see the patient(eg.review tests), obtaining and/or reviewing separately otained hiistory, ordering medications,tests, procedures, referring, communicating with other health home care music therapist, indepentently interpreting results, counseling the patient and care coordination
[2025-03-23 11:41] LABS: Vancomycin, Trough 13.1 ug/mL
[2025-03-23] MEDS: Magnesium Oxide 400 MG TAB PO ×2 (11:51→20:28)
[2025-03-23] MEDS: Heparin 5,000 UNITS/ML VIAL 5000 UNITS SC ×2 (11:51→23:31)
[2025-03-23] MEDS: Potassium Chloride 20 MEQ TABCR 40 MEQ PO ×2 (11:51→20:27)
[2025-03-23] MEDS: Insulin Aspart 300 UNITS/3 ML PEN SC ×3 (12:03→21:59)
[2025-03-23] MEDS: Acetaminophen 325 MG TAB 650 MG PO (13:26)
[2025-03-23] MEDS: Normal Saline 500 ML IV (16:21)
[2025-03-23] MEDS: Ondansetron O.D.T. 4 MG TABEF PO (20:28)
[2025-03-23] MEDS: VANCOMYCIN/WATER (PEG) 1.25 GM/250 ML BAG IVPB (21:43)
[2025-03-24] VITALS (46 sets, daily range): BP systolic 99–125; BP diastolic 54–65; PULSE 90–127; RESP 15–36; TEMP 36.5–37.3; O2SAT 87–97
[2025-03-24] MEDS: Prochlorperazine 10 MG TAB PO (00:38)
[2025-03-24] MEDS: ACYCLOVIR SODIUM 700 MG in Normal Saline 250 ML 250 MG IVPB ×3 (01:33→19:14)
[2025-03-24 07:05] LABS: Abs Immature Grans 0.00 10^3/uL (0.0-0.06); HCT 21.4 % (36.0-46.0); Immature Grans % 0.0 %; MCH 28.5 pg (27.0-33.0); MCHC 31.3 % (32.0-36.0); MCV 91 fL (80-95); MPV 9.3 fL (8.0-11.0); RBC 2.35 10^6/uL (3.93-5.22); RDW 16.0 % (11.7-14.6); RDW-SD 53.1 fL
[2025-03-24 07:23] LABS: HGB 6.7 g/dL (11.2-15.7); Platelet Count 85 10^3/uL (130-400); RBC Morphology Normal; WBC 1.21 10^3/uL (4.4-10.8)
[2025-03-24 07:30] LABS: ALT 33 U/L (14-59); AST 24 U/L (15-37); Albumin 2.1 g/dL (3.4-5.0); Alkaline Phosphatase 51 U/L (46-116); Anion Gap 6.5 mmol/L (3-11); BUN 12 mg/dL (7-18); Bilirubin, Total 0.5 mg/dL (0.2-1.0); CO2 26.5 mmol/L (21.0-32.0); Calcium 8.5 mg/dL (8.5-10.1); Chloride 108 mmol/L (98-107); Estimated GFR 98.93 (mL/min/1.73m2); Glucose 121 mg/dL (74-106); Magnesium 1.3 mg/dL (1.8-2.4); Potassium 4.2 mmol/L (3.5-5.1); Sodium 141 mmol/L (136-145); Total Protein 5.9 g/dL (6.4-8.2)
[2025-03-24] MEDS: Simvastatin 20 MG TAB PO (08:14)
[2025-03-24] MEDS: Cholecalciferol (Vitamin D3) 1,000 UNIT TAB 1000 UNITS PO (08:14)
[2025-03-24] MEDS: Potassium Chloride 20 MEQ TABCR 40 MEQ PO ×2 (08:15→19:14)
[2025-03-24] MEDS: Omega-3 Fatty Acids 1000 MG CAP PO (08:15)
[2025-03-24] MEDS: Multivitamin TAB 1 TAB PO (08:15)
[2025-03-24] MEDS: Magnesium Oxide 400 MG TAB PO ×2 (08:15→19:14)
[2025-03-24] MEDS: Normal Saline Flush 10 ML SYR IVP ×2 (08:15→08:16)
[2025-03-24] MEDS: CEFEPIME 2 GM in Normal Saline 100 ML IVPB ×2 (08:17→16:38)
--- NOTE | 2025-03-24 08:40 | PDOC.CMPRO ---
Date of service: 03/24/25 Time of Service: 08:40 Care Management Progress Note Progress Note Text Progress Note Text: Jyoti was sitting up in a chair when CM met with her. She was pleasant in interaction and agreeable to conversation. Jyoti was admitted with sepsis, presumably from pneumonia. She has been afebrile since Monday night, however her ANC continues to decrease, secondary to her chemotherapy and she remains tachycardic. Jyoti does not use home oxygen at baseline, however has required 2 to 3 L/min to maintain her O2 saturation >90%. Jyoti shared that she has been getting chemotherapy every 3 weeks, She stated each treatment brings new symptoms to deal with including nausea and vomiting, muscle and joint aches, peripheral neuropathy and fatigue. She did say that she has one normal week between the treatments. Discharge Potential Discharge Needs: PCP F/U Appt Anticipated Barriers to Discharge: None Identified Patient/Family Education Needs: Review discharge instructions, discuss Ask Me Three Transportation: Private vehicle Plan: Anticipate Jyoti will be discharged home with a resumption of home health services for nursing once medically ready. She will follow up with her community providers and plan of care. She will transport via private vehicle by her . CM will continue to follow. Social Determinants of Health Screening Social Determinants of health last assessed in clinic: 03/24/25 Will the Patient Participate in the Screening?: Yes Do you worry about having a steady place to live?: no Problems where you live: no known problems In the past 12 months, have you had to go without electric, gas, oil or water in your home?: no 1. Within the past 12 months, we worried whether our food would run out before we got money to buy more.: Never true 2. Within the past 12 months, the food we bought just didn't last and we didn't have money to get more.: Never true Has lack of transportation kept you from medical appointments or from doing things needed for daily living?: no Has anyone in your life made you feel unsafe or unsupported?: no How hard is it for you to pay for the very basics like food, housing, medical care, and heating? Would you say it is:: Not hard at all Do you want help finding or keeping work or a job?: I do not need or want help If for any reason you need help with day-to-day activities such as bathing, preparing meals, shopping, managing finances, etc., do you get the help you need?: I don?t need any help How often do you feel lonely or isolated from those around you?: Never Do you speak a language other than [place] at home?: No Does the patient want assistance with any of the above?: No
--- NOTE | 2025-03-24 08:54 | PGE_ITS ---
Date of Service Date of service: 03/24/25 Time of Service: 08:54 Assessment and Plan Assessment and plan (1) Neutropenia with fever: Start date: 03/22/25 Status: Acute Assessment and plan: -temp of 100.4 in ED, last fever 102.7oF 20:33 on 03/22 -ANC initially 23 -ANC down to 90 on 03/23; previous physician discussion with [facility] peer support specialist-onc who agrees with plan of continued iv abx until anc greater than 500. Anc is most likely 2/2 dianna from recent chemo -ANC 80 on 03/24 -continue cefepime and vanc (2) Pleural effusion: Start date: 03/22/25 Status: Acute Assessment and plan: -initally reported that patient was s/p thoracentesis with Pleur-evac placement, though later confirmed with lab that no fluid sample was sent -CXR did not show any signs of effusion in ED (3) Thrombocytopenia due to drugs: Start date: 03/22/25 Status: Acute Assessment and plan: -This most likely is secondary to chemotherapy -Recommendations from peer support specialist/onc are to give heparin as long as plt are over 50. (4) Stage IV adenocarcinoma of endometrium: Status: Chronic Assessment and plan: -Endometrial bleeding in October 2024 with positive biopsy revealing high-grade endometrial adenocarcinoma -she has completed her fourth cycle initially diagnosed with local mets and retroperitoneal mets with malignant pleural effusion -Palliative consult ordered (5) Type 2 diabetes mellitus with peripheral neuropathy: Status: Chronic Assessment and plan: -SSI, CCD (6) Anemia: Status: Chronic Assessment and plan: - Likely in the setting of pancytopenia with low platelets and white count in the setting of cancer and chemotherapy as noted above - Hemoglobin on admission was 9, was found to be 6.7 on the morning of 03/24/2025 - Will repeat H&H in the afternoon 03/24/2025 and transfuse if below 7 (7) Hypertension: Status: Chronic Assessment and plan: Continue outpatient medical therapy. Adjust as needed. (8) Depression: Assessment and plan: Continue outpatient medical therapy. Subjective Subjective Interval history since last seen: Patient states that she is doing well today, and understands the plan to continue antibiotics while waiting for her absolute neutrophil count to improve. Exam Narrative Exam Narrative: Fatigued appearing female laying in bed in no acute distress, nasal cannula in place 1 L, ANO x 4, heart regular rhythm, lungs clear to auscultation bilaterally, abdomen soft, nontender, nondistended Objective Last Vital Signs Temp 98.1 F 03/24/25 05:43 Pulse 95 H 03/24/25 07:30 Resp 23 03/24/25 07:30 BP 102/60 03/24/25 05:43 Pulse Ox 91 L 03/24/25 07:30 Laboratory Results - last 24 hr 03/22/25 03/23/25 03/24/25 05:17 09:10 05:30 WBC 1.21 L* RBC 2.35 L Hgb 6.7 L* Hct 21.4 L MCV 91 MCH 28.5 MCHC 31.3 L RDW 16.0 H Plt Count 85 L MPV 9.3 Immature Gran % 0.0 Neutrophils % 6.7 Lymphocytes % 66.9 Monocytes % 25.6 Eosinophils % 0.8 Basophils % 0.0 Nucleated RBC % 0.0 Absolute Neutrophils 0.08 L* Absolute Lymphocytes 0.81 L Absolute Monocytes 0.31 Absolute Eosinophils 0.01 Absolute Basophils 0.00 RBC Morphology Normal Sodium 141 Potassium 4.2 Chloride 108 H Carbon Dioxide 26.5 Anion Gap 6.5 BUN 12 Creatinine 0.6 Est GFR (CKD-EPI 2020) 98.93 Glucose 121 H Calcium 8.5 Magnesium 1.3 L Total Bilirubin 0.5 AST 24 ALT 33 Alkaline Phosphatase 51 Total Protein 5.9 L Albumin 2.1 L Fluid Type Cancelled Fluid Source Cancelled Fluid Color Cancelled Fluid Clarity Cancelled Fluid WBC Cancelled Fld Polynuclear WBCs % Cancelled Fluid Mononuclear Cell Cancelled Fluid Other Cells Cancelled Fluid Glucose Cancelled Fluid Total Protein Cancelled Fluid Albumin Cancelled Fluid LDH Cancelled Vancomycin Trough 13.1 Path Cons Comment Cancelled Time Spent with Patient Time Spent with Patient: >50 minutes Time was spent: preparing to see the patient(eg.review tests), obtaining and/or reviewing separately otained hiistory, ordering medications,tests, procedures, referring, communicating with other health client care representative, indepentently interpreting results, counseling the patient and care coordination
[2025-03-24] MEDS: VANCOMYCIN/WATER (PEG) 1.25 GM/250 ML BAG IVPB ×2 (11:44→21:59)
[2025-03-24] MEDS: Acetaminophen 325 MG TAB 650 MG PO ×2 (11:53→21:59)
[2025-03-24] MEDS: Heparin 5,000 UNITS/ML VIAL 5000 UNITS SC (11:54)
[2025-03-24] MEDS: Insulin Aspart 300 UNITS/3 ML PEN SC ×3 (11:59→22:01)
[2025-03-24 14:14] LABS: HCT 27.2 % (36.0-46.0); HGB 8.7 g/dL (11.2-15.7)
[2025-03-25] VITALS (17 sets, daily range): BP systolic 104–137; BP diastolic 54–94; PULSE 95–133; RESP 10–28; TEMP 35.7–37.3; O2SAT 93–96
[2025-03-25] MEDS: Heparin 5,000 UNITS/ML VIAL 5000 UNITS SC ×2 (00:33→11:36)
[2025-03-25] MEDS: CEFEPIME 2 GM in Normal Saline 100 ML IVPB ×3 (00:39→15:20)
[2025-03-25] MEDS: ACYCLOVIR SODIUM 700 MG in Normal Saline 250 ML 250 MG IVPB ×3 (01:55→18:48)
[2025-03-25] MEDS: Acetaminophen 325 MG TAB 650 MG PO ×4 (02:08→20:42)
[2025-03-25] MEDS: Normal Saline Flush 10 ML SYR IVP ×7 (05:43→22:41)
[2025-03-25 06:50] LABS: Abs Immature Grans 0.00 10^3/uL (0.0-0.06); HCT 21.1 % (36.0-46.0); Immature Grans % 0.0 %; MCH 28.0 pg (27.0-33.0); MCHC 30.8 % (32.0-36.0); MCV 91 fL (80-95); MPV 10.3 fL (8.0-11.0); RBC 2.32 10^6/uL (3.93-5.22); RDW 16.0 % (11.7-14.6); RDW-SD 53.4 fL
[2025-03-25 06:57] LABS: HGB 6.5 g/dL (11.2-15.7); WBC 1.22 10^3/uL (4.4-10.8)
[2025-03-25 07:05] LABS: ALT 45 U/L (14-59); AST 35 U/L (15-37); Albumin 2.0 g/dL (3.4-5.0); Alkaline Phosphatase 65 U/L (46-116); Anion Gap 6.6 mmol/L (3-11); BUN 11 mg/dL (7-18); Bilirubin, Total 0.4 mg/dL (0.2-1.0); CO2 25.4 mmol/L (21.0-32.0); Calcium 8.7 mg/dL (8.5-10.1); Chloride 110 mmol/L (98-107); Estimated GFR 98.93 (mL/min/1.73m2); Glucose 152 mg/dL (74-106); Magnesium 1.1 mg/dL (1.8-2.4); Potassium 4.2 mmol/L (3.5-5.1); Sodium 142 mmol/L (136-145); Total Protein 6.0 g/dL (6.4-8.2)
[2025-03-25 07:22] LABS: Platelet Count 83 10^3/uL (130-400)
[2025-03-25] MEDS: Cholecalciferol (Vitamin D3) 1,000 UNIT TAB 1000 UNITS PO (08:09)
[2025-03-25] MEDS: Omega-3 Fatty Acids 1000 MG CAP PO (08:09)
[2025-03-25] MEDS: Simvastatin 20 MG TAB PO (08:09)
[2025-03-25] MEDS: Potassium Chloride 20 MEQ TABCR 40 MEQ PO ×2 (08:09→20:23)
[2025-03-25] MEDS: Multivitamin TAB 1 TAB PO (08:09)
[2025-03-25] MEDS: Magnesium Oxide 400 MG TAB PO ×2 (08:09→20:23)
[2025-03-25] MEDS: Insulin Aspart 300 UNITS/3 ML PEN SC ×4 (08:11→22:37)
[2025-03-25] MEDS: Docusate Sodium 100 MG CAP PO (08:36)
--- NOTE | 2025-03-25 08:59 | CMPROGNOTE_ITS ---
Date of service: 03/25/25 Time of Service: 08:59 Care Management Progress Note Progress Note Text Progress Note Text: Jyoti was sitting up in bed when CM met with her. She stated she was feeling better and looked much brighter than yesterday. Jyoti was admitted with neutropenic fever. Per her provider, she will need to remain hospitalized until her ANC reached 0.5. Today it was 0.12, a slight increase from yesterday's which was.08. Jyoti informed CM that she had her partially completed advanced directives brought to the hospital so that she could hopefully complete them and have them filed. CM reviewed the documents. They will need to be rewritten as there are several areas that were crossed out and a date was entered which will not be reflective of when they are completed. CM will revise the documents with Jyoti in the morning. Discharge Potential Discharge Needs: PCP F/U Appt Anticipated Barriers to Discharge: None Identified Patient/Family Education Needs: Review discharge instructions, discuss Ask Me Three Transportation: Private vehicle Plan: Anticipate Jyoti will be discharged home with a resumption of home health services for nursing once medically ready. She will follow up with her community providers and plan of care. She will transport via private vehicle by her . CM will continue to follow. Social Determinants of Health Screening Social Determinants of health last assessed in clinic: 03/25/25 Will the Patient Participate in the Screening?: Yes Do you worry about having a steady place to live?: no Problems where you live: no known problems In the past 12 months, have you had to go without electric, gas, oil or water in your home?: no 1. Within the past 12 months, we worried whether our food would run out before we got money to buy more.: Never true 2. Within the past 12 months, the food we bought just didn't last and we didn't have money to get more.: Never true Has lack of transportation kept you from medical appointments or from doing things needed for daily living?: no Has anyone in your life made you feel unsafe or unsupported?: no How hard is it for you to pay for the very basics like food, housing, medical care, and heating? Would you say it is:: Not hard at all Do you want help finding or keeping work or a job?: I do not need or want help If for any reason you need help with day-to-day activities such as bathing, preparing meals, shopping, managing finances, etc., do you get the help you need?: I don?t need any help How often do you feel lonely or isolated from those around you?: Never Do you speak a language other than [place] at home?: No Does the patient want assistance with any of the above?: No
[2025-03-25] MEDS: VANCOMYCIN/WATER (PEG) 1.25 GM/250 ML BAG IVPB ×2 (09:41→22:39)
--- NOTE | 2025-03-25 10:36 | PGE_ITS ---
Date of Service Date of service: 03/25/25 Time of Service: 10:36 Assessment and Plan Assessment and plan (1) Neutropenia with fever: Start date: 03/22/25 Status: Acute Assessment and plan: -temp of 100.4 in ED, last fever 102.7oF 20:33 on 03/22 -ANC initially 23 -ANC down to 90 on 03/23; previous physician discussion with [facility] tariff inspector-onc who agrees with plan of continued iv abx until anc greater than 500. Anc is most likely 2/2 dianna from recent chemo -ANC 80 on 03/24, 100 on 03/25 -continue cefepime and vanc (2) Pleural effusion: Start date: 03/22/25 Status: Acute Assessment and plan: -initally reported that patient was s/p thoracentesis with Pleur-evac placement, though later confirmed with lab that no fluid sample was sent -CXR did not show any signs of effusion in ED (3) Thrombocytopenia due to drugs: Start date: 03/22/25 Status: Acute Assessment and plan: -This most likely is secondary to chemotherapy -Recommendations from tariff inspector/onc are to give heparin as long as plt are over 50. (4) Stage IV adenocarcinoma of endometrium: Status: Chronic Assessment and plan: -Endometrial bleeding in October 2024 with positive biopsy revealing high-grade endometrial adenocarcinoma -she has completed her fourth cycle initially diagnosed with local mets and retroperitoneal mets with malignant pleural effusion -Palliative consult ordered (5) Type 2 diabetes mellitus with peripheral neuropathy: Status: Chronic Assessment and plan: -SSI, CCD (6) Anemia: Status: Chronic Assessment and plan: - Likely in the setting of pancytopenia with low platelets and white count in the setting of cancer and chemotherapy as noted above - Hemoglobin on admission was 9, was found to be 6.7 on the morning of 03/24/2025 - Repeat H&H in the afternoon of 03/24/2025 showed hemoglobin of 8.7, leading to suspicion of issue with morning lab draw. This occurred again on the morning of 03/25/2025 with hemoglobin of 6.5 - Will follow-up afternoon CBC with differential to also assess if morning lab draw leading to falsely low ANC (7) Hypertension: Status: Chronic Assessment and plan: Continue outpatient medical therapy. Adjust as needed. (8) Depression: Assessment and plan: Continue outpatient medical therapy. Subjective Subjective Interval history since last seen: Patient states that she is feeling well today is encouraged that her ANC has improved from previous day. Exam Narrative Exam Narrative: Fatigued appearing female laying in bed in no acute distress, nasal cannula in place 1 L, ANO x 4, heart regular rhythm, lungs clear to auscultation bilaterally, abdomen soft, nontender, nondistended Objective Last Vital Signs Temp 98.8 F 03/25/25 08:48 Pulse 102 H 03/25/25 08:48 Resp 26 H 03/25/25 08:48 BP 104/71 03/25/25 08:48 Pulse Ox 97 03/24/25 16:41 Laboratory Results - last 24 hr 03/24/25 03/25/25 03/25/25 14:04 05:30 05:35 WBC 1.22 L* RBC 2.32 L Hgb 8.7 L D 6.5 L* D Hct 27.2 L 21.1 L MCV 91 MCH 28.0 MCHC 30.8 L RDW 16.0 H Plt Count 83 L MPV 10.3 Immature Gran % 0.0 Neutrophils % 8.2 Lymphocytes % 64.8 Monocytes % 25.4 Eosinophils % 0.8 Basophils % 0.8 Nucleated RBC % 0.0 Absolute Neutrophils 0.10 L* Absolute Lymphocytes 0.79 L Absolute Monocytes 0.31 Absolute Eosinophils 0.01 Absolute Basophils 0.01 Sodium 142 Cancelled Potassium 4.2 Cancelled Chloride 110 H Cancelled Carbon Dioxide 25.4 Cancelled Anion Gap 6.6 Cancelled BUN 11 Cancelled Creatinine 0.6 Cancelled Est GFR (CKD-EPI 2020) 98.93 Cancelled Glucose 152 H Cancelled Calcium 8.7 Cancelled Magnesium 1.1 L Total Bilirubin 0.4 AST 35 ALT 45 Alkaline Phosphatase 65 Total Protein 6.0 L Albumin 2.0 L Time Spent with Patient Time Spent with Patient: >50 minutes Time was spent: preparing to see the patient(eg.review tests), obtaining and/or reviewing separately otained hiistory, ordering medications,tests, procedures, referring, communicating with other health pediatric care coordinator, indepentently interpreting results, counseling the patient and care coordination
[2025-03-25 12:12] LABS: Abs Immature Grans 0.01 10^3/uL (0.0-0.06); Immature Grans % 0.9 %; MCH 28.2 pg (27.0-33.0); MCHC 31.1 % (32.0-36.0); MCV 91 fL (80-95); MPV 9.0 fL (8.0-11.0); RBC 2.27 10^6/uL (3.93-5.22); RDW 15.9 % (11.7-14.6); RDW-SD 52.8 fL
[2025-03-25 12:30] LABS: HCT 20.6 % (36.0-46.0)
[2025-03-25 12:31] LABS: HGB 6.4 g/dL (11.2-15.7); Platelet Count 78 10^3/uL (130-400); RBC Morphology Normal; WBC 1.07 10^3/uL (4.4-10.8)
--- NOTE | 2025-03-25 14:43 | CHAPLAIN ---
Jyoti was resting in bed reading a book on her Lexx when I visited. She is very pleasant and said she's been here four days, and slept much of the first 24 hours, but is having a hard time sleeping at night now. She is having chemo treatments for metastatic endometrial cancer. Her works in [employer] at [employer]. I will continue to visit.
--- NOTE | 2025-03-25 16:43 | W.PC.ACHO ---
Registration Status: ADM IN Primary Language: Preferred Language: Swedish ED Information & Data Chief Complaint Fever 03/22/25 03:43 Triage Note Pt undergoing chemo 03/22/25 01:55 infusions for uterine ca w/ mets. Last treatment 03/13 and states she 'hasn't felt great all day', but woke up around 3hrs [employer] feeling chills and hot alternating and febrile to 38.7C. Also, new stiffness and discomfort in neck and down into R shoulder. No meds [employer]. Medical / Surgical History (Last Reviewed 03/22/25 @ 07:33 by Bay Chen) Accessory skin tags Seborrheic keratosis, inflamed Back pain Headache Chronic back pain Ocular hypertension Hyperlipidemia Depression Snoring (02/05/18) Neoplasm of unspecified nature of bone, soft tissue, and skin (02/05/18) (Last Reviewed 03/22/25 @ 07:33 by Bay Chen) History of colonoscopy (~02/2022) History of tubal ligation History of cholecystectomy Most Recent Vital Signs Temperature 37.1 C 03/25/25 12:52 Temperature Source Tympanic 03/25/25 12:52 Pulse 102 H 03/25/25 12:52 Pulse 102 H 03/25/25 12:39 Respiratory Rate 17 03/25/25 12:52 Respiratory Effort Normal 03/22/25 06:59 Respiratory Depth Normal 03/22/25 06:59 Respiratory Pattern Normal 03/22/25 06:59 Blood Pressure 113/64 03/25/25 12:52 Blood Pressure Mean 80 03/25/25 12:52 Blood Pressure Position Sitting 03/22/25 06:59 Pulse Oximetry 96 03/25/25 12:52 Oxygen Delivery Method Nasal Cannula 03/25/25 13:14 Oxygen Flow Rate 2 03/25/25 13:14 Pain Level 4 03/25/25 08:48 Comment After blankets were off for about 10 minutes 03/22/25 20:41 Comment vitals taken by prior shift 03/22/25 06:37 Allergies No Known Allergies Allergy (Verified 03/22/25 02:00) Precautions Isolation Protective precaution 03/22/25 02:03 Active Medications Generic Name Dose Route Start Last Admin Trade Name Freq PRN Reason Stop Dose Admin Acetaminophen 650 mg 03/22/25 07:38 03/25/25 15:33 Acetaminophen 325 Mg Tab PO 650 mg Q4H PRN PRN Administration Cholecalciferol 1,000 units 03/23/25 08:30 03/25/25 08:09 Cholecalciferol (Vitamin D3) 1,000 Unit Tab PO 1,000 units DAILY SILVIANO Administration Docusate Sodium 100 mg 03/22/25 07:38 03/25/25 08:36 Docusate Sodium 100 Mg Cap PO 100 mg TID PRN PRN Administration Fish Oil 1,000 mg 03/23/25 08:30 03/25/25 08:09 [place]-3 Fatty Acids 1000 Mg Cap PO 1,000 mg DAILY SILVIANO Administration Heparin Sodium (Porcine) 5,000 units 03/23/25 12:00 03/25/25 11:36 Heparin 5,000 Units/Ml Vial SC 5,000 units Q12H SILVIANO Administration Cefepime HCl 2 gm/ Sodium 100 mls @ 200 mls/hr 03/22/25 08:00 03/25/25 15:20 Chloride IVPB 200 mls/hr Q8H SILVIANO Administration Acyclovir Sodium 700 mg/ 250 mls @ 250 mls/hr 03/22/25 10:00 03/25/25 11:23 Sodium Chloride IVPB Infused Q8H SILVIANO Infusion Vancomycin/PEG/NADA/Lysine/Water 1.25 gm in 250 mls @ 166.667 mls/hr 03/23/25 22:00 03/25/25 11:23 Vancocin Injection IVPB Infused Q12H SILVIANO Infusion Sodium Chloride 500 mls @ 0 mls/hr 03/23/25 16:17 03/23/25 16:21 Saline 500ml Bag IV 0.01 mls/hr PRN PRN Administration As Directed Insulin Aspart 0 units 03/22/25 08:00 03/25/25 11:43 Insulin Aspart 300 Units/3 Ml Pen SC 4 unit 0800,1200,1700,2200 SILVIANO Administration Protocol Magnesium Oxide 400 mg 03/23/25 12:00 03/25/25 08:09 Magnesium Oxide 400 Mg Tab PO 400 mg BID SILVIANO Administration Multivitamins 1 tab 03/22/25 08:30 03/25/25 08:09 Multivitamin Tab PO 1 tab DAILY SILVIANO Administration Ondansetron HCl 4 mg 03/22/25 07:38 03/23/25 20:28 Ondansetron O.D.T. 4 Mg Tabef PO 4 mg Q6H PRN PRN Administration Pt's Own Med 2 each 03/22/25 20:00 03/25/25 09:22 Lifitegrast [Xiidra] OP Not Given 5 % Dropperette BID SILVIANO Potassium Chloride 40 meq 03/23/25 12:00 03/25/25 08:09 Potassium Chloride 20 Meq Tabcr PO 40 meq BID SILVIANO Administration Prochlorperazine Maleate 10 mg 03/22/25 07:38 03/24/25 00:38 Prochlorperazine 10 Mg Tab PO 10 mg Q6H PRN PRN Administration Simvastatin 20 mg 03/22/25 08:30 03/25/25 08:09 Simvastatin 20 Mg Tab PO 20 mg DAILY SILVIANO Administration Sodium Chloride 0 ml 03/22/25 05:11 03/25/25 15:21 Normal Saline Flush 10 Ml Syr IVP 40 ml PRN PRN Administration Sodium Chloride 0 ml 03/23/25 20:00 03/25/25 08:23 Normal Saline Flush 10 Ml Syr IVP 60 ml BID SILVIANO Administration IV IV Catheter Type [Right Saline Lock Forearm] IV Catheter Type [Right Port-a-cath (double) Subclavian] IV Catheter Gauge [Right 20 Forearm] IV Catheter Gauge [Right 22 Subclavian] Diagnostics 03/25/25 03/25/25 03/25/25 Range/Units 12:03 09:47 05:35 WBC 1.07 L* (4.4-10.8) 10^3/uL RBC 2.27 L (3.93-5.22) 10^6/uL Hgb 6.4 L* (11.2-15.7) g/dL Hct 20.6 L* (36.0-46.0) % MCV 91 (80-95) fL MCH 28.2 (27.0-33.0) pg MCHC 31.1 L (32.0-36.0) % RDW 15.9 H (11.7-14.6) % Plt Count 78 L (130-400) 10^3/uL MPV 9.0 (8.0-11.0) fL Immature Gran % 0.9 % Neutrophils % 11.4 % Lymphocytes % 60.7 % Monocytes % 25.2 % Eosinophils % 0.9 % Basophils % 0.9 % Nucleated RBC % 0.0 (0.0-0.3) % Absolute Neutrophils 0.12 L* (1.2-6.7) 10^3/uL Absolute Lymphocytes 0.65 L (1.2-3.4) 10^3/uL Absolute Monocytes 0.27 (0.1-0.8) 10^3/uL Absolute Eosinophils 0.01 (0.0-0.7) 10^3/uL Absolute Basophils 0.01 (0.0-0.2) 10^3/uL RBC Morphology Normal Sodium Cancelled (136-145) mmol/L Potassium Cancelled (3.5-5.1) mmol/L Chloride Cancelled (98-107) mmol/L Carbon Dioxide Cancelled (21.0-32.0) mmol/L Anion Gap Cancelled (3-11) mmol/L BUN Cancelled (7-18) mg/dL Creatinine Cancelled (0.55-1.02) mg/dL Est GFR (CKD-EPI 2020) Cancelled (mL/min/1.73m2) Glucose Cancelled (74-106) mg/dL Calcium Cancelled (8.5-10.1) mg/dL Magnesium (1.8-2.4) mg/dL Total Bilirubin (0.2-1.0) mg/dL AST (15-37) U/L ALT (14-59) U/L Alkaline Phosphatase (46-116) U/L Total Protein (6.4-8.2) g/dL Albumin (3.4-5.0) g/dL Vancomycin Trough Pending Blood Type Recheck 03/25/25 Range/Units 05:30 WBC 1.22 L* (4.4-10.8) 10^3/uL RBC 2.32 L (3.93-5.22) 10^6/uL Hgb 6.5 L* D (11.2-15.7) g/dL Hct 21.1 L (36.0-46.0) % MCV 91 (80-95) fL MCH 28.0 (27.0-33.0) pg MCHC 30.8 L (32.0-36.0) % RDW 16.0 H (11.7-14.6) % Plt Count 83 L (130-400) 10^3/uL MPV 10.3 (8.0-11.0) fL Immature Gran % 0.0 % Neutrophils % 8.2 % Lymphocytes % 64.8 % Monocytes % 25.4 % Eosinophils % 0.8 % Basophils % 0.8 % Nucleated RBC % 0.0 (0.0-0.3) % Absolute Neutrophils 0.10 L* (1.2-6.7) 10^3/uL Absolute Lymphocytes 0.79 L (1.2-3.4) 10^3/uL Absolute Monocytes 0.31 (0.1-0.8) 10^3/uL Absolute Eosinophils 0.01 (0.0-0.7) 10^3/uL Absolute Basophils 0.01 (0.0-0.2) 10^3/uL RBC Morphology Sodium 142 (136-145) mmol/L Potassium 4.2 (3.5-5.1) mmol/L Chloride 110 H (98-107) mmol/L Carbon Dioxide 25.4 (21.0-32.0) mmol/L Anion Gap 6.6 (3-11) mmol/L BUN 11 (7-18) mg/dL Creatinine 0.6 (0.55-1.02) mg/dL Est GFR (CKD-EPI 2020) 98.93 (mL/min/1.73m2) Glucose 152 H (74-106) mg/dL Calcium 8.7 (8.5-10.1) mg/dL Magnesium 1.1 L (1.8-2.4) mg/dL Total Bilirubin 0.4 (0.2-1.0) mg/dL AST 35 (15-37) U/L ALT 45 (14-59) U/L Alkaline Phosphatase 65 (46-116) U/L Total Protein 6.0 L (6.4-8.2) g/dL Albumin 2.0 L (3.4-5.0) g/dL Vancomycin Trough Blood Type Recheck Cancelled 03/22/25 04:01 Blood Culture - Preliminary Blood NO GROWTH 72 HOURS 03/22/25 02:24 Blood Culture - Preliminary Blood NO GROWTH 72 HOURS [id number] Documentation Fingerstick Glucose Start: 03/22/25 07:38 Freq: AC & HS Status: Active Protocol: Activity Type Activity Date Activity User E-sign Co-sign Detail Recorded Client Recorded Date Recorded By Document 03/25/25 11:40 MARIA A COLORADO(3) [id number] 03/25/25 11:41 MARIA A DAJUANITO(4) Intake and Output - 24 Hour Total 03/22/25 01:51 thru 03/25/25 15:41 Intake Total 57543 Output Total 7425 Balance 3248 Weight 97.9 kg Intake: IV 7920 Oral 2753 Output: Urine 7425 Other: Urine Color Yellow Urine Appearance Clear Urine Odor None Comment pt had voided x2 Stool Size Large Stool Characteristics Soft Liquid Falls Risk Assessment History of Falls No History 03/22/25 06:59 Contributing Factors No Factors 03/22/25 06:59 Ambulatory Aids Independent 03/22/25 06:59 Tubes/Lines With any additional score 03/22/25 06:59 Gait Evaluation No gait disturbance 03/22/25 06:59 Cognition No cognitive impairment 03/22/25 06:59 Fall Total Score 20 03/22/25 06:59 Level of Risk Standard/Low Risk 03/22/25 06:59 Problems (Last Reviewed 03/22/25 @ 07:33 by Bay Chen) Anemia (Chronic) Hypokalemia (Acute) Thrombocytopenia due to drugs (Acute) Hypomagnesemia (Acute) Neutropenia with fever (Acute) Pleural effusion (Acute) Stage IV adenocarcinoma of endometrium (Chronic) Type 2 diabetes mellitus with peripheral neuropathy (Chronic) Hypertension (Chronic) v v v v v v v v v Sending and/or Receiving Nurses: Please use comment section below to note any information pertinent to the patient hand-off not included above. Information / Comments: Report received from:angel at [id number]
[2025-03-25] MEDS: MAGNESIUM SULFATE 2 GM/50 ML BAG IV_INF (17:24)
[2025-03-25 17:31] LABS: HCT 25.6 % (36.0-46.0); HGB 8.0 g/dL (11.2-15.7)
[2025-03-25 20:51] LABS: Vancomycin, Trough 18.0 ug/mL (10.0-20.0)
[2025-03-26] VITALS (7 sets, daily range): BP systolic 100–126; BP diastolic 53–73; PULSE 98–114; RESP 16–22; TEMP 36–36.9; O2SAT 88–93
[2025-03-26] MEDS: CEFEPIME 2 GM in Normal Saline 100 ML IVPB ×4 (00:57→23:36)
[2025-03-26] MEDS: Heparin 5,000 UNITS/ML VIAL 5000 UNITS SC ×3 (00:58→23:36)
[2025-03-26] MEDS: ACYCLOVIR SODIUM 700 MG in Normal Saline 250 ML 250 MG IVPB ×3 (01:49→18:05)
[2025-03-26] MEDS: Acetaminophen 325 MG TAB 650 MG PO ×3 (03:14→18:11)
[2025-03-26] MEDS: Ondansetron O.D.T. 4 MG TABEF PO (03:14)
[2025-03-26 06:51] LABS: Abs Immature Grans 0.00 10^3/uL (0.0-0.06); HCT 21.3 % (36.0-46.0); Immature Grans % 0.0 %; MCH 28.2 pg (27.0-33.0); MCHC 31.0 % (32.0-36.0); MCV 91 fL (80-95); MPV 9.7 fL (8.0-11.0); RBC 2.34 10^6/uL (3.93-5.22); RDW 16.2 % (11.7-14.6); RDW-SD 53.4 fL
[2025-03-26 07:24] LABS: HGB 6.6 g/dL (11.2-15.7); WBC 1.35 10^3/uL (4.4-10.8)
[2025-03-26 07:25] LABS: Hypochromasia 3+; Platelet Count 90 10^3/uL (130-400)
[2025-03-26] MEDS: Magnesium Oxide 400 MG TAB PO ×2 (07:45→21:18)
[2025-03-26] MEDS: Omega-3 Fatty Acids 1000 MG CAP PO (07:45)
[2025-03-26] MEDS: Simvastatin 20 MG TAB PO (07:45)
[2025-03-26] MEDS: Cholecalciferol (Vitamin D3) 1,000 UNIT TAB 1000 UNITS PO (07:45)
[2025-03-26] MEDS: Multivitamin TAB 1 TAB PO (07:46)
[2025-03-26] MEDS: Potassium Chloride 20 MEQ TABCR 40 MEQ PO ×2 (07:46→21:18)
[2025-03-26] MEDS: Normal Saline Flush 10 ML SYR IVP ×3 (07:46→21:17)
--- NOTE | 2025-03-26 08:30 | W.PM.PROGNOT ---
Date of Service Date of service: 03/26/25 Time of Service: 08:30 Assessment and Plan Assessment and plan (1) Neutropenia with fever: Start date: 03/22/25 Status: Acute Assessment and plan: -temp of 100.4 in ED, last fever 102.7oF 20:33 on 03/22 -ANC initially 23 -ANC down to 90 on 03/23; previous physician discussion with [facility] [place] rotating equipment engineer-onc who agrees with plan of continued iv abx until anc greater than 500. Anc is most likely 2/2 dianna from recent chemo -ANC 80 on 03/24, 100 on 03/25, and 240 on AM 03/26 -continue cefepime and vanc (2) Pleural effusion: Start date: 03/22/25 Status: Acute Assessment and plan: -initally reported that patient was s/p thoracentesis with Pleur-evac placement, though later confirmed with lab that no fluid sample was sent -CXR did not show any signs of effusion in ED (3) Thrombocytopenia due to drugs: Start date: 03/22/25 Status: Acute Assessment and plan: -This most likely is secondary to chemotherapy -Recommendations from rotating equipment engineer/onc are to give heparin as long as plt are over 50. (4) Stage IV adenocarcinoma of endometrium: Status: Chronic Assessment and plan: -Endometrial bleeding in October 2024 with positive biopsy revealing high-grade endometrial adenocarcinoma -she has completed her fourth cycle initially diagnosed with local mets and retroperitoneal mets with malignant pleural effusion -Palliative consult ordered (5) Type 2 diabetes mellitus with peripheral neuropathy: Status: Chronic Assessment and plan: -SSI, CCD (6) Anemia: Status: Chronic Assessment and plan: - Likely in the setting of pancytopenia with low platelets and white count in the setting of cancer and chemotherapy as noted above - Hemoglobin on admission was 9, was found to be 6.7 on the morning of 03/24/2025 - Repeat H&H in the afternoon of 03/24/2025 showed hemoglobin of 8.7, leading to suspicion of issue with morning lab draw. This occurred again on the morning of 03/25/2025 with hemoglobin of 6.5 - Appears to be a pattern of patient's hemoglobin being low when checked with CBC, as hemoglobin was 8 when checked with just an H&H - On morning of 03/26/2025 again patient's hemoglobin down to 6.6 when checked with a CBC, will check afternoon isolated H&H (7) Hypertension: Status: Chronic Assessment and plan: Continue outpatient medical therapy. Adjust as needed. (8) Depression: Assessment and plan: Continue outpatient medical therapy. Subjective Subjective Interval history since last seen: Patient is in good spirits today she is encouraged that her ANC continues to increase. Otherwise she has no other complaints or concerns at this time. Exam Narrative Exam Narrative: Fatigued appearing female laying in bed in no acute distress, nasal cannula in place 1 L, ANO x 4, heart regular rhythm, lungs clear to auscultation bilaterally, abdomen soft, nontender, nondistended Objective Last Vital Signs Temp 97.5 F L 03/26/25 07:12 Pulse 99 H 03/26/25 07:43 Resp 16 03/26/25 07:12 BP 110/64 03/26/25 07:12 Pulse Ox 93 03/26/25 07:43 Laboratory Results - last 24 hr 03/25/25 03/25/25 03/25/25 05:30 09:47 12:03 WBC 1.07 L* RBC 2.27 L Hgb 6.4 L* Hct 20.6 L* MCV 91 MCH 28.2 MCHC 31.1 L RDW 15.9 H Plt Count 78 L MPV 9.0 Immature Gran % 0.9 Neutrophils % 11.4 Lymphocytes % 60.7 Monocytes % 25.2 Eosinophils % 0.9 Basophils % 0.9 Nucleated RBC % 0.0 Absolute Neutrophils 0.12 L* Absolute Lymphocytes 0.65 L Absolute Monocytes 0.27 Absolute Eosinophils 0.01 Absolute Basophils 0.01 RBC Morphology Normal Hypochromasia Vancomycin Trough 18.0 Blood Type Recheck Cancelled 03/25/25 03/26/25 17:20 06:24 WBC 1.35 L* RBC 2.34 L Hgb 8.0 L 6.6 L* Hct 25.6 L 21.3 L MCV 91 MCH 28.2 MCHC 31.0 L RDW 16.2 H Plt Count 90 L MPV 9.7 Immature Gran % 0.0 Neutrophils % 17.8 Lymphocytes % 57.0 Monocytes % 23.0 Eosinophils % 1.5 Basophils % 0.7 Nucleated RBC % 0.0 Absolute Neutrophils 0.24 L* Absolute Lymphocytes 0.77 L Absolute Monocytes 0.31 Absolute Eosinophils 0.02 Absolute Basophils 0.01 RBC Morphology See Below Hypochromasia 3+ Vancomycin Trough Blood Type Recheck Time Spent with Patient Time Spent with Patient: >50 minutes Time was spent: preparing to see the patient(eg.review tests), obtaining and/or reviewing separately otained hiistory, ordering medications,tests, procedures, referring, communicating with other health healthcare corporate account director, indepentently interpreting results, counseling the patient and care coordination
--- NOTE | 2025-03-26 08:51 | CMPROGNOTE_ITS ---
Date of service: 03/26/25 Time of Service: 08:52 Care Management Progress Note Progress Note Text Progress Note Text: Jyoti was sitting up in a chair when CM met with her. She was smiling and seemed to be in good spirits. Jyoti's ANC was up to 0.24 today from 0.12 yesterday. Hopefully it will increase to .5 tomorrow so that she can be discharged. Jyoti had her draft Advanced Directions brought to the hospital for completion. CM met with Jyoti, reviewed the questions and responses and had them signed and witnessed appropriately, A copy was faxed to the [place] [facility] and her PCP and was scanned into her medical record. Jyoti was given the original and several (5) copies. Discharge Potential Discharge Needs: PCP F/U Appt Anticipated Barriers to Discharge: None Identified Patient/Family Education Needs: Review discharge instructions, discuss Ask Me Three Transportation: Private vehicle Plan: Anticipate Jyoti will be discharged home with a resumption of home health services for nursing once medically ready. She will follow up with her community providers and plan of care. She will transport via private vehicle by her . CM will continue to follow. Social Determinants of Health Screening Social Determinants of health last assessed in clinic: 03/25/25 Will the Patient Participate in the Screening?: Unable to obtain Do you worry about having a steady place to live?: no Problems where you live: no known problems In the past 12 months, have you had to go without electric, gas, oil or water in your home?: no Has lack of transportation kept you from medical appointments or from doing things needed for daily living?: no Has anyone in your life made you feel unsafe or unsupported?: no How hard is it for you to pay for the very basics like food, housing, medical care, and heating? Would you say it is:: Not hard at all Do you want help finding or keeping work or a job?: I do not need or want help If for any reason you need help with day-to-day activities such as bathing, pr eparing meals, shopping, managing finances, etc., do you get the help you need?: I don?t need any help How often do you feel lonely or isolated from those around you?: Never Do you speak a language other than Cymro at home?: No Does the patient want assistance with any of the above?: No
[2025-03-26] MEDS: VANCOMYCIN/WATER (PEG) 1.25 GM/250 ML BAG IVPB ×2 (10:26→21:31)
[2025-03-26] MEDS: Insulin Aspart 300 UNITS/3 ML PEN SC ×3 (11:44→22:11)
--- NOTE | 2025-03-26 13:30 | PHA.REVIEW2 ---
Pharmacy Admission Review Admission Clinical Review Admission Pharmacy Review: Hypokalemia (Acute) Thrombocytopenia due to drugs (Acute) Hypomagnesemia (Acute) Neutropenia with fever (Acute) Pleural effusion (Acute) No Known Allergies Allergy (Verified 03/22/25 02:00) Resuscitation Status Full Code Height 5 ft 4.5 in Weight 92.986 kg Comments Comments/Follow Ups: Reach out to provider if we do not get more acyclovir vials in order tomorrow - may need to change therapy Pharmacy Admission Review Renal Dosing Renal Dosing: BUN Cancelled 03/25/25 05:35 Creatinine Cancelled 03/25/25 05:35 Medications needing adjustments: Reviewed (CrCl 61.77 mL/min) List of meds needing interventions: Current medications are okay Anticoagulation Anticoagulation: Hgb 6.6 g/dL (11.2-15.7) L* 03/26/25 06:24 Hct 21.3 % (36.0-46.0) L 03/26/25 06:24 Plt Count 90 10^3/uL (130-400) L 03/26/25 06:24 Creatinine Cancelled 03/25/25 05:35 DVT Prophylaxis: Reviewed (Repeat hgb pending - per provider believes there are issues with patients labs in the morning (see providers progress note)) Medications: Heparin (q12h) Relevant Labs Relevant Labs: Sodium Cancelled 03/25/25 05:35 Potassium Cancelled 03/25/25 05:35 Chloride Cancelled 03/25/25 05:35 Magnesium 1.1 mg/dL (1.8-2.4) L 03/25/25 05:30 ANC 0.24 L* 10^3/uL (1.2-6.7) 0.12 L * 10^3/uL (1.2-6.7) 0.10 L* 10^3/uL (1.2-6.7) 0.08 L* 10^3/uL (1.2-6.7) 0.09 L* 10^3/uL (1.2-6.7) 0.23 L* 10^3/uL (1.2-6.7) 03/26/25 06:24 03/25/25 12:03 03/25/25 05:30 03/24/25 05:30 03/23/25 05:30 03/22/25 02:24 Electrolytes, C-Reactive P, ESR: Reviewed DM Control DM Control: Glucose Cancelled 03/25/25 05:35 Finger Stick Blood Glucose 176 Finger Stick Blood Glucose 176 Finger Stick Blood Glucose 176 Finger Stick Blood Glucose 137 Finger Stick Blood Glucose 137 Finger Stick Blood Glucose 137 DM Control: Reviewed Insulin Dosing, Diabetic Medication: Has order for SS insulin Cardiac Review BP, HR, EF%: Reviewed (BP WNL, HR 103 - has been in high 90s up to 114 this morning) QTc Review QTc: Reviewed (455 from 03/22/25) IV to PO Switch IV Medications: Reviewed (acyclovir, cefepime and vancomycin) Home Meds Home Med List reviewed: Intervened Relevent Home Meds Not ordered & why?: dexamethasone (PRN), Toujeo (on SS insulin), metformin (on SS insulin) and Ozempic (weekly) Order for Xiidra eye drops changed to patients own. Informed nurse that this will have to be brought in if patient wants to use them while inpatient. Current Meds Current Medication Order Review: Reviewed Pharmacy Antibiotic Review Relevant Labs: WBC 1.35 10^3/uL (4.4-10.8) L* 03/26/25 06:24 Temperature 36.4 C Temperature 36.4 C Temperature 36.4 C Microbiology 03/22/25 04:01 Blood Culture - Preliminary Blood NO GROWTH 96 HOURS 03/22/25 02:24 Blood Culture - Preliminary Blood NO GROWTH 96 HOURS Pharmacy Antibiotic Activity: C/S review and Reviewed, no change Comments: Patient is on cefepime, acyclovir and vancomycin, day 5, for sepsis/neutropenia. Current vancomycin dose is 1250mg q12h with predicted AUC of 568 and trough of 15.7. Last level was 18 from 03/25 at 0947, no change in dose. Will repeat level if there are any changes in renal function or if prolonged therapy is required. WBC increased from 1.07. Comments Comments/Follow Ups: Reach out to provider if we do not get more acyclovir vials in order tomorrow - may need to change therapy
[2025-03-26 14:07] LABS: HCT 21.0 % (36.0-46.0); HGB 6.5 g/dL (11.2-15.7)
[2025-03-26 14:30] LABS: HIT ELISA 0.070 OD (<0.400); HIT Interpretation Negative (Negative)
[2025-03-27] MEDS: ACYCLOVIR SODIUM 700 MG in Normal Saline 250 ML 250 MG IVPB (02:53)
[2025-03-27] MEDS: Normal Saline Flush 10 ML SYR IVP ×2 (02:53→08:25)
[2025-03-27 03:30] VITALS: BP 109/46; PULSE 108; RESP 20; TEMP 36.8; O2SAT 89
[2025-03-27] MEDS: Acetaminophen 325 MG TAB 650 MG PO ×2 (03:39→08:21)
[2025-03-27 03:44] VITALS: O2SAT 94
[2025-03-27] MEDS: Ondansetron O.D.T. 4 MG TABEF PO (04:36)
[2025-03-27 06:27] LABS: Abs Immature Grans 0.01 10^3/uL (0.0-0.06); HCT 22.2 % (36.0-46.0); Immature Grans % 0.5 %; MCH 28.9 pg (27.0-33.0); MCHC 31.5 % (32.0-36.0); MCV 92 fL (80-95); MPV 10.5 fL (8.0-11.0); Platelet Count 105 10^3/uL (130-400); RBC 2.42 10^6/uL (3.93-5.22); RDW 16.3 % (11.7-14.6); RDW-SD 54.7 fL; WBC 2.15 10^3/uL (4.4-10.8)
[2025-03-27 06:47] LABS: RBC Morphology Normal
[2025-03-27 06:49] LABS: HGB 7.0 g/dL (11.2-15.7)
[2025-03-27 07:37] VITALS: BP 122/70; PULSE 105; RESP 16; TEMP 35.9; O2SAT 94
[2025-03-27] MEDS: Potassium Chloride 20 MEQ TABCR 40 MEQ PO (08:21)
[2025-03-27] MEDS: Cholecalciferol (Vitamin D3) 1,000 UNIT TAB 1000 UNITS PO (08:21)
[2025-03-27] MEDS: Simvastatin 20 MG TAB PO (08:22)
[2025-03-27] MEDS: Magnesium Oxide 400 MG TAB PO (08:24)
[2025-03-27] MEDS: Omega-3 Fatty Acids 1000 MG CAP PO (08:24)
[2025-03-27] MEDS: Multivitamin TAB 1 TAB PO (08:24)
[2025-03-27 08:25] VITALS: O2SAT 95
[2025-03-27] MEDS: CEFEPIME 2 GM in Normal Saline 100 ML IVPB (08:25)
--- NOTE | 2025-03-27 08:32 | DSE_ITS ---
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 Upon admission Tess tillman was consulted and they recommended continuing broad-spectrum antibiotics until ANC improved above 500. Patient remained on antibiotics and ultimately her ANC improved up to 800 on day of discharge. Also concerns for anemia however, there is seem to be some lab variation in her hemoglobin throughout the day that would not be explained by blood loss or red blood cell production. Ultimately, given that patient remained afebrile and had significant improvement in her ANC count it was determined that she was stable for discharge home. Home Meds and New Rx's Prescriptions: Continued ondansetron 4 mg tablet,disintegrating 4 - 8 mg PO Q8H PRN Patient Comments: place ONE TO TWO tablets ON THE TONGUE every EIGHT hours needed, not TO exceed FOUR tablets PER DAY prochlorperazine maleate 10 mg tablet 10 mg PO Q6H PRN Patient Comments: TAKE ONE TABLET BY MOUTH EVERY 6 HOURS ON schedule FOR THE first THREE DAYS AFTER chemotherapy, THEN take ONE tablet every SIX hours needed FOR NAUSEA AND vomiting dexamethasone 4 mg tablet 4 mg PO BID PRN Patient Comments: TAKE ONE TABLET BY MOUTH TWICE DAILY NEEDED FOR NAUSEA OR FOR VOMITING simvastatin 20 mg tablet 20 mg PO DAILY cholecalciferol (vitamin D3) 25 mcg (1,000 unit) capsule 25 mcg PO DAILY omega-3 fatty acids 500 mg capsule 500 mg PO DAILY multivitamin Tablet 1 tab PO DAILY cetirizine 5 mg tablet 5 mg PO DAILY PRN Ozempic 0.25 mg or 0.5 mg (2 mg/3 mL) pen injector 0.5 mg subcut QWEEK Rx Instructions: on mondays insulin glargine U-300 conc [Toujeo Max U-300 SoloStar] 300 unit/mL (3 mL) insulin pen 12 unit subcut HS Xiidra 5 % dropperette 2 drp ophthalmic (eye) QAM AND QPM Rx Instructions: administer approximately 12 hours apart (DME) Dexcom G7 Sensor Device MISCELLANEOUS Patient Comments: USE DIRECTED metformin 500 mg tablet extended release 24 hr 1,000 mg PO BID Patient Comments: TAKE TWO TABLETS BY MOUTH TWICE DAILY Discharge Instructions Activity:: Activity as Tolerated Equipment/Supplies:: No Equipment Needed Diet:: As Tolerated Discharge Orders Discharge Orders: Discharge Order (Routine); Ordered 03/27/25 Ordered By: Ar Lala DS: Summary Time Spent with Patient providing and/or coordinating discharge services: Greater than 30 minutes Status at Discharge Functional status at discharge: independent ambulation Overall status at discharge: patient is back to baseline Mental Status: mental status grossly normal Speech and Movement: speech and movement normal Mood: congruent mood Affect: normal affect Exam Narrative Exam Narrative: Fatigued appearing female laying in bed in no acute distress, nasal cannula in place 1 L, ANO x 4, heart regular rhythm, lungs clear to auscultation bilaterally, abdomen soft, nontender, nondistended Psych Mental Status: mental status grossly normal Speech and Movement: speech and movement normal Mood: congruent mood Affect: normal affect DS: Data Vitals/I&O Vitals and I&O: Vital Signs Temperature 96.6 F L 03/27/25 07:37 Temperature Source Temporal Artery Scan 03/27/25 07:37 Pulse 105 H 03/27/25 07:37 Pulse 103 H 03/25/25 15:30 Respiratory Rate 16 03/27/25 07:37 Respiratory Effort Normal 03/22/25 06:59 Respiratory Depth Normal 03/22/25 06:59 Respiratory Pattern Normal 03/22/25 06:59 Blood Pressure 122/70 03/27/25 07:37 Blood Pressure Mean 87 03/27/25 07:37 Blood Pressure Position Sitting 03/22/25 06:59 Pulse Oximetry 95 03/27/25 08:25 Oxygen Delivery Method Room Air 03/27/25 08:25 Oxygen Flow Rate 0 03/27/25 08:25 Pain Level 2 03/27/25 07:37 Comment PT stated she has a headache. 03/26/25 23:15 Comment vitals taken by prior shift 03/22/25 06:37 Intake & Output 03/26/25 03/27/25 03/27/25 17:59 05:59 17:59 Intake Total 700 / 700 1170 / 1870 Output Total 100 / 100 Balance 700 / 700 1170 / 1870 -100 / -100 Weight 205 lb Intake: IV 700 / 700 470 / 1170 Oral 700 / 700 Output: Urine 100 / 100 Other: Urine Color Pale Pale Yellow Urine Appearance Clear Clear Cloudy Urine Odor Normal None Comment LNAS observed 200 ML of urine in condom catheter, [employer] emptied. Stool Size Moderate Stool Characteristics Soft Formed Brown Data Completed and Pending Labs on day of discharge: Labs from last 24 hours 03/27/25 03/26/25 03/23/25 06:10 13:49 09:10 WBC 2.15 L RBC 2.42 L Hgb 7.0 L* 6.5 L* Hct 22.2 L 21.0 L MCV 92 MCH 28.9 MCHC 31.5 L RDW 16.3 H Plt Count 105 L MPV 10.5 Immature Gran % 0.5 Neutrophils % 37.2 Lymphocytes % 43.7 Monocytes % 17.2 Eosinophils % 0.9 Basophils % 0.5 Nucleated RBC % 0.9 H Absolute Neutrophils 0.80 L Absolute Lymphocytes 0.94 L Absolute Monocytes 0.37 Absolute Eosinophils 0.02 Absolute Basophils 0.01 RBC Morphology Normal Hep-Induced Plt Ab Allyssa 0.070 Heparin-PF4 Ab Inhibit Not Applicable Heparin-PF4 Ab Interp Negative Heparin-PF4 Ab Comment See Comment PFSH All Active Problems (Updated 03/27/25 @ 08:32 by Ar Lala MD) Anemia (Chronic) Hypokalemia (Acute) Thrombocytopenia due to drugs (Acute) Hypomagnesemia (Acute) Neutropenia (Acute) Sepsis (Acute) Neutropenia with fever (Acute) Pleural effusion (Acute) Advanced care planning/counseling discussion (Acute) Palliative care patient (Acute) Obesity (Chronic) Port-A-Cath in place (Acute) Stage IV adenocarcinoma of endometrium (Chronic) Dx 2024: Large R pleural effusion and +retroperitoneal and pelvic lymph nodes. 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 Staging hysterectomy scheduled 12/10/24 Thickened endometrium (Acute) Postmenopausal bleeding (Acute) Nail dystrophy (Acute) Onychomycosis (Acute) Type 2 diabetes mellitus with peripheral neuropathy (Chronic) Peripheral neuropathy (Acute) Screening for colon cancer (Acute) Diabetes (Chronic) Hypertension (Chronic) Morbid obesity (Acute) Medical History Accessory skin tags Seborrheic keratosis, inflamed Back pain Headache Chronic back pain Ocular hypertension Hyperlipidemia Depression Snoring (02/05/18) Neoplasm of unspecified nature of bone, soft tissue, and skin (02/05/18) Surgical History History of colonoscopy (~02/2022) History of tubal ligation History of cholecystectomy Family History Father FH: prostate cancer Sister Cancer cervical Social History Smoking/Tobacco Use Status: Never Second Hand Exposure: No Smoking risk assessment performed?: Yes Alcohol Intake: former Drug use: Never Substance use type: does not use Household members: spouse Housing: house Sexually active: Yes Current gender identity: female What is your relationship status?: Panel score (0-1 are the most socially isolated patients): 1 What type of physical activity do you participate in: none Seatbelt use: always Helmet use: Yes Do you feel safe at home: Yes Do you feel safe in your relationship?: Yes Female Reproductive History Menstrual Age of Menarche: 9 History History 4 Para 3 Hx # Term Pregnancies Multiple births Hx # Pregnancies Ectopic pregnancies AB induced Hx Number of Living Children AB spontaneous 1 Past Pregnancies Del. Date GA/Weeks # Preg Succ Route Wgt Sex Labor Lgth Anesth esia Location Prov Complic 08/29/87 37 No Yes vaginal 7 lb 5 oz Female 12/21/89 40 Yes vaginal 8 lb Male 07/14/92 40 No Yes vaginal 8 lb 2 oz Female Time Spent with Patient Time Spent with Patient: <45 minutes Time was spent: preparing to see the patient(eg.review tests), obtaining and/or reviewing separately otained hiistory, ordering medications,tests, procedures, referring, communicating with other health healthcare customer service, indepentently interpreting results, counseling the patient and care coordination
--- NOTE | 2025-03-27 09:11 | PDOC.CMDIS ---
Date of service: 03/27/25 Time of Service: 09:11 LACE Index Scoring Tool Questions: Length of Stay (in days): 4 - 6 Was the patient admitted via the E.D.?: Yes Comorbidities: Diabetes w/o Complication and Metastatic Solid Tumor E.D. Visits: 2 Answers: Total Score: 14 Risk of Readmission: High Risk Care Management Discharge Plan Reason for Hospitalization: neutropenic fever Discharge Plan: Jyoti will return home with no new services. She will follow up with her PCP and discharge plan of care and transport via private vehicle. Patient/Family Education Needs: Review discharge instructions, discuss Ask Me Three
== END 2025-03-27 10:38 | disposition home or self-care (01) | DRG 809 ==
LOC: ER 05:16 → ICU 06:26 → MS 03-25 16:44
PROVIDERS: Hospitalist; Admitting Provider Family Medicine; Emergency Provider Student in an Organized Health Care Education/Training Program; PCP Nurse Practitioner Family; Responsible Provider Family Medicine; Visit Provider Family Medicine
DX: D70.1 Agranulocytosis secondary to cancer chemotherapy (principal); B00.89 Other herpesviral infection; J91.0 Malignant pleural effusion; C54.1 Malignant neoplasm of endometrium; R50.81 Fever presenting with conditions classified elsewhere; D69.59 Other secondary thrombocytopenia; E83.42 Hypomagnesemia; E11.42 Type 2 diabetes mellitus with diabetic polyneuropathy; I10 Essential (primary) hypertension; D64.9 Anemia, unspecified; E87.6 Hypokalemia; T45.1X5A Adverse effect of antineoplastic and immunosuppressive drugs, initial encounter; F32.A Depression, unspecified; B35.1 Tinea unguium; Z95.828 Presence of other vascular implants and grafts; E78.5 Hyperlipidemia, unspecified; Z79.4 Long term (current) use of insulin; Z79.85 Long-term (current) use of injectable non-insulin antidiabetic drugs; Z79.84 Long term (current) use of oral hypoglycemic drugs
CPT/HCPCS: 00123; 36592; 80048; 80053; 82042; 82805; 85027; 86022; 87040; 87637; 93005; 96365; 96366; 96367; 96368; 96376; 99291; 71046; 80202; 81003; 81015; 81373; 83605; 83615; 83735; 84157; 85014; 85018; 85025; 87070; 87075; 87086; 87205; 89051; 93010; 94760; 99223; 99232; 99233; 99239; J0133; J0692; J1644; J1815; J2020; J2405; J2543; J3373; J3475

== ENCOUNTER 2025-04-03 12:16 | Outpatient (CLI) | payer OTHER, SELFPAY ==
--- NOTE | 2025-04-03 12:00 | DI.RAD_ITS ---
Exam(s) XR CHEST 2V PA LATERAL EXAM: XR CHEST 2V PA LATERAL CLINICAL HISTORY: Right pleural effusion, J90. TECHNIQUE: 2D digital imaging was performed. COMPARISON: CR,XR XR CHEST 2V PA LATERAL from 03/22/2025 FINDINGS: 2 views: Distal tip of the right Port-A-Cath is in the upper right atrium, unchanged. Heart size is normal. The mediastinum is not widened. Lower right lung field mild infiltrate again noted, similar to previous. The size of the right pleural effusion is unchanged from 03/22/2025. There appears to be a thin caliber pleural drain in place. No left lung infiltrate and no pleural effusion on the left side. IMPRESSION: Size of the right pleural effusion is unchanged from 03/22/2025. DATA REPOSITORY: RADIATION DOSE DELIVERED:
== END 2025-04-03 12:36 ==
LOC: DI 12:16
PROVIDERS: PCP Nurse Practitioner Family; Visit Provider Surgery
DX: J90 Pleural effusion, not elsewhere classified (principal)
CPT/HCPCS: 71046

== ENCOUNTER 2025-04-30 01:54 | Outpatient (RCR) | payer OTHER, SELFPAY ==
[2025-04-09] MEDS: Normal Saline Flush 10 ML SYR IVP (07:30)
[2025-04-09 08:03] LABS: Abs Immature Grans 0.02 10^3/uL (0.0-0.06); HCT 26.4 % (36.0-46.0); HGB 8.0 g/dL (11.2-15.7); Immature Grans % 0.4 %; MCH 28.4 pg (27.0-33.0); MCHC 30.3 % (32.0-36.0); MCV 94 fL (80-95); MPV 9.5 fL (8.0-11.0); Platelet Count 203 10^3/uL (130-400); RBC 2.82 10^6/uL (3.93-5.22); RDW 17.5 % (11.7-14.6); RDW-SD 58.7 fL; WBC 4.62 10^3/uL (4.4-10.8)
[2025-04-09 08:28] LABS: ALT 20 U/L (14-59); AST 18 U/L (15-37); Albumin 2.9 g/dL (3.4-5.0); Alkaline Phosphatase 61 U/L (46-116); Anion Gap 11.1 mmol/L (3-11); BUN 11 mg/dL (7-18); Bilirubin, Total 0.4 mg/dL (0.2-1.0); CO2 27.9 mmol/L (21.0-32.0); Calcium 9.1 mg/dL (8.5-10.1); Chloride 103 mmol/L (98-107); Estimated GFR 81.21 (mL/min/1.73m2); Glucose 130 mg/dL (74-106); Potassium 4.0 mmol/L (3.5-5.1); Sodium 142 mmol/L (136-145); TSH 4.83 uIU/mL (0.36-3.74); Total Protein 7.3 g/dL (6.4-8.2)
[2025-04-09 09:33] LABS: Magnesium 1.2 mg/dL (1.8-2.4)
[2025-04-30 07:50] LABS: Abs Immature Grans 0.05 10^3/uL (0.0-0.06); HCT 25.8 % (36.0-46.0); HGB 7.9 g/dL (11.2-15.7); Immature Grans % 0.9 %; MCH 30.3 pg (27.0-33.0); MCHC 30.6 % (32.0-36.0); MCV 99 fL (80-95); MPV 9.8 fL (8.0-11.0); Platelet Count 133 10^3/uL (130-400); RBC 2.61 10^6/uL (3.93-5.22); RDW 19.8 % (11.7-14.6); RDW-SD 67.0 fL; WBC 5.31 10^3/uL (4.4-10.8)
[2025-04-30] MEDS: Normal Saline Flush 10 ML SYR IVP (08:12)
[2025-04-30 08:18] LABS: ALT 21 U/L (14-59); AST 19 U/L (15-37); Albumin 2.9 g/dL (3.4-5.0); Alkaline Phosphatase 51 U/L (46-116); Anion Gap 6.7 mmol/L (3-11); BUN 11 mg/dL (7-18); Bilirubin, Total 0.3 mg/dL (0.2-1.0); CO2 29.3 mmol/L (21.0-32.0); Calcium 9.1 mg/dL (8.5-10.1); Chloride 108 mmol/L (98-107); Estimated GFR 81.21 (mL/min/1.73m2); Glucose 114 mg/dL (74-106); Potassium 3.7 mmol/L (3.5-5.1); Sodium 144 mmol/L (136-145); TSH 8.16 uIU/mL (0.36-3.74); Total Protein 6.9 g/dL (6.4-8.2)
[2025-04-30 09:02] LABS: Magnesium 1.3 mg/dL (1.8-2.4)
== END 2025-05-04 23:59 | disposition home or self-care (01) ==
LOC: INF 01:54
PROVIDERS: Nurse Practitioner Family; Obstetrics & Gynecology Gynecologic Oncology; PCP Nurse Practitioner Family; Visit Provider Internal Medicine Hematology & Oncology
DX: C54.1 Malignant neoplasm of endometrium (principal)
CPT/HCPCS: 36591; 80053; 96523; 83735; 84439; 84443; 85025

== ENCOUNTER 2025-05-08 11:01 | Outpatient (CLI) | payer OTHER, SELFPAY ==
--- NOTE | 2025-05-08 10:11 | DI.RAD_ITS ---
Exam(s) XR CHEST 2V PA LATERAL EXAM: XR CHEST 2V PA LATERAL CLINICAL HISTORY: pleural effusion J90 TECHNIQUE: 2D digital imaging was performed. Two views. COMPARISON: CT CT CHEST PE ABD PELVIS W from 02/28/2025 CR,XR XR PORTABLE CHEST AP from 03/01/2025 CR,XR XR CHEST 2V PA LATERAL from 03/22/2025 CR XR CHEST 2V PA LATERAL from 04/03/2025 FINDINGS: HEART: Normal size. Port-A-Cath again noted. Aorta: Not dilated. PULMONARY VASCULATURE: Normal. MEDIASTINUM: Unremarkable. LUNGS: Stable mildly increased densities in the right lower lobe. PLEURAL SPACE: Stable size and appearance of a small right pleural effusion. Right inferior pleural drain again noted. No pneumothorax. BONE:Unremarkable for age. SOFT TISSUES: Unremarkable. IMPRESSION: Stable size of small right pleural effusion and right basilar densities. No acute abnormality. DATA REPOSITORY: RADIATION DOSE DELIVERED:
== END 2025-05-08 11:21 ==
LOC: DI 11:01
PROVIDERS: PCP Nurse Practitioner Family; Visit Provider Surgery
DX: J90 Pleural effusion, not elsewhere classified (principal)
CPT/HCPCS: 71046

== ENCOUNTER 2025-05-21 08:00 | Outpatient (RCR) | payer OTHER, SELFPAY ==
[2025-05-19 08:52] LABS: Abs Immature Grans 0.02 10^3/uL (0.0-0.06); HCT 24.9 % (36.0-46.0); HGB 7.5 g/dL (11.2-15.7); Immature Grans % 0.5 %; MCH 30.4 pg (27.0-33.0); MCHC 30.1 % (32.0-36.0); MCV 101 fL (80-95); MPV 9.9 fL (8.0-11.0); Platelet Count 101 10^3/uL (130-400); RBC 2.47 10^6/uL (3.93-5.22); RDW 20.1 % (11.7-14.6); RDW-SD 73.2 fL; WBC 4.35 10^3/uL (4.4-10.8)
[2025-05-19] MEDS: Normal Saline Flush 10 ML SYR IVP (09:27)
[2025-05-19 09:59] LABS: Anisocytosis 2+
[2025-05-19 10:05] LABS: Hypochromasia 1+
[2025-05-19 10:07] LABS: Microcytosis 1+
[2025-05-19 10:41] VITALS: BP 113/66; PULSE 96; RESP 19; TEMP 35.7; O2SAT 97
[2025-05-19 11:00] VITALS: BP 96/64; PULSE 80; RESP 19; TEMP 35.9; O2SAT 97
[2025-05-19 11:15] VITALS: BP 100/68; PULSE 86; RESP 18; TEMP 35.9; O2SAT 95
[2025-05-19 11:26] VITALS: BP 104/70; PULSE 87; RESP 18; TEMP 36.3; O2SAT 97
[2025-05-19 12:00] VITALS: BP 113/61; PULSE 88; RESP 18; TEMP 36.4; O2SAT 98
[2025-05-21 08:05] LABS: Abs Immature Grans 0.02 10^3/uL (0.0-0.06); HCT 28.4 % (36.0-46.0); HGB 8.8 g/dL (11.2-15.7); Immature Grans % 0.4 %; MCH 30.8 pg (27.0-33.0); MCHC 31.0 % (32.0-36.0); MCV 99 fL (80-95); MPV 9.1 fL (8.0-11.0); RBC 2.86 10^6/uL (3.93-5.22); RDW 20.0 % (11.7-14.6); RDW-SD 71.8 fL; WBC 4.61 10^3/uL (4.4-10.8)
[2025-05-21] MEDS: Normal Saline Flush 10 ML SYR IVP (08:12)
[2025-05-21 08:16] LABS: Platelet Count 92 10^3/uL (130-400)
[2025-05-21 08:18] LABS: ALT 24 U/L (14-59); AST 24 U/L (15-37); Albumin 2.9 g/dL (3.4-5.0); Alkaline Phosphatase 62 U/L (46-116); Anion Gap 9.1 mmol/L (3-11); BUN 15 mg/dL (7-18); Bilirubin, Total 0.4 mg/dL (0.2-1.0); CO2 26.9 mmol/L (21.0-32.0); Calcium 9.1 mg/dL (8.5-10.1); Chloride 107 mmol/L (98-107); Estimated GFR 81.21 (mL/min/1.73m2); Glucose 126 mg/dL (74-106); Potassium 3.8 mmol/L (3.5-5.1); Sodium 143 mmol/L (136-145); Total Protein 6.7 g/dL (6.4-8.2)
== END 2025-06-03 23:59 | disposition home or self-care (01) ==
LOC: INF 08:00
PROVIDERS: Obstetrics & Gynecology Gynecologic Oncology; PCP Nurse Practitioner Family; Visit Provider Internal Medicine Hematology & Oncology
DX: C54.1 Malignant neoplasm of endometrium (principal)
CPT/HCPCS: 36430; 36591; 80053; 86850; 86900; 86901; 86920; 85025; P9016

== ENCOUNTER 2025-06-24 11:26 | Day surgery (SDC) | payer OTHER, SELFPAY ==
--- NOTE | 2025-06-23 20:29 | PDOC.DSDIS_ITS ---
Date of service: 06/24/25 Discharge Plan Disposition Patient Disposition: Home Condition: Good Discharge Details Reason For Visit: removal of right sided pluerx catheter Attending Provider: Clayton Springer Primary Care Provider: JAYDA AGUILERA Home Meds and New Rx's Prescriptions: Continued ondansetron 4 mg tablet,disintegrating 4 - 8 mg PO Q8H PRN Patient Comments: place ONE TO TWO tablets ON THE TONGUE every EIGHT hours needed, not TO exceed FOUR tablets PER DAY prochlorperazine maleate 10 mg tablet 10 mg PO Q6H PRN Patient Comments: TAKE ONE TABLET BY MOUTH EVERY 6 HOURS ON schedule FOR THE first THREE DAYS AFTER chemotherapy, THEN take ONE tablet every SIX hours needed FOR NAUSEA AND vomiting dexamethasone 4 mg tablet 4 mg PO BID PRN Patient Comments: TAKE ONE TABLET BY MOUTH TWICE DAILY NEEDED FOR NAUSEA OR FOR VOMITING simvastatin 20 mg tablet 20 mg PO DAILY cholecalciferol (vitamin D3) 25 mcg (1,000 unit) capsule 25 mcg PO DAILY omega-3 fatty acids 500 mg capsule 500 mg PO DAILY multivitamin Tablet 1 tab PO DAILY cetirizine 5 mg tablet 5 mg PO DAILY PRN insulin glargine U-300 conc [Toujeo Max U-300 SoloStar] 300 unit/mL (3 mL) insulin pen 12 unit subcut HS Xiidra 5 % dropperette 2 drp ophthalmic (eye) QAM AND QPM Rx Instructions: administer approximately 12 hours apart (DME) Dexcom G7 Sensor Device MISCELLANEOUS Patient Comments: USE DIRECTED metformin 500 mg tablet extended release 24 hr 500 mg PO HS Discharge Instructions Additional Instructions: Jyoti was very good seeing you, as always. You did great with removal of the tube. As you know, there is a Band-Aid over the incision site, and 1 simple stitch underneath it that. Beginning tomorrow, you can remove the bandage, and shower with warm soapy water. Please be sure to wash off the incision site. After your shower, you are welcome to replace the Band-Aid if you find that most comfortable. Otherwise, there is nothing special that needs to be done for the stitch. Just keep it clean every day. I set up a follow-up visit in our office on the at 2:30 PM. Will remove the stitch at that point. If you need anything at all, please do not hesitate to call. 1. Resume all of your regular medications. 2. Use ice packs over the incisions site to help with pain after surgery. 3. Okay to use tylenol and ibuprofen over the counter as needed. 4. Leave bandage in place for 24 hours, then remove. 5. Shower with warm soapy water. Pat dry. Use a bandaid if needed to protect your clothing. 6. No soaking or tub baths until I see you in the office. 7. No heavy lifting until I see you in the office. 8. Call the office (or go directly to the emergency room after hours) if you notice any of the following: Develop chills (warm to touch), or if you have a thermometer and your temperature is above 101 Difficulty breathing or difficultly swallowing Persistent vomiting Any bleeding ? exceeding one tablespoon 9. Call your physician if the site where your intravenous was started becomes red, swollen, painful, and warm to touch. Referrals: Clayton Springer MD [ [facility] STAFF PHYSICIAN, Surgery] - 07/01/25 2:30 pm Activity:: Activity as Tolerated Remove Dressings/Wound Care:: 24 hours Shower/Bathe:: 24 hours Diet:: As Tolerated Discharge Orders Discharge Orders: Discharge Order (Routine); Ordered 06/23/25 Ordered By: Clayton Springer DS: Diagnosis Discharge Diagnosis (1) Pleural effusion: Status: Acute Asessment and Plan: Outpatient follow-up for suture removal
--- NOTE | 2025-06-23 20:31 | ROE_ITS ---
Operative Note Operative Note PRE-OP DIAGNOSIS: Right sided pleurx catheter POST-OP DIAGNOSIS: same PROCEDURE: Removal of right sided pleurx catheter SURGEON: Clayton Springer Refer to Anesthesia Record ESTIMATED BLOOD LOSS: 5 PATHOLOGY: none sent COMPLICATIONS: None Patient was transported to: same day Patient's condition: stable Indications: Jyoti is a 64-year-old woman with endometrial cancer. She developed a right sided pleural effusion during the treatment of her cancer. She underwent insertion of a PleurX catheter. The pleural effusion has resolved, she has not used the PleurX catheter in several months. Repeat imaging confirms no s ignificant right sided pleural effusion, so she is undergoing elective removal of the catheter. Procedure Description: I met with Jyoti in the preoperative area, and we reviewed the plan for removal of the PleurX. Next, we moved back to the procedure room. Dressings were all removed. The area of the insertion was prepped, and draped with towels. I anesthetized the surrounding skin with Marcaine mixed with Exparel. Next, using hemostat, I gently dissected the tract of the PleurX catheter. With some gentle traction, I was able to completely mobilize the cuff. Once this was released, and with markedly using positive pressure ventilation, the catheter was removed. She tolerated this excellent. The tissue was healthy, there was no signs of any infection. A single nylon suture was used to reapproximate the skin. A bandage was applied, and Jyoti was brought back to the day surgery unit for a follow-up x-ray. Date of Procedure: 06/24/25
--- NOTE | 2025-06-24 | DI.RAD_ITS ---
Exam(s) XR PORTABLE CHEST AP EXAM: XR PORTABLE CHEST AP CLINICAL HISTORY: Removal of right chest tube TECHNIQUE: 2D digital imaging was performed of the chest. One image was obtained. An AP view was obtained. COMPARISON: CR,XR XR PORTABLE CHEST AP from 03/01/2025 CR XR CHEST 2V PA LATERAL from 05/08/2025 FINDINGS: MEDIASTINUM: Normal. HEART: Normal. PULMONARY VASCULATURE: Normal. LUNGS: The left lung remains clear. Stable small opacities are seen in the right lung base. PLEURAL SPACE: There is blunting of the right costophrenic angle suggesting a small pleural effusion which is unchanged. There is no left pleural effusion. There is no pneumothorax. BONE:Within normal limits for the patient's age. OTHER FINDINGS:The indwelling central venous catheter is stable. IMPRESSION: Overall no significant change in appearance of the chest x-ray since 05/08/2025. DATA REPOSITORY: RADIATION DOSE DELIVERED:
[2025-06-24 11:40] VITALS: BP 149/80; PULSE 94; RESP 18; TEMP 35.6; O2SAT 94
[2025-06-24 13:08] VITALS: BP 110/63; PULSE 70; RESP 16; TEMP 36.3; O2SAT 97
[2025-06-24] MEDS: Bupivacaine LIPOSOME/PF 133 MG/10 ML VIAL IJ (13:11)
[2025-06-24] MEDS: Bupivacaine 0.5% Pres-Free 30 ML VIAL (13:11)
== END 2025-06-24 13:45 | disposition home or self-care (01) ==
LOC: SUR 11:27
PROVIDERS: PCP Nurse Practitioner Family; Visit Provider Surgery
PROC: (CPT 36590; principal; 2025-06-24 11:00)
DX: J90 Pleural effusion, not elsewhere classified (principal)
CPT/HCPCS: 32552; 71045; J0665; J0666

== ENCOUNTER 2025-07-02 02:27 | Outpatient (RCR) | payer OTHER, SELFPAY ==
[2025-07-02 07:40] LABS: Abs Immature Grans 0.01 10^3/uL (0.0-0.06); HCT 33.7 % (36.0-46.0); HGB 10.4 g/dL (11.2-15.7); Immature Grans % 0.2 %; MCH 28.2 pg (27.0-33.0); MCHC 30.9 % (32.0-36.0); MCV 91 fL (80-95); MPV 9.1 fL (8.0-11.0); Platelet Count 127 10^3/uL (130-400); RBC 3.69 10^6/uL (3.93-5.22); RDW 14.3 % (11.7-14.6); RDW-SD 48.2 fL; WBC 4.07 10^3/uL (4.4-10.8)
[2025-07-02] MEDS: Normal Saline Flush 10 ML SYR IVP (07:50)
[2025-07-02 08:03] LABS: ALT 23 U/L (14-59); AST 27 U/L (15-37); Albumin 3.0 g/dL (3.4-5.0); Alkaline Phosphatase 68 U/L (46-116); Anion Gap 10.4 mmol/L (3-11); BUN 14 mg/dL (7-18); Bilirubin, Total 0.3 mg/dL (0.2-1.0); CO2 27.6 mmol/L (21.0-32.0); Calcium 9.4 mg/dL (8.5-10.1); Chloride 107 mmol/L (98-107); Estimated GFR 70.51 (mL/min/1.73m2); Glucose 103 mg/dL (74-106); Potassium 3.9 mmol/L (3.5-5.1); Sodium 145 mmol/L (136-145); TSH 6.78 uIU/mL (0.36-3.74); Total Protein 7.1 g/dL (6.4-8.2)
[2025-07-02 10:25] LABS: Magnesium 1.4 mg/dL (1.8-2.4)
== END 2025-07-04 23:59 | disposition home or self-care (01) ==
LOC: INF 02:27
PROVIDERS: Obstetrics & Gynecology Gynecologic Oncology; PCP Nurse Practitioner Family; Visit Provider Internal Medicine Hematology & Oncology
DX: Z45.2 Encounter for adjustment and management of vascular access device (principal); C54.1 Malignant neoplasm of endometrium
CPT/HCPCS: 36591; 80053; 83735; 84439; 84443; 85025

== ENCOUNTER 2025-07-23 03:18 | Outpatient (RCR) | payer OTHER, SELFPAY ==
[2025-07-23 07:29] LABS: Abs Immature Grans 0.01 10^3/uL (0.0-0.06); HCT 33.2 % (36.0-46.0); HGB 10.4 g/dL (11.2-15.7); Immature Grans % 0.2 %; MCH 28.0 pg (27.0-33.0); MCHC 31.3 % (32.0-36.0); MCV 89 fL (80-95); MPV 9.7 fL (8.0-11.0); Platelet Count 109 10^3/uL (130-400); RBC 3.72 10^6/uL (3.93-5.22); RDW 15.6 % (11.7-14.6); RDW-SD 49.3 fL; WBC 4.90 10^3/uL (4.4-10.8)
[2025-07-23] MEDS: Normal Saline Flush 10 ML SYR IVP (07:31)
[2025-07-23 07:47] LABS: ALT 21 U/L (10-49); AST 30 U/L (<34); Albumin 4.1 g/dL (3.4-5.0); Alkaline Phosphatase 73 U/L (46-116); Anion Gap 11.9 mmol/L (3-11); BUN 9 mg/dL (9-23); Bilirubin, Total 0.40 mg/dL (0.2-1.2); CO2 25.1 mmol/L (20.0-31.0); Calcium 9.5 mg/dL (8.3-10.6); Chloride 106 mmol/L (98-107); Glucose 127 mg/dL (74-106); Potassium 3.7 mmol/L (3.5-5.1); Sodium 143 mmol/L (136-145); Total Protein 7.0 g/dL (5.7-8.2)
[2025-07-23 07:49] LABS: TSH 4.26 uIU/mL (0.55-4.78)
[2025-07-23 14:16] LABS: Magnesium 1.1 mg/dL (1.6-2.6)
== END 2025-08-03 23:59 | disposition home or self-care (01) ==
LOC: INF 03:18
PROVIDERS: Obstetrics & Gynecology Gynecologic Oncology; PCP Nurse Practitioner Family; Visit Provider Internal Medicine Hematology & Oncology
DX: Z45.2 Encounter for adjustment and management of vascular access device (principal); C54.1 Malignant neoplasm of endometrium
CPT/HCPCS: 36591; 80053; 83735; 84439; 84443; 85025

== ENCOUNTER → 2025-08-14 01:01 | Outpatient (CLI) | payer OTHER, SELFPAY ==
--- NOTE | 2025-08-14 | DI.CT_ITS ---
Exam(s) CT CHEST/ABD/PEL W EXAM: CT CHEST/ABD/PEL W CLINICAL HISTORY: ENDOMETRIAL CA, S/P 6 CYCLES CARBO/TAXO/PEMBRO. TECHNIQUE: Imaging Protocol: Axial computed tomography images with coronal and sagittal reformatted images were created and reviewed. Computer aided detection (CAD) was utilized. CONTRAST MATERIAL: Intravenous: Omnipaque 350 Contrast volume:100 ml Oral: Yes COMPARISON: CT CT CHEST PE ABD PELVIS W from 02/28/2025 CR,XR XR PORTABLE CHEST AP from 03/01/2025 CR,XR XR CHEST 2V PA LATERAL from 03/22/2025 CR XR CHEST 2V PA LATERAL from 04/03/2025 CR XR CHEST 2V PA LATERAL from 05/08/2025 CR XR PORTABLE CHEST AP from 06/24/2025 FINDINGS: CHEST: Pulmonary parenchyma: Right basilar atelectasis. Improvement in bilateral ground-glass opacities. Bilateral residual opacities and areas of air trapping remain present. There is coarsening of the interstitium seen, greatest at the right lower lobe. These findings could be secondary to chemotherapeutic agents. No dominant measurable mass. There is a 4 millimeter peripheral nodule in the right upper lobe. Tracheobronchial tree: No bronchiectasis. No mucous plugging.No bronchial wall thickening. Pleura: There is a small small right pleural effusion. This has dramatically decreased in size from the previous exam. No pneumothorax. Mediastinum: Mildly enlarged mediastinal lymph nodes. A right paratracheal node measures 18 millimeters. Subcarinal nodes measures 3 cm together. There is a small node in the right pericardial fat measuring 9 millimeters. Pulmonary arteries: No visible emboli. Cardiovascular: Normal heart size. No pericardial effusion. The ascending thoracic aorta measures 4.5 cm Bones: Degenerative changes in the spine. No lytic or blastic lesions. No compression fractures. Soft tissues: Port in right upper chest wall. ABDOMEN and PELVIS: Liver: Normal density. No suspicious mass. Gallbladder and biliary tract: Cholecystectomy. No biliary dilatation. Pancreas: Normal density, no abnormal calcifications or inflammatory process. Spleen: Normal. Kidneys: Normal size, contour and axis. No radiodense stones. No obstructive uropathy. No suspicious masses seen. Adrenal glands: No masses seen. Aorta: Abdominal portion non-dilated. Lymph nodes: para-aortic adenopathy again noted which appears stable. The left iliac chain lymph node also appears stable or slightly decreased in size. Soft tissues: Unremarkable. Bladder: Nearly empty but unremarkable. Previously noted calcifications in an noted superior to the bladder no longer present. Bowel: No obstruction or bowel wall thickening. Peritoneal cavity: No ascites. No focal collection. No mesenteric inflammatory response. No free air. Bones: Unremarkable for age. Reproductive organs: Hysterectomy. IMPRESSION: Significant decrease in size of right pleural effusion, with residual small effusion is present. No abnormal pleural nodularity or enhancement. Significantly improved bilateral ground-glass opacities. Mild residual opacities persist. There are increased interstitial markings greatest at the right lung base. The findings could be related to drug toxicity versus metastatic disease. Small mediastinal lymph nodes are present. Stable para-aortic and left iliac chain adenopathy. Status post hysterectomy. RADIATION DOSE DELIVERED: 1,097.01mGy.cm Total DLP DATA REPOSITORY: All CT scans at this facility are submitted to the National Radiology Data Registry (NRDR) Dose Index Registry (DIR) with the [employer] ([employer]). RADIATION OPTIMIZATION: All CT scans at this facility use at least one of these dose optimization techniques: automated exposure control; mA and/or kV adjustment per patient size (includes targeted exams where dose is matched to clinical indication); or iterative reconstruction.
[2025-08-14] MEDS: Barium Sulfate 2% W/V-Creamy Vanilla Smoothie 450 ML BTL PO (07:22)
[2025-08-14] MEDS: Barium Sulfate 2% W/V-Berry Smoothie 450 ML BTL PO (07:22)
[2025-08-14] MEDS: Normal Saline - Diluent 50 ML VIAL IJ (09:33)
[2025-08-14] MEDS: Normal Saline Flush 10 ML SYR IVP (09:33)
[2025-08-14] MEDS: Omnipaque 350 MG/ML 500 ML BTL-Imaging package IJ (09:34)
== END ==
LOC: DI 01:01
PROVIDERS: PCP Nurse Practitioner Family; Visit Provider Obstetrics & Gynecology Gynecologic Oncology
DX: C54.1 Malignant neoplasm of endometrium (principal); Z90.710 Acquired absence of both cervix and uterus
CPT/HCPCS: 74177; 71260

== ENCOUNTER 2025-08-19 00:59 | Outpatient (RCR) | payer OTHER, SELFPAY ==
[2025-08-14] MEDS: Normal Saline Flush 10 ML SYR IVP (08:37)
[2025-08-19 08:47] LABS: Abs Immature Grans 0.00 10^3/uL (0.0-0.06); HCT 34.2 % (36.0-46.0); HGB 10.7 g/dL (11.2-15.7); Immature Grans % 0.0 %; MCH 29.0 pg (27.0-33.0); MCHC 31.3 % (32.0-36.0); MCV 93 fL (80-95); MPV 9.2 fL (8.0-11.0); Platelet Count 113 10^3/uL (130-400); RBC 3.69 10^6/uL (3.93-5.22); RDW 17.6 % (11.7-14.6); RDW-SD 59.8 fL; WBC 4.10 10^3/uL (4.4-10.8)
[2025-08-19 09:06] LABS: Magnesium 1.1 mg/dL (1.6-2.6)
[2025-08-19 09:08] LABS: ALT 18 U/L (10-49); AST 29 U/L (<34); Albumin 3.9 g/dL (3.2-5.0); Alkaline Phosphatase 69 U/L (46-116); Anion Gap 10.7 mmol/L (3-11); BUN 15 mg/dL (9-23); Bilirubin, Total 0.3 mg/dL (0.2-1.2); CO2 26.3 mmol/L (20.0-31.0); Calcium 9.1 mg/dL (8.3-10.6); Chloride 108 mmol/L (98-107); Glucose 129 mg/dL (74-106); Potassium 3.3 mmol/L (3.5-5.1); Sodium 145 mmol/L (136-145); Total Protein 6.8 g/dL (5.7-8.2)
[2025-08-19 09:10] LABS: TSH 5.39 uIU/mL (0.55-4.78)
[2025-08-19] MEDS: Normal Saline Flush 10 ML SYR IVP (10:47)
[2025-10-01 08:50] LABS: Abs Immature Grans 0.00 10^3/uL (0.0-0.06); HCT 35.1 % (36.0-46.0); HGB 10.9 g/dL (11.2-15.7); Immature Grans % 0.0 %; MCH 27.6 pg (27.0-33.0); MCHC 31.1 % (32.0-36.0); MCV 89 fL (80-95); MPV 9.4 fL (8.0-11.0); Platelet Count 115 10^3/uL (130-400); RBC 3.95 10^6/uL (3.93-5.22); RDW 14.3 % (11.7-14.6); RDW-SD 45.9 fL; WBC 2.95 10^3/uL (4.4-10.8)
[2025-10-01 09:10] LABS: ALT 14 U/L (10-49); AST 22 U/L (<34); Albumin 3.8 g/dL (3.2-5.0); Alkaline Phosphatase 67 U/L (46-116); Anion Gap 11 mmol/L (3-11); BUN 16 mg/dL (9-23); Bilirubin, Total 0.3 mg/dL (0.2-1.2); CO2 26.0 mmol/L (20.0-31.0); Calcium 9.1 mg/dL (8.3-10.6); Chloride 108 mmol/L (98-107); Glucose 146 mg/dL (74-106); Magnesium 1.0 mg/dL (1.6-2.6); Potassium 3.5 mmol/L (3.5-5.1); Sodium 145 mmol/L (136-145); Total Protein 6.8 g/dL (5.7-8.2)
[2025-10-01 09:11] LABS: TSH 6.32 uIU/mL (0.55-4.78)
== END 2025-09-03 23:59 | disposition home or self-care (01) ==
LOC: INF 00:59
PROVIDERS: Obstetrics & Gynecology Gynecologic Oncology; PCP Nurse Practitioner Family; Visit Provider Internal Medicine Hematology & Oncology
DX: Z45.2 Encounter for adjustment and management of vascular access device (principal); C54.1 Malignant neoplasm of endometrium
CPT/HCPCS: 36591; 80053; 96523; 83735; 84439; 84443; 85025